=== PATIENT | female | born 1960 | race Caucasian/White ===

== ENCOUNTER 2017-05-10 10:57 | Inpatient (IN) | payer OTHER ==
[2017-05-10 11:43] VITALS: BMI 26.9
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
[2017-05-10] MEDS ORDERED: MAG HYDROX/AL HYDROX/SIMETH 30 ML UNIT-DOSE CUP PO PRN (17:33)
[2017-05-10] MEDS ORDERED: MENTHOL/PHENOL 1 EACH UD MM PRN (17:33)
[2017-05-10] MEDS ORDERED: NICOTINE POLACRILEX 2 MG GUM BC PRN (17:33)
[2017-05-10] MEDS ORDERED: MAGNESIUM CITRATE 300 ML BOTTLE PO PRN (17:33)
[2017-05-10] MEDS ORDERED: ACETAMINOPHEN 325 MG TABLET (FP) PO PRN (17:33)
[2017-05-10] MEDS ORDERED: MAGNESIUM HYDROX 2400MG/30ML ORAL SUSPENSION 30 ML CUP PO PRN (17:33)
[2017-05-10] MEDS ORDERED: LOPERAMIDE HCL 2 MG CAPSULE PO PRN (17:33)
[2017-05-10] MEDS ORDERED: P-EPHED 60MG/TRIPROLIDI 2.5MG TABLET PO PRN (17:33)
[2017-05-10] MEDS ORDERED: guaiFENesin/D-METHORPHAN HB 10 ML UNIT-DOSE CUPS PO PRN (17:33)
[2017-05-10] MEDS ORDERED: ALBUTEROL SO4 6.7 GM HFA INHALER IH PRN (17:35)
[2017-05-10] MEDS ORDERED: ALBUTEROL SO4 2.5/IPRATROPIUM 0.5 INH SOL 3 ML VIAL.NEB. NEB PRN (17:36)
[2017-05-10] MEDS ORDERED: COLLOIDAL OATMEAL 1 BAR EACH TP PRN (17:37)
[2017-05-10] MEDS ORDERED: TUBERCULIN PPD 5 TU/0.1ML VIAL ID ONE (18:45)
[2017-05-10] MEDS: RANITIDINE HCL 150 MG TABLET (FP) PO SCH (21:58)
[2017-05-10] MEDS: BUPRENORPHINE/NALOXONE 8 MG/2 MG FILM PACKET SL SCH (21:58)
[2017-05-10] MEDS: SENNOSIDES 8.6MG TABLET (FP) PO SCH (21:58)
[2017-05-10] MEDS: THIAMINE HCL 100 MG TABLET (FP) PO SCH (21:58)
[2017-05-11] MEDS: diphenhydrAMINE HCL 50 MG CAPSULE PO PRN ×2 (00:26→21:26)
[2017-05-11] MEDS ORDERED: LEVOTHYROXINE NA 25 MCG TABLET (FP) ONE (05:42)
[2017-05-11] MEDS ORDERED: LEVOTHYROXINE NA 100 MCG TABLET (FP) ONE (05:42)
[2017-05-11] MEDS: LEVOTHYROXINE 100 MCG, LEVOTHYROXINE 25 MCG PO SCH (06:56)
[2017-05-11] MEDS ORDERED: LEVOTHYROXINE NA 125 MCG TABLET (FP) PO SCH (07:00)
[2017-05-11] MEDS ORDERED: PT OWN MED DRAWER 7, Y5N ONE (08:24)
--- NOTE | 2017-05-11 09:46 | EKG ---
Test Reason : Blood Pressure : / mmHG Vent. Rate : 066 BPM Atrial Rate : 066 BPM P-R Int : 170 ms QRS Dur : 088 ms QT Int : 422 ms P-R-T Axes : 073 038 060 degrees QTc Int : 442 ms NORMAL SINUS RHYTHM NORMAL ECG NO PREVIOUS ECGS AVAILABLE Confirmed by ERIC BHANDARI MD ([id number]) on 05/11/2017 9:45:52 AM Referred By: Confirmed By:ERIC BHANDARI MD
[2017-05-11 10:00] LABS: URINE APPEARANCE CLEAR; URINE BILIRUBIN NEGATIVE (NEGATIVE); URINE COLOR LTYELLOW; URINE GLUCOSE (UA) NEGATIVE (NEGATIVE); URINE KETONE NEGATIVE (NEGATIVE); URINE NITRITE NEGATIVE (NEGATIVE); URINE PROTEIN NEGATIVE (NEGATIVE); URINE UROBILINOGEN NEGATIVE E.U./dl (0.2-1.0)
[2017-05-11] MEDS ORDERED: LISINOPRIL 10 MG TABLET (FP) PO SCH (10:00)
[2017-05-11 10:01] LABS: MCH 28.4 pg (25.7-33.7); MCHC 33.1 g/dl (32.0-36.0); MEAN CELL VOLUME 85.8 fl (80-96); MEAN PLT VOLUME 8.9 fl (7.5-11.1); PLATELET COUNT 284 K/MM3 (134-434); RDW 13.8 % (11.6-15.6); WHITE BLOOD COUNT 8.1 K/mm3 (4.0-10.0)
[2017-05-11 10:11] LABS: URINE BLOOD 1+ (NEGATIVE); URINE LEUK ESTERASE 2+ (NEGATIVE)
[2017-05-11 10:12] LABS: URINE BACTERIA RARE /hpf (NONE SEEN); URINE MUCUS RARE; URINE RBC 5 /hpf (0-3); URINE WBC 10 /hpf (3-5)
[2017-05-11] MEDS: NICOTINE 14 MG/24 HOURS TOPICAL PATCH TD SCH (10:26)
[2017-05-11] MEDS: BUPRENORPHINE/NALOXONE 8 MG/2 MG FILM PACKET SL SCH ×2 (10:26→21:22)
[2017-05-11] MEDS: PRENATAL VITAMINS W/ FOLIC ACID TABLET (FP) PO SCH (10:26)
[2017-05-11] MEDS: RANITIDINE HCL 150 MG TABLET (FP) PO SCH ×2 (10:26→21:23)
[2017-05-11] MEDS: CALCIUM 250MG/VIT-D 125 UNITS 1 COMBO TABLET PO SCH (10:26)
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
[2017-05-11 10:51] LABS: ALBUMIN 3.6 g/dl (3.4-5.0); ALK PHOS 79 U/L (45-117); ANION GAP 7 (8-16); BILIRUBIN,TOTAL 0.4 mg/dL (0.2-1.0); CALCIUM 9.5 mg/dL (8.5-10.1); CO2 30 mmol/L (21-32); GLUCOSE,RANDOM 73 mg/dL (74-106); SGOT/AST 17 U/L (15-37); SGPT/ALT 14 U/L (12-78); TOT PROT 7.4 g/dl (6.4-8.2)
[2017-05-11] MEDS: lamoTRIgine 25 MG TABLET PO SCH ×2 (12:18→21:26)
[2017-05-11] MEDS: ESCITALOPRAM OXALATE 20 MG TABLET (FP) PO SCH (12:19)
[2017-05-11] MEDS: THIAMINE HCL 100 MG TABLET (FP) PO SCH (21:22)
[2017-05-11] MEDS: SENNOSIDES 8.6MG TABLET (FP) PO SCH (21:23)
[2017-05-11] MEDS: LISINOPRIL 10 MG TABLET (FP) PO SCH (21:26)
[2017-05-12] MEDS ORDERED: LEVOTHYROXINE NA 25 MCG TABLET (FP) ONE (06:20)
[2017-05-12] MEDS ORDERED: LEVOTHYROXINE NA 100 MCG TABLET (FP) ONE (06:20)
[2017-05-12] MEDS: LEVOTHYROXINE 100 MCG, LEVOTHYROXINE 25 MCG PO SCH (06:42)
[2017-05-12] MEDS: LISINOPRIL 10 MG TABLET (FP) PO SCH ×2 (09:38→21:29)
[2017-05-12] MEDS: PRENATAL VITAMINS W/ FOLIC ACID TABLET (FP) PO SCH (09:38)
[2017-05-12] MEDS: RANITIDINE HCL 150 MG TABLET (FP) PO SCH ×2 (09:38→21:29)
[2017-05-12] MEDS: ESCITALOPRAM OXALATE 20 MG TABLET (FP) PO SCH (09:39)
[2017-05-12] MEDS: BUPRENORPHINE/NALOXONE 8 MG/2 MG FILM PACKET SL SCH ×2 (09:39→21:30)
[2017-05-12] MEDS: lamoTRIgine 25 MG TABLET PO SCH ×2 (09:39→21:29)
[2017-05-12] MEDS: CALCIUM 250MG/VIT-D 125 UNITS 1 COMBO TABLET PO SCH (09:39)
[2017-05-12] MEDS: NICOTINE 14 MG/24 HOURS TOPICAL PATCH TD SCH (09:40)
[2017-05-12] MEDS: THIAMINE HCL 100 MG TABLET (FP) PO SCH (21:29)
[2017-05-12] MEDS: SENNOSIDES 8.6MG TABLET (FP) PO SCH (21:30)
[2017-05-13] MEDS: diphenhydrAMINE HCL 50 MG CAPSULE PO PRN ×2 (00:05→21:07)
[2017-05-13] MEDS ORDERED: LEVOTHYROXINE NA 100 MCG TABLET (FP) ONE (03:16)
[2017-05-13] MEDS ORDERED: LEVOTHYROXINE NA 25 MCG TABLET (FP) ONE (03:17)
[2017-05-13] MEDS: LEVOTHYROXINE 100 MCG, LEVOTHYROXINE 25 MCG PO SCH (06:44)
[2017-05-13] MEDS ORDERED: PT OWN MED DRAWER 7, Y5N ONE (08:12)
[2017-05-13] MEDS: LISINOPRIL 10 MG TABLET (FP) PO SCH ×2 (09:32→21:06)
[2017-05-13] MEDS: PRENATAL VITAMINS W/ FOLIC ACID TABLET (FP) PO SCH (09:33)
[2017-05-13] MEDS: RANITIDINE HCL 150 MG TABLET (FP) PO SCH ×2 (09:33→21:06)
[2017-05-13] MEDS: CALCIUM 250MG/VIT-D 125 UNITS 1 COMBO TABLET PO SCH (09:33)
[2017-05-13] MEDS: lamoTRIgine 25 MG TABLET PO SCH ×2 (09:33→21:06)
[2017-05-13] MEDS: ESCITALOPRAM OXALATE 20 MG TABLET (FP) PO SCH (09:34)
[2017-05-13] MEDS: NICOTINE 14 MG/24 HOURS TOPICAL PATCH TD SCH (09:34)
[2017-05-13] MEDS: BUPRENORPHINE/NALOXONE 8 MG/2 MG FILM PACKET SL SCH ×2 (09:34→21:07)
[2017-05-13] MEDS: THIAMINE HCL 100 MG TABLET (FP) PO SCH (21:06)
[2017-05-13] MEDS: SENNOSIDES 8.6MG TABLET (FP) PO SCH (21:06)
[2017-05-14] MEDS ORDERED: LEVOTHYROXINE NA 25 MCG TABLET (FP) ONE (03:15)
[2017-05-14] MEDS ORDERED: LEVOTHYROXINE NA 100 MCG TABLET (FP) ONE (03:15)
[2017-05-14] MEDS: LEVOTHYROXINE 100 MCG, LEVOTHYROXINE 25 MCG PO SCH (06:12)
[2017-05-14] MEDS: lamoTRIgine 25 MG TABLET PO SCH ×2 (10:03→21:29)
[2017-05-14] MEDS: PRENATAL VITAMINS W/ FOLIC ACID TABLET (FP) PO SCH (10:03)
[2017-05-14] MEDS: CALCIUM 250MG/VIT-D 125 UNITS 1 COMBO TABLET PO SCH (10:03)
[2017-05-14] MEDS: ESCITALOPRAM OXALATE 20 MG TABLET (FP) PO SCH (10:03)
[2017-05-14] MEDS: BUPRENORPHINE/NALOXONE 8 MG/2 MG FILM PACKET SL SCH ×2 (10:03→21:29)
[2017-05-14] MEDS: RANITIDINE HCL 150 MG TABLET (FP) PO SCH ×2 (10:04→21:29)
[2017-05-14] MEDS ORDERED: PT OWN MED DRAWER 7, Y5N ONE (10:04)
[2017-05-14] MEDS: NICOTINE 14 MG/24 HOURS TOPICAL PATCH TD SCH (10:05)
[2017-05-14] MEDS: LISINOPRIL 10 MG TABLET (FP) PO SCH ×2 (10:44→21:29)
[2017-05-14] MEDS ORDERED: IBUPROFEN 600 MG TABLET (FP) PO PRN (10:45)
--- NOTE | 2017-05-14 10:47 | PN ---
[facility] Progress Note Note: Pt. inadvertently hit left leg on chair Exam : No bruising noted, no injury P : Motrin 600mg prn for pain.
[2017-05-14] MEDS: SENNOSIDES 8.6MG TABLET (FP) PO SCH (21:29)
[2017-05-14] MEDS: THIAMINE HCL 100 MG TABLET (FP) PO SCH (21:31)
[2017-05-15] MEDS ORDERED: LEVOTHYROXINE NA 100 MCG TABLET (FP) ONE (05:40)
[2017-05-15] MEDS ORDERED: LEVOTHYROXINE NA 25 MCG TABLET (FP) ONE (05:41)
[2017-05-15] MEDS: LEVOTHYROXINE 100 MCG, LEVOTHYROXINE 25 MCG PO SCH (06:28)
[2017-05-15] MEDS ORDERED: PT OWN MED DRAWER 7, Y5N ONE (08:18)
[2017-05-15] MEDS: CALCIUM 250MG/VIT-D 125 UNITS 1 COMBO TABLET PO SCH (09:41)
[2017-05-15] MEDS: ESCITALOPRAM OXALATE 20 MG TABLET (FP) PO SCH (09:41)
[2017-05-15] MEDS: RANITIDINE HCL 150 MG TABLET (FP) PO SCH ×2 (09:41→21:21)
[2017-05-15] MEDS: LISINOPRIL 10 MG TABLET (FP) PO SCH ×2 (09:41→21:21)
[2017-05-15] MEDS: NICOTINE 14 MG/24 HOURS TOPICAL PATCH TD SCH (09:41)
[2017-05-15] MEDS: lamoTRIgine 25 MG TABLET PO SCH ×2 (09:41→21:21)
[2017-05-15] MEDS: PRENATAL VITAMINS W/ FOLIC ACID TABLET (FP) PO SCH (09:41)
[2017-05-15] MEDS: BUPRENORPHINE/NALOXONE 8 MG/2 MG FILM PACKET SL SCH ×2 (09:42→21:21)
[2017-05-15] MEDS: SENNOSIDES 8.6MG TABLET (FP) PO SCH (21:21)
[2017-05-15] MEDS: THIAMINE HCL 100 MG TABLET (FP) PO SCH (21:23)
[2017-05-15] MEDS: diphenhydrAMINE HCL 50 MG CAPSULE PO PRN (21:55)
[2017-05-16] MEDS ORDERED: LEVOTHYROXINE NA 100 MCG TABLET (FP) ONE (03:22)
[2017-05-16] MEDS ORDERED: LEVOTHYROXINE NA 25 MCG TABLET (FP) ONE (03:23)
[2017-05-16] MEDS: LEVOTHYROXINE 100 MCG, LEVOTHYROXINE 25 MCG PO SCH (06:09)
[2017-05-16] MEDS: BUPRENORPHINE/NALOXONE 8 MG/2 MG FILM PACKET SL SCH ×2 (09:47→21:14)
[2017-05-16] MEDS: lamoTRIgine 25 MG TABLET PO SCH ×2 (09:47→21:16)
[2017-05-16] MEDS: LISINOPRIL 10 MG TABLET (FP) PO SCH ×2 (09:47→21:17)
[2017-05-16] MEDS: NICOTINE 14 MG/24 HOURS TOPICAL PATCH TD SCH (09:47)
[2017-05-16] MEDS: PRENATAL VITAMINS W/ FOLIC ACID TABLET (FP) PO SCH (09:48)
[2017-05-16] MEDS: ESCITALOPRAM OXALATE 20 MG TABLET (FP) PO SCH (09:48)
[2017-05-16] MEDS: CALCIUM 250MG/VIT-D 125 UNITS 1 COMBO TABLET PO SCH (09:48)
[2017-05-16] MEDS: RANITIDINE HCL 150 MG TABLET (FP) PO SCH ×2 (09:48→21:14)
[2017-05-16] MEDS: THIAMINE HCL 100 MG TABLET (FP) PO SCH (21:14)
[2017-05-16] MEDS: SENNOSIDES 8.6MG TABLET (FP) PO SCH (21:14)
[2017-05-16] MEDS: diphenhydrAMINE HCL 50 MG CAPSULE PO PRN (21:15)
[2017-05-17] MEDS ORDERED: LEVOTHYROXINE NA 100 MCG TABLET (FP) ONE (03:24)
[2017-05-17] MEDS ORDERED: LEVOTHYROXINE NA 25 MCG TABLET (FP) ONE (03:24)
[2017-05-17] MEDS: LEVOTHYROXINE 100 MCG, LEVOTHYROXINE 25 MCG PO SCH (06:26)
[2017-05-17] MEDS: NICOTINE 14 MG/24 HOURS TOPICAL PATCH TD SCH (09:56)
[2017-05-17] MEDS: lamoTRIgine 25 MG TABLET PO SCH ×2 (09:57→21:19)
[2017-05-17] MEDS: PRENATAL VITAMINS W/ FOLIC ACID TABLET (FP) PO SCH (09:57)
[2017-05-17] MEDS: RANITIDINE HCL 150 MG TABLET (FP) PO SCH ×2 (09:57→21:20)
[2017-05-17] MEDS: ESCITALOPRAM OXALATE 20 MG TABLET (FP) PO SCH (09:57)
[2017-05-17] MEDS: BUPRENORPHINE/NALOXONE 8 MG/2 MG FILM PACKET SL SCH ×2 (09:57→21:20)
[2017-05-17] MEDS: LISINOPRIL 10 MG TABLET (FP) PO SCH ×2 (09:57→21:20)
[2017-05-17] MEDS: CALCIUM 250MG/VIT-D 125 UNITS 1 COMBO TABLET PO SCH (09:58)
[2017-05-17] MEDS: SENNOSIDES 8.6MG TABLET (FP) PO SCH (21:19)
[2017-05-17] MEDS: THIAMINE HCL 100 MG TABLET (FP) PO SCH (21:20)
[2017-05-17] MEDS: diphenhydrAMINE HCL 50 MG CAPSULE PO PRN (21:21)
[2017-05-18] MEDS ORDERED: LEVOTHYROXINE NA 25 MCG TABLET (FP) ONE (03:13)
[2017-05-18] MEDS ORDERED: LEVOTHYROXINE NA 100 MCG TABLET (FP) ONE (03:13)
[2017-05-18] MEDS: LEVOTHYROXINE 100 MCG, LEVOTHYROXINE 25 MCG PO SCH (06:22)
[2017-05-18] MEDS: PRENATAL VITAMINS W/ FOLIC ACID TABLET (FP) PO SCH (10:11)
[2017-05-18] MEDS: CALCIUM 250MG/VIT-D 125 UNITS 1 COMBO TABLET PO SCH (10:11)
[2017-05-18] MEDS: LISINOPRIL 10 MG TABLET (FP) PO SCH ×2 (10:11→21:36)
[2017-05-18] MEDS: ESCITALOPRAM OXALATE 20 MG TABLET (FP) PO SCH (10:12)
[2017-05-18] MEDS: RANITIDINE HCL 150 MG TABLET (FP) PO SCH ×2 (10:12→21:36)
[2017-05-18] MEDS: lamoTRIgine 25 MG TABLET PO SCH ×2 (10:12→21:36)
[2017-05-18] MEDS: NICOTINE 14 MG/24 HOURS TOPICAL PATCH TD SCH (10:13)
[2017-05-18] MEDS ORDERED: BUPRENORPHINE/NALOXONE 8 MG/2 MG FILM PACKET SL ONE (12:27)
[2017-05-18] MEDS: SENNOSIDES 8.6MG TABLET (FP) PO SCH (21:35)
[2017-05-18] MEDS: THIAMINE HCL 100 MG TABLET (FP) PO SCH (21:36)
[2017-05-18] MEDS: BUPRENORPHINE/NALOXONE 8 MG/2 MG FILM PACKET SL SCH (21:37)
[2017-05-19] MEDS ORDERED: LEVOTHYROXINE NA 100 MCG TABLET (FP) ONE (05:37)
[2017-05-19] MEDS ORDERED: LEVOTHYROXINE NA 25 MCG TABLET (FP) ONE (05:38)
[2017-05-19] MEDS: LEVOTHYROXINE 100 MCG, LEVOTHYROXINE 25 MCG PO SCH (06:41)
[2017-05-19] MEDS: BUPRENORPHINE/NALOXONE 8 MG/2 MG FILM PACKET SL SCH ×2 (09:44→21:23)
[2017-05-19] MEDS: CALCIUM 250MG/VIT-D 125 UNITS 1 COMBO TABLET PO SCH (09:44)
[2017-05-19] MEDS: NICOTINE 14 MG/24 HOURS TOPICAL PATCH TD SCH (09:44)
[2017-05-19] MEDS: RANITIDINE HCL 150 MG TABLET (FP) PO SCH ×2 (09:44→21:23)
[2017-05-19] MEDS: PRENATAL VITAMINS W/ FOLIC ACID TABLET (FP) PO SCH (09:44)
[2017-05-19] MEDS: ESCITALOPRAM OXALATE 20 MG TABLET (FP) PO SCH (09:44)
[2017-05-19] MEDS: lamoTRIgine 25 MG TABLET PO SCH ×2 (09:45→21:23)
[2017-05-19] MEDS: LISINOPRIL 10 MG TABLET (FP) PO SCH ×2 (09:45→21:24)
[2017-05-19] MEDS: THIAMINE HCL 100 MG TABLET (FP) PO SCH (21:23)
[2017-05-19] MEDS: SENNOSIDES 8.6MG TABLET (FP) PO SCH (21:23)
[2017-05-19] MEDS: diphenhydrAMINE HCL 50 MG CAPSULE PO PRN (21:25)
[2017-05-20] MEDS ORDERED: LEVOTHYROXINE NA 100 MCG TABLET (FP) ONE (05:35)
[2017-05-20] MEDS ORDERED: LEVOTHYROXINE NA 25 MCG TABLET (FP) ONE (05:35)
[2017-05-20] MEDS: LEVOTHYROXINE 100 MCG, LEVOTHYROXINE 25 MCG PO SCH (06:08)
[2017-05-20] MEDS: RANITIDINE HCL 150 MG TABLET (FP) PO SCH ×2 (09:49→21:25)
[2017-05-20] MEDS: CALCIUM 250MG/VIT-D 125 UNITS 1 COMBO TABLET PO SCH (09:49)
[2017-05-20] MEDS: PRENATAL VITAMINS W/ FOLIC ACID TABLET (FP) PO SCH (09:49)
[2017-05-20] MEDS: lamoTRIgine 25 MG TABLET PO SCH ×2 (09:49→21:25)
[2017-05-20] MEDS: ESCITALOPRAM OXALATE 20 MG TABLET (FP) PO SCH (09:50)
[2017-05-20] MEDS: NICOTINE 14 MG/24 HOURS TOPICAL PATCH TD SCH ×2 (09:50→09:52)
[2017-05-20] MEDS: LISINOPRIL 10 MG TABLET (FP) PO SCH ×2 (09:50→21:26)
[2017-05-20] MEDS: BUPRENORPHINE/NALOXONE 8 MG/2 MG FILM PACKET SL SCH ×2 (09:51→21:25)
[2017-05-20] MEDS: SENNOSIDES 8.6MG TABLET (FP) PO SCH (21:25)
[2017-05-20] MEDS: diphenhydrAMINE HCL 50 MG CAPSULE PO PRN (21:25)
[2017-05-20] MEDS: THIAMINE HCL 100 MG TABLET (FP) PO SCH (21:25)
[2017-05-21] MEDS ORDERED: LEVOTHYROXINE NA 100 MCG TABLET (FP) ONE (05:38)
[2017-05-21] MEDS ORDERED: LEVOTHYROXINE NA 25 MCG TABLET (FP) ONE (05:38)
[2017-05-21] MEDS: LEVOTHYROXINE 100 MCG, LEVOTHYROXINE 25 MCG PO SCH (06:11)
[2017-05-21] MEDS: PRENATAL VITAMINS W/ FOLIC ACID TABLET (FP) PO SCH (09:58)
[2017-05-21] MEDS: ESCITALOPRAM OXALATE 20 MG TABLET (FP) PO SCH (09:59)
[2017-05-21] MEDS: lamoTRIgine 25 MG TABLET PO SCH ×2 (09:59→21:24)
[2017-05-21] MEDS: CALCIUM 250MG/VIT-D 125 UNITS 1 COMBO TABLET PO SCH (09:59)
[2017-05-21] MEDS: RANITIDINE HCL 150 MG TABLET (FP) PO SCH ×2 (09:59→21:24)
[2017-05-21] MEDS: NICOTINE 14 MG/24 HOURS TOPICAL PATCH TD SCH (09:59)
[2017-05-21] MEDS: BUPRENORPHINE/NALOXONE 8 MG/2 MG FILM PACKET SL SCH ×2 (09:59→21:24)
[2017-05-21] MEDS: LISINOPRIL 10 MG TABLET (FP) PO SCH ×2 (12:14→21:23)
[2017-05-21] MEDS: THIAMINE HCL 100 MG TABLET (FP) PO SCH (21:23)
[2017-05-21] MEDS: SENNOSIDES 8.6MG TABLET (FP) PO SCH (21:24)
[2017-05-21] MEDS: diphenhydrAMINE HCL 50 MG CAPSULE PO PRN (21:25)
[2017-05-22] MEDS ORDERED: LEVOTHYROXINE NA 25 MCG TABLET (FP) ONE (03:18)
[2017-05-22] MEDS ORDERED: LEVOTHYROXINE NA 100 MCG TABLET (FP) ONE (03:18)
[2017-05-22] MEDS: LEVOTHYROXINE 100 MCG, LEVOTHYROXINE 25 MCG PO SCH (06:06)
[2017-05-22] MEDS: ESCITALOPRAM OXALATE 20 MG TABLET (FP) PO SCH (10:27)
[2017-05-22] MEDS: RANITIDINE HCL 150 MG TABLET (FP) PO SCH ×2 (10:27→21:35)
[2017-05-22] MEDS: NICOTINE 14 MG/24 HOURS TOPICAL PATCH TD SCH (10:27)
[2017-05-22] MEDS: PRENATAL VITAMINS W/ FOLIC ACID TABLET (FP) PO SCH (10:27)
[2017-05-22] MEDS: CALCIUM 250MG/VIT-D 125 UNITS 1 COMBO TABLET PO SCH (10:28)
[2017-05-22] MEDS: BUPRENORPHINE/NALOXONE 8 MG/2 MG FILM PACKET SL SCH ×2 (10:28→21:36)
[2017-05-22] MEDS: lamoTRIgine 25 MG TABLET PO SCH ×2 (10:28→21:34)
[2017-05-22] MEDS: LISINOPRIL 10 MG TABLET (FP) PO SCH ×2 (10:28→21:35)
[2017-05-22] MEDS: SENNOSIDES 8.6MG TABLET (FP) PO SCH (21:35)
[2017-05-22] MEDS: THIAMINE HCL 100 MG TABLET (FP) PO SCH (21:35)
[2017-05-22] MEDS: diphenhydrAMINE HCL 50 MG CAPSULE PO PRN (21:36)
[2017-05-23] MEDS ORDERED: LEVOTHYROXINE NA 25 MCG TABLET (FP) ONE (05:54)
[2017-05-23] MEDS ORDERED: LEVOTHYROXINE NA 100 MCG TABLET (FP) ONE (05:54)
[2017-05-23] MEDS: LEVOTHYROXINE 100 MCG, LEVOTHYROXINE 25 MCG PO SCH (06:20)
[2017-05-23] MEDS: PRENATAL VITAMINS W/ FOLIC ACID TABLET (FP) PO SCH (10:18)
[2017-05-23] MEDS: LISINOPRIL 10 MG TABLET (FP) PO SCH ×2 (10:18→21:21)
[2017-05-23] MEDS: lamoTRIgine 25 MG TABLET PO SCH ×2 (10:18→21:21)
[2017-05-23] MEDS: ESCITALOPRAM OXALATE 20 MG TABLET (FP) PO SCH (10:18)
[2017-05-23] MEDS: NICOTINE 14 MG/24 HOURS TOPICAL PATCH TD SCH (10:18)
[2017-05-23] MEDS: RANITIDINE HCL 150 MG TABLET (FP) PO SCH ×2 (10:18→21:21)
[2017-05-23] MEDS: CALCIUM 250MG/VIT-D 125 UNITS 1 COMBO TABLET PO SCH (10:18)
[2017-05-23] MEDS: BUPRENORPHINE/NALOXONE 8 MG/2 MG FILM PACKET SL SCH ×2 (10:20→21:21)
--- NOTE | 2017-05-23 16:27 | PN ---
Psychiatric Progress Note Vital Signs: Vital Signs Period Temp Pulse Resp BP Sys/Gomez Pulse Ox Last 24 Hr 97.7 F 59-60 18-18 134-168/80-84 Date of Session: 05/23/17 Chief Complaint:: Discharge visit HPI: Patient addressed Opioid dependence comorbid with Bipolar disorder. ROS: Significant for BA,HTN,Hep C,GERD. Current Medications: Active Medications Generic Name Dose Route Start Last Admin Trade Name Freq PRN Reason Stop Dose Admin Acetaminophen 650 mg 05/10/17 17:33 05/14/17 09:07 Tylenol - PO 650 mg Q4H PRN Administration PAIN Al Hydroxide/Mg Hydroxide 30 ml 05/10/17 17:33 Mylanta Oral Suspension - PO Q6H PRN DYSPEPSIA Albuterol Sulfate 2 puff 05/10/17 17:35 Ventolin Hfa Inhaler - IH Q4H PRN SHORT OF BREATH/WHEEZING Buprenorphine/Naloxone 1 each 05/18/17 22:00 05/23/17 10:20 Suboxone 8mg/2mg Sl Film - SL 05/25/17 21:59 1 each BID DEBRA Administration Calcium/Vitamin D 1 tab 05/11/17 10:00 05/23/17 10:18 Oscal 250 Mg+D - PO 1 tab DAILY DEBRA Administration Colloidal Oatmeal 1 applic 05/10/17 17:37 05/11/17 21:25 Aveeno Soap - TP 1 bar DAILY PRN Administration HYGEINE Diphenhydramine HCl 50 mg 05/10/17 17:33 05/22/17 21:36 Benadryl - PO 50 mg HSMR1 PRN Administration INSOMNIA Escitalopram Oxalate 20 mg 05/11/17 11:45 05/23/17 10:18 Lexapro - PO 20 mg DAILY DEBRA Administration Eucalyptus/Menthol/Phenol/Sorbitol 1 each 05/10/17 17:33 Cepastat Lozenge - MM Q4H PRN SORE THROAT Guaifenesin 10 ml 05/10/17 17:33 Robitussin Dm - PO Q6H PRN COUGH Ibuprofen 600 mg 05/14/17 10:45 05/22/17 20:03 Motrin - PO 600 mg Q6H PRN Administration FEVER Lamotrigine 25 mg 05/11/17 11:45 05/23/17 10:18 Lamictal - PO 25 mg BID DEBRA Administration Levothyroxine Sodium 100 mcg/ 125 mcg 05/11/17 07:00 05/23/17 06:20 Levothyroxine Sodium 25 mcg PO 125 mcg DAILY@0700 DEBRA Administration Lisinopril 20 mg 05/11/17 22:00 05/23/17 10:18 Prinivil PO 20 mg BID DEBRA Administration Loperamide HCl 4 mg 05/10/17 17:33 Imodium - PO Q6H PRN DIARRHEA Magnesium Citrate 300 ml 05/10/17 17:33 Citroma - PO Q48H PRN CONSTIPATION Magnesium Hydroxide 30 ml 05/10/17 17:33 Milk Of Magnesia - PO DAILY PRN CONSTIPATION Nicotine 14 mg 05/11/17 10:00 05/23/17 10:18 Nicoderm Patch - TD Not Given DAILY DEBRA Nicotine Polacrilex 2 mg 05/10/17 17:33 Nicorette Gum - BC Q2H PRN NICOTINE REPLACEMENT RX Multivit/Folic Acid/Iron 1 tab 05/11/17 10:00 05/23/17 10:18 Vitamins (Sjr) - PO 1 tab DAILY DEBRA Administration Pseudoephedrine/Triprolidine 1 combo 05/10/17 17:33 Actifed - PO TID PRN NASAL CONGESTION Ranitidine HCl 150 mg 05/10/17 22:00 05/23/17 10:18 Zantac - PO 150 mg BID DEBRA Administration Senna 2 tab 05/10/17 22:00 05/22/17 21:35 Senna - PO 2 tab HS DEBRA Administration Thiamine HCl 100 mg 05/10/17 22:00 05/22/17 21:35 Vitamin B1 - PO 100 mg HS DEBRA Administration Current Side Effect: No Lab tests ordered: No Lab tests reviewed: Yes Provider note:: Patient will complete this program tomorrow 05/24/17.She has met her treatment goals and will continue to address her issues on outpatient basis at [facility].Patient continues to find that Lamictal 25 mg po bid and Lexapro 20 mg po daily help to cope with depression,mood instability.Scripts for 30 days supply provided. Therapy provided focusing on relapse prevention including support system,coping skills utilization to maintain recovery. Patient is stable for discharge tomorrow 05/24/17. Total face to face time:: 30 Mental Status Exam - Mental Status Exam Alert and Oriented to: Time, Place, Person Cognitive Function: Grossly Intact Patient Appearance: Well Groomed Mood: Euthymic Affect: Mood Congruent, Normal Range, Euthymic Patient Behavior: Cooperative Speech Pattern: Clear Voice Loudness: Normal Thought Process: Goal Oriented Thought Disorder: Not Present Hallucinations: Denies Suicidal Ideation: Denies Homicidal Ideation: Denies Insight/Judgement: Fair Sleep: Fair Appetite: Good Muscle strength/Tone: Normal Gait/Station: Normal Psychiatric Treatment Plan - Problem List (1) Asthma Qualifiers: Asthma severity: mild persistent Asthma complication type: with status asthmaticus Qualified Code(s): J45.32 - Mild persistent asthma with status asthmaticus (2) GERD (gastroesophageal reflux disease) Qualifiers: Esophagitis presence: without esophagitis Qualified Code(s): K21.9 - Gastro-esophageal reflux disease without esophagitis (4) Hypertension Qualifiers: Hypertension type: essential hypertension Qualified Code(s): I10 - Essential (primary) hypertension (5) Hypothyroidism Qualifiers: Hypothyroidism type: unspecified Qualified Code(s): E03.9 - Hypothyroidism, unspecified (7) COPD (chronic obstructive pulmonary disease) Qualifiers: Chronic bronchitis type: unspecified
[2017-05-23] MEDS: THIAMINE HCL 100 MG TABLET (FP) PO SCH (21:21)
[2017-05-23] MEDS: SENNOSIDES 8.6MG TABLET (FP) PO SCH (21:21)
[2017-05-23] MEDS: diphenhydrAMINE HCL 50 MG CAPSULE PO PRN (22:02)
[2017-05-24] MEDS ORDERED: LEVOTHYROXINE NA 25 MCG TABLET (FP) ONE (05:31)
[2017-05-24] MEDS ORDERED: LEVOTHYROXINE NA 100 MCG TABLET (FP) ONE (05:31)
[2017-05-24] MEDS: LEVOTHYROXINE 100 MCG, LEVOTHYROXINE 25 MCG PO SCH (06:15)
[2017-05-24 06:27] VITALS: TEMP 98.1
[2017-05-24] MEDS: CALCIUM 250MG/VIT-D 125 UNITS 1 COMBO TABLET PO SCH (09:07)
[2017-05-24] MEDS: ESCITALOPRAM OXALATE 20 MG TABLET (FP) PO SCH (09:07)
[2017-05-24] MEDS: lamoTRIgine 25 MG TABLET PO SCH (09:07)
[2017-05-24] MEDS: PRENATAL VITAMINS W/ FOLIC ACID TABLET (FP) PO SCH (09:07)
[2017-05-24] MEDS: LISINOPRIL 10 MG TABLET (FP) PO SCH (09:07)
[2017-05-24] MEDS: NICOTINE 14 MG/24 HOURS TOPICAL PATCH TD SCH (09:08)
[2017-05-24] MEDS: RANITIDINE HCL 150 MG TABLET (FP) PO SCH (09:08)
[2017-05-24] MEDS: BUPRENORPHINE/NALOXONE 8 MG/2 MG FILM PACKET SL SCH (09:08)
[2017-05-24 10:16] VITALS: BP 132/79; PULSE 71
== END 2017-05-24 09:16 | disposition home or self-care (01) | DRG 772 ==
LOC: YASAS 10:57 → Y3E 16:34
PROVIDERS: ADMIT Psychiatry & Neurology Psychiatry; ATTEND Psychiatry & Neurology Psychiatry
PROC: HZ42ZZZ Group Counseling for Substance Abuse Treatment, Cognitive-Behavioral (ICD-10-PCS; principal; 2017-05-24)
DX: F11.20 Opioid dependence, uncomplicated (principal); F17.213 Nicotine dependence, cigarettes, with withdrawal; F34.1 Dysthymic disorder; I10 Essential (primary) hypertension; K21.9 Gastro-esophageal reflux disease without esophagitis; E03.9 Hypothyroidism, unspecified; K59.01 Slow transit constipation; B18.2 Chronic viral hepatitis C; Z91.5 Personal history of self-harm
CPT/HCPCS: 36415; 80053; 81003; 81015; 85027; 86593; 93005; 93010

== ENCOUNTER 2017-08-27 10:37 | Inpatient (IN) | payer OTHER ==
[2017-08-27 11:54] VITALS: BMI 26.5
--- NOTE | 2017-08-27 13:58 | HP ---
Admission ROS [facility] Chief Complaint: i am here for rehab ,history of heroin dependence,on suboxone ,last treatment [facility] 05/10/17 to 05/24/17 multiple medical problem obey,htn,depression on suboxone maintenance longest period of sobriety 4 years Allergies/Adverse Reactions: Allergies Allergy/AdvReac Type Severity Reaction Status Date / Time No Known Allergies Allergy Verified 08/27/17 13:37 History of Present Illness: this 57 years old female with heroin dependence ,seeking rehab,as mentioned in chief complaint Exam Limitations: No Limitations - Ebola screening Have you traveled outside of the country in the last 21 days: No Have you had contact with anyone from an Ebola affected area: No Have you been sick,other than usual withdrawal symptoms: No Do you have a fever: No - Review of Systems Constitutional: No Symptoms Reported EENT: reports: No Symptoms Reported Respiratory: reports: No Symptoms reported Cardiac: reports: No Symptoms Reported GI: reports: No Symptoms Reported : reports: No Symptoms Reported Musculoskeletal: reports: No Symptoms Reported Integumentary: reports: No Symptoms Reported Neuro: reports: No Symptoms reported Endocrine: reports: No Symptoms Reported Hematology: reports: No Symptoms Reported Psychiatric: reports: Depressed Patient History - Patient Medical History Hx Anemia: Yes (was given iron pills) Hx Asthma: Yes (on albuterol inhaler) Hx Chronic Obstructive Pulmonary Disease (COPD): No Hx Cancer: No Hx Cardiac Disorders: No Hx Congestive Heart Failure: No Hx Hypertension: Yes (on med) Hx Hypercholesterolemia: No Hx Pacemaker: No HX Cerebrovascular Accident: No Hx Seizures: No Hx Dementia: No Hx Diabetes: No Hx Gastrointestinal Disorders: Yes Hx Liver Disease: No Hx Genitourinary Disorders: No Hx Sexually Transmitted Disorders: No Hx Renal Disease (ESRD): No Hx Thyroid Disease: Yes (HYPOTHYROIDISM -ON SYNTHROID) Hx Human Immunodeficiency Virus (HIV): No (NEGATIVE HX, LAST 03/09) Hx Hepatitis C: Yes (treated with SVR 2 years ago) Hx Depression: Yes Hx Suicide Attempt: Yes (OVERDOSE 2009) Hx Bipolar Disorder: No Hx Schizophrenia: No Other Medical History: no suicidal,no homicidal - Patient Surgical History Past Surgical History: Yes Hx Neurologic Surgery: No Hx Cataract Extraction: No Hx Cardiac Surgery: No Hx Lung Surgery: No Hx Breast Surgery: No Hx Breast Biopsy: No Hx Abdominal Surgery: No Hx Appendectomy: Yes (7 or 8 yo) Hx Cholecystectomy: No Hx Genitourinary Surgery: No Hx Section: No Hx Orthopedic Surgery: No Hx Hysterectomy: No Anesthesia Reaction: No - PPD History Previous Implant?: Yes Documented Results: Negative w/proof Date: 05/12/17 Results: 0mm PPD to be Administered?: No - Reproductive History Patient is a Female of Child Bearing Age (11 -55 yrs old): No Last Menstrual Period: 12/30/11 Patient : No - Smoking Cessation Smoking history: Current every day smoker Have you smoked in the past 12 months: Yes Aproximately how many cigarettes per day: 4 Cigars Per Day: 0 Hx Chewing Tobacco Use: No Initiated information on smoking cessation: Yes 'Breaking Loose' booklet given: 08/27/17 - Substance & Tx. History Hx Alcohol Use: No Hx Substance Use: Yes Substance Use Type: Heroin Hx [facility] 05/24/17) - Substances Abused Heroin Route: Injection Frequency: Daily Amount used: 3 BAGS Age of first use: 38 Date of Last Use: 08/27/17 Family Disease History - Family Disease History Family Disease History: Diabetes: Father (), Mother (depression; HTNDECEASED), Sister (depression; liver and kidney problems), Heart Disease: Mother, Sister, Other: Father, Mother, Sister Admission Physical Exam S - Vital Signs Vital Signs: Vital Signs - 24 hr 08/27/17 11:51 Temperature 96.2 F L Pulse Rate 90 Respiratory 20 Rate Blood Pressure 155/94 - Physical General Appearance: Yes: Within Normal Limits HEENTM: Yes: Normal ENT Inspection, MAI, Pharynx Normal Respiratory: Yes: Lungs Clear, Normal Breath Sounds, No Respiratory Distress Neck: Yes: Within Normal Limits, Supple, Trachea in good position Breast: Yes: Breast Exam Deferred Cardiology: Yes: Within Normal Limits, Regular Rhythm, Regular Rate, S1, S2 Abdominal: Yes: Within Normal Limits, Normal Bowel Sounds, Non Tender, Flat, Soft Genitourinary: Yes: Within Normal Limits Back: Yes: Within Normal Limits Musculoskeletal: Yes: Within Normal Limits Extremities: Yes: Within Normal Limits Neurological: Yes: [employer] II-XII NML intact, Fully Oriented, Alert, Motor Strength 5/5 Integumentary: Yes: Within Normal Limits, Track Gavin Lymphatic: Yes: Within Normal Limits - Diagnostic (1) History of anemia Current Visit: No Status: Acute (2) Opioid dependence Current Visit: No Status: Acute (3) Asthma Current Visit: No Status: Chronic Qualifiers: Asthma severity: mild persistent Asthma complication type: with status asthmaticus (4) Hypertension Current Visit: No Status: Chronic Qualifiers: Hypertension type: essential hypertension Qualified Code(s): I10 - Essential (primary) hypertension; I10 - Essential (primary) hypertension; I10 - Essential (primary) hypertension (5) Hypothyroidism Current Visit: No Status: Chronic Qualifiers: Hypothyroidism type: unspecified Qualified Code(s): E03.9 - Hypothyroidism, unspecified; E03.9 - Hypothyroidism, unspecified; E03.9 - Hypothyroidism, unspecified (6) Depression Current Visit: No Status: Suspected Qualifiers: Depression Type: dysthymia Qualified Code(s): F34.1 - Dysthymic disorder; F34.1 - Dysthymic disorder; F34.1 - Dysthymic disorder (7) Hepatitis C Current Visit: Yes Status: Acute (8) Anemia Current Visit: Yes Status: Acute Cleared for Admission [facility] - Detox or Rehab Claeared for Rehab Admission: Yes [facility] Breath Alcohol Content Breath Alcohol Content: 0 Urine Pregancy Test - Result Urine Test Results: Negative- NO Line Present Urine Drug Screen - Results Drug Screen Negative: No Urine Drug Screen Results: OPI-Opiates, MTD-Methadone Inpatient Rehab Admission - Initial Determination Are CD services needed?: Yes Free of communicable disease: Yes Not in need of hospitalization: Yes - Rehab Admission Criteria Poor recovery environment: Yes Comorbidities: Yes
[2017-08-27] MEDS ORDERED: MENTHOL/PHENOL 1 EACH UD MM PRN (14:16)
[2017-08-27] MEDS ORDERED: MAG HYDROX/AL HYDROX/SIMETH 30 ML UNIT-DOSE CUP PO PRN (14:16)
[2017-08-27] MEDS ORDERED: MAGNESIUM CITRATE 300 ML BOTTLE PO PRN (14:16)
[2017-08-27] MEDS ORDERED: NICOTINE POLACRILEX 2 MG GUM BC PRN (14:16)
[2017-08-27] MEDS ORDERED: MAGNESIUM HYDROX 2400MG/30ML ORAL SUSPENSION 30 ML CUP PO PRN (14:16)
[2017-08-27] MEDS ORDERED: guaiFENesin/D-METHORPHAN HB 10 ML UNIT-DOSE CUPS PO PRN (14:16)
[2017-08-27] MEDS ORDERED: P-EPHED 60MG/TRIPROLIDI 2.5MG TABLET PO PRN (14:16)
[2017-08-27] MEDS ORDERED: IBUPROFEN 400 MG TABLET (FP) PO PRN (14:16)
[2017-08-27] MEDS ORDERED: LOPERAMIDE HCL 2 MG CAPSULE PO PRN (14:16)
[2017-08-27] MEDS ORDERED: ACETAMINOPHEN 325 MG TABLET (FP) PO PRN (14:16)
[2017-08-27] MEDS ORDERED: ALBUTEROL SO4 18 GM HFA INHALER IH PRN (14:19)
[2017-08-27 18:48] LABS: URINE APPEARANCE SLCLOUDY; URINE BILIRUBIN NEGATIVE (NEGATIVE); URINE BLOOD NEGATIVE (NEGATIVE); URINE COLOR YELLOW; URINE GLUCOSE (UA) NEGATIVE (NEGATIVE); URINE KETONE NEGATIVE (NEGATIVE); URINE NITRITE NEGATIVE (NEGATIVE); URINE PROTEIN NEGATIVE (NEGATIVE); URINE UROBILINOGEN NEGATIVE mg/dL (0.2-1.0)
[2017-08-27 18:49] LABS: URINE LEUK ESTERASE 3+ (NEGATIVE)
[2017-08-27 18:58] LABS: URINE BACTERIA RARE /hpf (NONE SEEN); URINE MUCUS FEW; URINE RBC 11 /hpf (0-3); URINE WBC 38 /hpf (3-5)
[2017-08-27] MEDS: BUPRENORPHINE/NALOXONE 8 MG/2 MG FILM PACKET SL SCH (22:10)
[2017-08-27] MEDS: THIAMINE HCL 100 MG TABLET (FP) PO SCH (22:11)
[2017-08-27] MEDS ORDERED: CYCLOBENZAPRINE HCL 5 MG TABLET PO PRN (23:08)
[2017-08-27] MEDS: TRIMETHOBENZAMIDE HCL 200MG/2ML INJ IM PRN (23:49)
[2017-08-28] MEDS ORDERED: LEVOTHYROXINE NA 25 MCG TABLET (FP) ONE (07:21)
[2017-08-28] MEDS ORDERED: LEVOTHYROXINE NA 100 MCG TABLET (FP) ONE (07:21)
[2017-08-28] MEDS: LEVOTHYROXINE 25 MCG, LEVOTHYROXINE 100 MCG PO SCH (07:43)
[2017-08-28] MEDS ORDERED: cloNIDine HCL 0.1 MG TABLET PO PRN (07:44)
[2017-08-28] MEDS: TRIMETHOBENZAMIDE HCL 200MG/2ML INJ IM PRN (07:44)
[2017-08-28] MEDS: PRENATAL VITAMINS W/ FOLIC ACID TABLET (FP) PO SCH (09:48)
[2017-08-28] MEDS: LISINOPRIL 20 MG TABLET (FP) PO SCH (09:48)
[2017-08-28] MEDS: BUPRENORPHINE/NALOXONE 8 MG/2 MG FILM PACKET SL SCH ×2 (09:49→21:54)
--- NOTE | 2017-08-28 09:57 | EKG ---
Test Reason : Blood Pressure : / mmHG Vent. Rate : 075 BPM Atrial Rate : 075 BPM P-R Int : 138 ms QRS Dur : 082 ms QT Int : 382 ms P-R-T Axes : 077 014 058 degrees QTc Int : 426 ms NORMAL SINUS RHYTHM POSSIBLE LEFT ATRIAL ENLARGEMENT BORDERLINE ECG WHEN COMPARED WITH ECG OF 10-MAY-2017 20:17, NO SIGNIFICANT CHANGE WAS FOUND Confirmed by JUDITH LOVELACE MD ([id number]) on 08/28/2017 9:57:00 AM Referred By: Confirmed By:JUDITH LOVELACE MD
[2017-08-28] MEDS ORDERED: LEVOTHYROXINE NA 25 MCG TABLET (FP) PO SCH (10:00)
[2017-08-28] MEDS ORDERED: PT OWN MED DRAWER 7, Y5N ONE (10:50)
[2017-08-28] MEDS ORDERED: ONDANSETRON *ODT* 4 MG TABLET SL PRN (14:09)
[2017-08-28] MEDS ORDERED: BUPRENORPHINE/NALOXONE 8 MG/2 MG FILM PACKET SL ONE (14:53)
[2017-08-28] MEDS ORDERED: ONDANSETRON *ODT* 4 MG TABLET SL ONE (14:55)
[2017-08-28] MEDS ORDERED: cloNIDine HCL 0.1 MG TABLET PO ONE (14:56)
[2017-08-28] MEDS: CYCLOBENZAPRINE HCL 5 MG TABLET PO SCH ×2 (15:37→21:54)
[2017-08-28 15:40] LABS: MCH 27.7 pg (25.7-33.7); MCHC 33.2 g/dl (32.0-36.0); MEAN CELL VOLUME 83.3 fl (80-96); MEAN PLT VOLUME 9.5 fl (7.5-11.1); PLATELET COUNT 305 K/MM3 (134-434); RDW 14.6 % (11.6-15.6); WHITE BLOOD COUNT 15.4 K/mm3 (4.0-10.0)
[2017-08-28 16:11] LABS: ALBUMIN 4.3 g/dl (3.4-5.0); ALK PHOS 107 U/L (45-117); ANION GAP 9 (8-16); BILIRUBIN,TOTAL 0.7 mg/dL (0.2-1.0); CALCIUM 10.5 mg/dL (8.5-10.1); CO2 33 mmol/L (21-32); CREATININE 1.2 mg/dL (0.55-1.02); GLUCOSE,RANDOM 190 mg/dL (74-106); SGOT/AST 26 U/L (15-37); SGPT/ALT 24 U/L (12-78)
[2017-08-28] MEDS: NAPROXEN 500 MG TABLET (FP) PO SCH (21:54)
[2017-08-28] MEDS: cloNIDine HCL 0.1 MG TABLET PO SCH (21:54)
[2017-08-28] MEDS: THIAMINE HCL 100 MG TABLET (FP) PO SCH (21:54)
[2017-08-29] MEDS ORDERED: LEVOTHYROXINE NA 100 MCG TABLET (FP) ONE (03:34)
[2017-08-29] MEDS ORDERED: LEVOTHYROXINE NA 25 MCG TABLET (FP) ONE (03:34)
[2017-08-29] MEDS: LEVOTHYROXINE 25 MCG, LEVOTHYROXINE 100 MCG PO SCH (06:28)
[2017-08-29] MEDS: CYCLOBENZAPRINE HCL 5 MG TABLET PO SCH ×3 (06:28→21:45)
[2017-08-29] MEDS ORDERED: cloNIDine HCL 0.1 MG TABLET PO ONE ×2 (06:31→15:55)
[2017-08-29] MEDS: LISINOPRIL 20 MG TABLET (FP) PO SCH ×2 (10:47→21:48)
[2017-08-29] MEDS: NAPROXEN 500 MG TABLET (FP) PO SCH (10:47)
[2017-08-29] MEDS: PRENATAL VITAMINS W/ FOLIC ACID TABLET (FP) PO SCH (10:47)
[2017-08-29] MEDS: BUPRENORPHINE/NALOXONE 8 MG/2 MG FILM PACKET SL SCH ×2 (10:49→21:49)
[2017-08-29] MEDS: cloNIDine HCL 0.1 MG TABLET PO SCH ×2 (10:51→21:45)
[2017-08-29] MEDS ORDERED: PT OWN MED DRAWER 7, Y5N ONE (12:02)
--- NOTE | 2017-08-29 12:55 | HP ---
Psychiatrist Admission - Data Date of interview: 08/29/17 Admission source: [facility] Identifying data: This is the second admission to [address] [place] [address] for this 57 years old H female mother of grown son, domiciled,supported by [facility]. Medical History: Significant for GERD,COPD,HTN,Hep C,Hypothyroidism. Psychiatric History: Patient reports her first contact with psychiatrist at the age of 39 following suicidal attempt (overdose with heroin).Patient was dx with Bipolar disorder.She was placed on Seroquel,Klonopin,Trazodone,Ambien.She denies psychiatric hospitalizations .Sees psychiatrist at [facility] in the [place].Current medications:Lamictal 25 mg po bid(reports no response) .Patient states that Cymbalta was helping her in the past. Physical/Sexual Abuse/Trauma History: denies Vital Signs: Vital Signs - 24 hr 08/28/17 08/28/17 08/29/17 15:35 22:34 00:30 Temperature Pulse Rate 94 H 87 Respiratory 18 Rate Blood Pressure 195/108 171/102 08/29/17 08/29/17 07:32 09:42 Temperature 98.9 F Pulse Rate 84 97 H Respiratory 18 Rate Blood Pressure 184/109 104/72 Allergies/Adverse Reactions: Allergies Allergy/AdvReac Type Severity Reaction Status Date / Time No Known Allergies Allergy Verified 08/27/17 13:37 Date of last physical exam: 08/27/17 Concur with the findings of this exam: Yes - Substance Abuse/Tx History Hx Alcohol Use: No Hx Substance Use: Yes (reports sniffing heroin since 38 yo,progressed to IV use 4-5 bags daily) Substance Use Type: Heroin Hx Substance Use Treatment: Yes (completed this program in April 2017) Mental Status Exam - Mental Status Exam Alert and Oriented to: Time, Place, Person Cognitive Function: Grossly Intact Patient Appearance: Well Groomed Mood: Sad Affect: Labile Patient Behavior: Cooperative Speech Pattern: Clear Voice Loudness: Normal Thought Disorder: Not Present Hallucinations: Denies Suicidal Ideation: Denies Homicidal Ideation: Denies Insight/Judgement: Fair Sleep: Fair Appetite: Good Muscle strength/Tone: Normal Gait/Station: Normal Psychiatric Findings - Problem List ([place] 1, 2,3) (1) Anemia Current Visit: Yes Status: Chronic (2) Hepatitis C Current Visit: Yes Status: Resolved (3) Opioid dependence Current Visit: Yes Status: Chronic (4) Asthma Current Visit: Yes Status: Chronic Qualifiers: Asthma severity: mild persistent Asthma complication type: with status asthmaticus (5) Bipolar II disorder Current Visit: No Status: Chronic (6) COPD (chronic obstructive pulmonary disease) Current Visit: Yes Status: Chronic Qualifiers: Chronic bronchitis type: unspecified (7) GERD (gastroesophageal reflux disease) Current Visit: No Status: Chronic Qualifiers: Esophagitis presence: without esophagitis Qualified Code(s): K21.9 - Gastro-esophageal reflux disease without esophagitis; K21.9 - Gastro-esophageal reflux disease without esophagitis; K21.9 - Gastro-esophageal reflux disease without esophagitis (8) Hepatitis C antibody test positive Current Visit: Yes Status: Chronic (9) Hypertension Current Visit: Yes Status: Chronic Qualifiers: Hypertension type: essential hypertension Qualified Code(s): I10 - Essential (primary) hypertension; I10 - Essential (primary) hypertension; I10 - Essential (primary) hypertension - Initial Treatment Plan Initial Treatment Plan: Cymbalta 30 mg po daily,Seroquel 50 mg po hs. will monitor progress.
[2017-08-29] MEDS: hydrOXYzine PAMOATE 50 MG CAPSULE (FP) PO PRN (15:43)
[2017-08-29] MEDS: amLODIPine BESYLATE 10 MG TABLET (FP) PO SCH (17:53)
[2017-08-29] MEDS: THIAMINE HCL 100 MG TABLET (FP) PO SCH (21:45)
[2017-08-30] MEDS ORDERED: LEVOTHYROXINE NA 100 MCG TABLET (FP) ONE (03:16)
[2017-08-30] MEDS ORDERED: LEVOTHYROXINE NA 25 MCG TABLET (FP) ONE (03:17)
[2017-08-30] MEDS: hydrOXYzine PAMOATE 50 MG CAPSULE (FP) PO PRN (03:18)
[2017-08-30] MEDS: CYCLOBENZAPRINE HCL 5 MG TABLET PO SCH ×3 (06:41→21:05)
[2017-08-30] MEDS: LEVOTHYROXINE 25 MCG, LEVOTHYROXINE 100 MCG PO SCH (06:41)
[2017-08-30] MEDS: amLODIPine BESYLATE 10 MG TABLET (FP) PO SCH (09:34)
[2017-08-30] MEDS: LISINOPRIL 20 MG TABLET (FP) PO SCH ×2 (09:34→21:06)
[2017-08-30] MEDS: cloNIDine HCL 0.1 MG TABLET PO SCH ×2 (09:34→21:05)
[2017-08-30] MEDS: PRENATAL VITAMINS W/ FOLIC ACID TABLET (FP) PO SCH (09:34)
[2017-08-30] MEDS: BUPRENORPHINE/NALOXONE 8 MG/2 MG FILM PACKET SL SCH ×2 (09:35→22:34)
[2017-08-30] MEDS: THIAMINE HCL 100 MG TABLET (FP) PO SCH (21:06)
[2017-08-31] MEDS ORDERED: LEVOTHYROXINE NA 25 MCG TABLET (FP) ONE (04:26)
[2017-08-31] MEDS ORDERED: LEVOTHYROXINE NA 100 MCG TABLET (FP) ONE (04:26)
[2017-08-31] MEDS: LEVOTHYROXINE 25 MCG, LEVOTHYROXINE 100 MCG PO SCH (06:16)
[2017-08-31] MEDS: CYCLOBENZAPRINE HCL 5 MG TABLET PO SCH ×3 (06:16→21:48)
[2017-08-31] MEDS ORDERED: COLLOIDAL OATMEAL 1 BAR EACH TP PRN (08:45)
--- NOTE | 2017-08-31 08:46 | PN ---
S Progress Note Note: Patient requesting aveeno soap,not toerating standard issue. order entered.
[2017-08-31] MEDS: PRENATAL VITAMINS W/ FOLIC ACID TABLET (FP) PO SCH (09:59)
[2017-08-31] MEDS: BUPRENORPHINE/NALOXONE 8 MG/2 MG FILM PACKET SL SCH ×2 (10:00→21:48)
[2017-08-31] MEDS: cloNIDine HCL 0.1 MG TABLET PO SCH ×2 (10:01→21:48)
[2017-08-31] MEDS: amLODIPine BESYLATE 10 MG TABLET (FP) PO SCH (10:01)
[2017-08-31] MEDS: LISINOPRIL 20 MG TABLET (FP) PO SCH ×2 (10:02→21:47)
[2017-08-31] MEDS: THIAMINE HCL 100 MG TABLET (FP) PO SCH (21:47)
[2017-09-01] MEDS ORDERED: LEVOTHYROXINE NA 100 MCG TABLET (FP) ONE (03:25)
[2017-09-01] MEDS ORDERED: LEVOTHYROXINE NA 25 MCG TABLET (FP) ONE (03:25)
[2017-09-01] MEDS: CYCLOBENZAPRINE HCL 5 MG TABLET PO SCH ×3 (06:34→21:51)
[2017-09-01] MEDS: LEVOTHYROXINE 25 MCG, LEVOTHYROXINE 100 MCG PO SCH (06:34)
[2017-09-01] MEDS: cloNIDine HCL 0.1 MG TABLET PO SCH ×2 (10:14→21:51)
[2017-09-01] MEDS: LISINOPRIL 20 MG TABLET (FP) PO SCH ×2 (10:14→21:51)
[2017-09-01] MEDS: amLODIPine BESYLATE 10 MG TABLET (FP) PO SCH (10:14)
[2017-09-01] MEDS: PRENATAL VITAMINS W/ FOLIC ACID TABLET (FP) PO SCH (10:15)
[2017-09-01] MEDS: BUPRENORPHINE/NALOXONE 8 MG/2 MG FILM PACKET SL SCH ×2 (10:15→21:53)
[2017-09-01] MEDS: diphenhydrAMINE HCL 50 MG CAPSULE PO PRN (21:51)
[2017-09-01] MEDS: THIAMINE HCL 100 MG TABLET (FP) PO SCH (21:51)
[2017-09-01] MEDS: hydrOXYzine PAMOATE 50 MG CAPSULE (FP) PO PRN (23:42)
[2017-09-02] MEDS ORDERED: LEVOTHYROXINE NA 25 MCG TABLET (FP) ONE (03:28)
[2017-09-02] MEDS ORDERED: LEVOTHYROXINE NA 100 MCG TABLET (FP) ONE (03:28)
[2017-09-02] MEDS: CYCLOBENZAPRINE HCL 5 MG TABLET PO SCH ×3 (06:57→21:43)
[2017-09-02] MEDS: LEVOTHYROXINE 25 MCG, LEVOTHYROXINE 100 MCG PO SCH (06:57)
[2017-09-02] MEDS: amLODIPine BESYLATE 10 MG TABLET (FP) PO SCH (09:09)
[2017-09-02] MEDS: cloNIDine HCL 0.1 MG TABLET PO SCH ×2 (09:09→21:43)
[2017-09-02] MEDS: BUPRENORPHINE/NALOXONE 8 MG/2 MG FILM PACKET SL SCH ×2 (09:09→21:43)
[2017-09-02] MEDS: PRENATAL VITAMINS W/ FOLIC ACID TABLET (FP) PO SCH (09:10)
[2017-09-02] MEDS: LISINOPRIL 20 MG TABLET (FP) PO SCH ×2 (09:10→21:43)
[2017-09-02] MEDS: THIAMINE HCL 100 MG TABLET (FP) PO SCH (21:43)
[2017-09-02] MEDS: diphenhydrAMINE HCL 50 MG CAPSULE PO PRN (23:05)
[2017-09-03] MEDS ORDERED: LEVOTHYROXINE NA 25 MCG TABLET (FP) ONE (03:33)
[2017-09-03] MEDS ORDERED: LEVOTHYROXINE NA 100 MCG TABLET (FP) ONE (03:33)
[2017-09-03] MEDS: CYCLOBENZAPRINE HCL 5 MG TABLET PO SCH ×3 (07:03→21:46)
[2017-09-03] MEDS: LEVOTHYROXINE 25 MCG, LEVOTHYROXINE 100 MCG PO SCH (07:03)
[2017-09-03] MEDS: PRENATAL VITAMINS W/ FOLIC ACID TABLET (FP) PO SCH (10:58)
[2017-09-03] MEDS: amLODIPine BESYLATE 10 MG TABLET (FP) PO SCH (10:58)
[2017-09-03] MEDS: cloNIDine HCL 0.1 MG TABLET PO SCH ×2 (10:58→21:46)
[2017-09-03] MEDS: LISINOPRIL 20 MG TABLET (FP) PO SCH ×2 (10:58→21:46)
[2017-09-03] MEDS: BUPRENORPHINE/NALOXONE 8 MG/2 MG FILM PACKET SL SCH ×2 (10:58→22:20)
[2017-09-03] MEDS: THIAMINE HCL 100 MG TABLET (FP) PO SCH (21:46)
[2017-09-03] MEDS: diphenhydrAMINE HCL 50 MG CAPSULE PO PRN (21:47)
[2017-09-04] MEDS ORDERED: LEVOTHYROXINE NA 100 MCG TABLET (FP) ONE (03:21)
[2017-09-04] MEDS ORDERED: LEVOTHYROXINE NA 25 MCG TABLET (FP) ONE (03:21)
[2017-09-04] MEDS: CYCLOBENZAPRINE HCL 5 MG TABLET PO SCH (06:21)
[2017-09-04] MEDS: LEVOTHYROXINE 25 MCG, LEVOTHYROXINE 100 MCG PO SCH (06:21)
[2017-09-04] MEDS: cloNIDine HCL 0.1 MG TABLET PO SCH (09:47)
[2017-09-04] MEDS: LISINOPRIL 20 MG TABLET (FP) PO SCH (10:50)
[2017-09-04] MEDS: amLODIPine BESYLATE 10 MG TABLET (FP) PO SCH (10:50)
[2017-09-04] MEDS: PRENATAL VITAMINS W/ FOLIC ACID TABLET (FP) PO SCH (10:50)
[2017-09-04] MEDS: BUPRENORPHINE/NALOXONE 8 MG/2 MG FILM PACKET SL SCH ×2 (10:50→21:40)
[2017-09-04] MEDS: diphenhydrAMINE HCL 50 MG CAPSULE PO PRN (21:40)
[2017-09-04] MEDS: THIAMINE HCL 100 MG TABLET (FP) PO SCH (21:40)
[2017-09-05] MEDS ORDERED: LEVOTHYROXINE NA 25 MCG TABLET (FP) ONE (03:22)
[2017-09-05] MEDS ORDERED: LEVOTHYROXINE NA 100 MCG TABLET (FP) ONE (03:22)
[2017-09-05] MEDS: LEVOTHYROXINE 25 MCG, LEVOTHYROXINE 100 MCG PO SCH (06:20)
[2017-09-05] MEDS: PRENATAL VITAMINS W/ FOLIC ACID TABLET (FP) PO SCH (10:50)
[2017-09-05] MEDS: LISINOPRIL 20 MG TABLET (FP) PO SCH (10:50)
[2017-09-05] MEDS: BUPRENORPHINE/NALOXONE 8 MG/2 MG FILM PACKET SL SCH ×2 (10:50→21:51)
[2017-09-05] MEDS: amLODIPine BESYLATE 10 MG TABLET (FP) PO SCH (10:50)
[2017-09-05] MEDS: DULoxetine HCL 30 MG CAPSULE.DR (FP) PO SCH (17:20)
[2017-09-05] MEDS: THIAMINE HCL 100 MG TABLET (FP) PO SCH (21:51)
[2017-09-05] MEDS: QUEtiapine FUMARATE 50 MG TABLET PO SCH (21:51)
[2017-09-05] MEDS: diphenhydrAMINE HCL 50 MG CAPSULE PO PRN (21:52)
[2017-09-06] MEDS ORDERED: LEVOTHYROXINE NA 25 MCG TABLET (FP) ONE (03:06)
[2017-09-06] MEDS ORDERED: LEVOTHYROXINE NA 100 MCG TABLET (FP) ONE (03:06)
[2017-09-06] MEDS: LEVOTHYROXINE 25 MCG, LEVOTHYROXINE 100 MCG PO SCH (06:41)
[2017-09-06] MEDS ORDERED: PT OWN MED DRAWER 7, Y5N ONE (09:04)
[2017-09-06] MEDS: PRENATAL VITAMINS W/ FOLIC ACID TABLET (FP) PO SCH (10:36)
[2017-09-06] MEDS: amLODIPine BESYLATE 10 MG TABLET (FP) PO SCH (10:36)
[2017-09-06] MEDS: DULoxetine HCL 30 MG CAPSULE.DR (FP) PO SCH (10:36)
[2017-09-06] MEDS: BUPRENORPHINE/NALOXONE 8 MG/2 MG FILM PACKET SL SCH ×2 (10:36→21:53)
[2017-09-06] MEDS: LISINOPRIL 20 MG TABLET (FP) PO SCH (10:36)
[2017-09-06] MEDS: THIAMINE HCL 100 MG TABLET (FP) PO SCH (21:52)
[2017-09-06] MEDS: QUEtiapine FUMARATE 50 MG TABLET PO SCH (21:52)
[2017-09-06] MEDS: diphenhydrAMINE HCL 50 MG CAPSULE PO PRN (21:53)
[2017-09-07] MEDS ORDERED: LEVOTHYROXINE NA 100 MCG TABLET (FP) ONE (05:42)
[2017-09-07] MEDS ORDERED: LEVOTHYROXINE NA 25 MCG TABLET (FP) ONE (05:43)
[2017-09-07] MEDS: LEVOTHYROXINE 25 MCG, LEVOTHYROXINE 100 MCG PO SCH (06:33)
[2017-09-07] MEDS ORDERED: PT OWN MED DRAWER 7, Y5N ONE (09:27)
[2017-09-07] MEDS: DULoxetine HCL 30 MG CAPSULE.DR (FP) PO SCH (10:46)
[2017-09-07] MEDS: LISINOPRIL 20 MG TABLET (FP) PO SCH (10:46)
[2017-09-07] MEDS: amLODIPine BESYLATE 10 MG TABLET (FP) PO SCH (10:46)
[2017-09-07] MEDS: PRENATAL VITAMINS W/ FOLIC ACID TABLET (FP) PO SCH (10:46)
[2017-09-07] MEDS: BUPRENORPHINE/NALOXONE 8 MG/2 MG FILM PACKET SL SCH ×2 (10:47→22:03)
[2017-09-07] MEDS: QUEtiapine FUMARATE 50 MG TABLET PO SCH (22:03)
[2017-09-07] MEDS: THIAMINE HCL 100 MG TABLET (FP) PO SCH (22:03)
[2017-09-08] MEDS ORDERED: LEVOTHYROXINE NA 100 MCG TABLET (FP) ONE (06:03)
[2017-09-08] MEDS ORDERED: LEVOTHYROXINE NA 25 MCG TABLET (FP) ONE (06:03)
[2017-09-08] MEDS: LEVOTHYROXINE 25 MCG, LEVOTHYROXINE 100 MCG PO SCH (07:05)
[2017-09-08] MEDS: LISINOPRIL 20 MG TABLET (FP) PO SCH (10:35)
[2017-09-08] MEDS: amLODIPine BESYLATE 10 MG TABLET (FP) PO SCH (10:35)
[2017-09-08] MEDS: PRENATAL VITAMINS W/ FOLIC ACID TABLET (FP) PO SCH (10:35)
[2017-09-08] MEDS: BUPRENORPHINE/NALOXONE 8 MG/2 MG FILM PACKET SL SCH ×2 (10:35→21:51)
[2017-09-08] MEDS: QUEtiapine FUMARATE 50 MG TABLET PO SCH (21:51)
[2017-09-08] MEDS: THIAMINE HCL 100 MG TABLET (FP) PO SCH (21:51)
[2017-09-09] MEDS ORDERED: LEVOTHYROXINE NA 25 MCG TABLET (FP) ONE (05:43)
[2017-09-09] MEDS ORDERED: LEVOTHYROXINE NA 100 MCG TABLET (FP) ONE (05:43)
[2017-09-09] MEDS: LEVOTHYROXINE 25 MCG, LEVOTHYROXINE 100 MCG PO SCH (06:39)
[2017-09-09] MEDS: BUPRENORPHINE/NALOXONE 8 MG/2 MG FILM PACKET SL SCH ×2 (10:12→21:42)
[2017-09-09] MEDS: LISINOPRIL 20 MG TABLET (FP) PO SCH (10:13)
[2017-09-09] MEDS: amLODIPine BESYLATE 10 MG TABLET (FP) PO SCH (10:13)
[2017-09-09] MEDS: PRENATAL VITAMINS W/ FOLIC ACID TABLET (FP) PO SCH (10:13)
[2017-09-09] MEDS: THIAMINE HCL 100 MG TABLET (FP) PO SCH (21:41)
[2017-09-09] MEDS: QUEtiapine FUMARATE 50 MG TABLET PO SCH (21:41)
[2017-09-10] MEDS ORDERED: LEVOTHYROXINE NA 100 MCG TABLET (FP) ONE (06:19)
[2017-09-10] MEDS ORDERED: LEVOTHYROXINE NA 25 MCG TABLET (FP) ONE (06:19)
[2017-09-10] MEDS: LEVOTHYROXINE 25 MCG, LEVOTHYROXINE 100 MCG PO SCH (06:54)
[2017-09-10 07:37] VITALS: TEMP 98.2
--- NOTE | 2017-09-10 09:00 | PN ---
Psychiatric Progress Note Vital Signs: Vital Signs Period Temp Pulse Resp BP Sys/Gomez Pulse Ox Last 24 Hr 98.2 F 77-92 18-18 116-142/79-85 Date of Session: 09/10/17 Chief Complaint:: Discharge visit HPI: Patient addressed Opioid dependence comorbid with Bipolar disorder. ROS: Anemia,COPD,BA,HTN,Hep C. Current Medications: Active Medications Generic Name Dose Route Start Last Admin Trade Name Freq PRN Reason Stop Dose Admin Acetaminophen 650 mg 08/27/17 14:16 Tylenol - PO Q4H PRN PAIN Al Hydroxide/Mg Hydroxide 30 ml 08/27/17 14:16 08/30/17 21:06 Mylanta Oral Suspension - PO 30 ml Q6H PRN Administration DYSPEPSIA Albuterol Sulfate 2 puff 08/27/17 14:19 Ventolin Hfa Inhaler - IH Q4H PRN WHEEZING Amlodipine Besylate 10 mg 08/29/17 15:45 09/09/17 10:13 Norvasc - PO 10 mg DAILY DEBRA Administration Buprenorphine/Naloxone 1 each 09/03/17 22:00 09/09/17 21:42 Suboxone 8mg/2mg Sl Film - SL 1 each BID DEBRA Administration Colloidal Oatmeal 1 applic 08/31/17 08:45 08/31/17 10:01 Aveeno Soap - TP 1 applic DAILY PRN Administration HYGEINE Diphenhydramine HCl 50 mg 08/27/17 14:16 09/06/17 21:53 Benadryl - PO 50 mg HSMR1 PRN Administration INSOMNIA Eucalyptus/Menthol/Phenol/Sorbitol 1 each 08/27/17 14:16 Cepastat Lozenge - MM Q4H PRN SORE THROAT Guaifenesin 10 ml 08/27/17 14:16 Robitussin Dm - PO Q6H PRN COUGH Hydroxyzine Pamoate 50 mg 08/27/17 14:16 09/01/17 23:42 Vistaril - PO 50 mg Q4H PRN Administration AGITATION Levothyroxine Sodium 25 mcg/ 125 mcg 08/28/17 07:00 09/10/17 06:54 Levothyroxine Sodium 100 mcg PO 125 mcg DAILY@0700 DEBRA Administration Lisinopril 20 mg 09/05/17 10:00 09/09/17 10:13 Prinivil PO 20 mg DAILY DEBRA Administration Loperamide HCl 4 mg 08/27/17 14:16 Imodium - PO Q6H PRN DIARRHEA Magnesium Citrate 300 ml 08/27/17 14:16 Citroma - PO Q48H PRN CONSTIPATION Magnesium Hydroxide 30 ml 08/27/17 14:16 Milk Of Magnesia - PO DAILY PRN CONSTIPATION Nicotine Polacrilex 2 mg 08/27/17 14:16 Nicorette Gum - BC Q2H PRN NICOTINE REPLACEMENT RX Ondansetron HCl 8 mg 08/28/17 14:09 08/30/17 22:22 Zofran Odt - SL 8 mg Q6H PRN Administration NAUSEA AND/OR VOMITING Multivit/Folic Acid/Iron 1 tab 08/28/17 10:00 09/09/17 10:13 Vitamins (Sjr) - PO 1 tab DAILY DEBRA Administration Quetiapine Fumarate 50 mg 09/05/17 22:00 09/09/17 21:41 Seroquel - PO 50 mg HS DEBRA Administration Thiamine HCl 100 mg 08/27/17 22:00 09/09/17 21:41 Vitamin B1 - PO 100 mg HS DEBRA Administration Current Side Effect: No Lab tests ordered: No Lab tests reviewed: Yes Provider note:: Patient completed this program today.she has met her treatment goals and will contineu to addres her issues on outpatient basisd at [facility].Patient reports found that Seroquel 50 mg po hs helps to cope with her sleeping difficulties and Mood instability.Script for 30 days supply provided. Patient identifies areas of difficulties,behaviors which contribue to relapse and coping skills,support she ca utilize to maintain recovery. Patient is stable for discharge today. Total face to face time:: 30 Mental Status Exam - Mental Status Exam Alert and Oriented to: Time, Place, Person Cognitive Function: Grossly Intact Patient Appearance: Well Groomed Mood: Hopeful, Euthymic Affect: Appropriate, Mood Congruent Patient Behavior: Cooperative Speech Pattern: Clear Voice Loudness: Normal Thought Process: Goal Oriented Thought Disorder: Not Present Hallucinations: Denies Suicidal Ideation: Denies Homicidal Ideation: Denies Insight/Judgement: Fair Sleep: Fair Appetite: Good Muscle strength/Tone: Normal Gait/Station: Normal Psychiatric Treatment Plan - Problem List (1) Anemia Current Visit: Yes (2) Hepatitis C Current Visit: Yes (3) Opioid dependence Current Visit: Yes (4) Asthma Current Visit: Yes Qualifiers: Asthma severity: mild persistent Asthma complication type: with status asthmaticus (5) Bipolar II disorder Current Visit: No (6) COPD (chronic obstructive pulmonary disease) Current Visit: Yes Qualifiers: Chronic bronchitis type: unspecified (7) GERD (gastroesophageal reflux disease) Current Visit: No Qualifiers: Esophagitis presence: without esophagitis Qualified Code(s): K21.9 - Gastro-esophageal reflux disease without esophagitis; K21.9 - Gastro-esophageal reflux disease without esophagitis; K21.9 - Gastro-esophageal reflux disease without esophagitis (8) Hepatitis C antibody test positive Current Visit: Yes (9) Hypertension Current Visit: Yes Qualifiers: Hypertension type: essential hypertension Qualified Code(s): I10 - Essential (primary) hypertension; I10 - Essential (primary) hypertension; I10 - Essential (primary) hypertension
[2017-09-10 09:27] VITALS: BP 123/81; PULSE 91
[2017-09-10] MEDS: BUPRENORPHINE/NALOXONE 8 MG/2 MG FILM PACKET SL SCH (09:28)
[2017-09-10] MEDS: PRENATAL VITAMINS W/ FOLIC ACID TABLET (FP) PO SCH (09:28)
[2017-09-10] MEDS: LISINOPRIL 20 MG TABLET (FP) PO SCH (09:28)
[2017-09-10] MEDS: amLODIPine BESYLATE 10 MG TABLET (FP) PO SCH (09:28)
== END 2017-09-10 10:21 | disposition home or self-care (01) | DRG 772 ==
LOC: YASAS 10:37 → UNDOADMIN 15:19 → Y6N 15:19 → Y3W 16:50 → Y3E 18:01
PROVIDERS: ADMIT Psychiatry & Neurology Psychiatry; ATTEND Psychiatry & Neurology Psychiatry
PROC: HZ42ZZZ Group Counseling for Substance Abuse Treatment, Cognitive-Behavioral (ICD-10-PCS; principal; 2017-08-27)
DX: F11.20 Opioid dependence, uncomplicated (principal); F17.210 Nicotine dependence, cigarettes, uncomplicated; F31.81 Bipolar II disorder; I10 Essential (primary) hypertension; B18.2 Chronic viral hepatitis C; J45.30 Mild persistent asthma, uncomplicated; J44.9 Chronic obstructive pulmonary disease, unspecified; K21.9 Gastro-esophageal reflux disease without esophagitis; E03.9 Hypothyroidism, unspecified; Z91.5 Personal history of self-harm
CPT/HCPCS: 36415; 80053; 81003; 81015; 85027; 86593; 93005; 93010

== ENCOUNTER 2017-11-01 12:29 | Inpatient (IN) | payer OTHER ==
[2017-11-01 12:33] VITALS: BMI 26.5
--- NOTE | 2017-11-01 14:47 | HP ---
COWS - Scale Resting Pulse: 0= [place] 80 or Below Sweatin= No chills or Flushing Restless Observation: 1= Difficult to Sit Still Pupil Size: 1= Pupils >than Normal Bone or Joint Aches: 4=Acute Joint/Muscle Pain Runny Nose/ Eye Tearin= Nasal Congestion GI Upset > 30mins: 0= None Tremor Observation: 2= Slight Tremor Visible Anxiety or Irritability: 4=Extreme Anxiety Goose Flesh Skin: 3=Piloerection Admission [facility] Chief Complaint: Heroin withdrawal symptoms Allergies/Adverse Reactions: Allergies Allergy/AdvReac Type Severity Reaction Status Date / Time No Known Allergies Allergy Verified 11/01/17 14:21 History of Present Illness: 57 years olsd female with a long history of heroin dependence is admitted to detox. Patient has been in previous detox and reports 5 years of sobriety. She has medical history of hypothyroidism, HTN, COPD, asthma, GERD, Hep. C and depression. Reports history of suicide attempt in 1996 and 1997. Denies suicidal ideation at this time. Patient states that she was on suboxone but relapsed last month and started using heroin. Exam Limitations: No Limitations - Ebola screening Have you traveled outside of the country in the last 21 days: No Have you had contact with anyone from an Ebola affected area: No Have you been sick,other than usual withdrawal symptoms: No Do you have a fever: No - Review of Systems Constitutional: Chills, Loss of Appetite, Night Sweats, Changes in sleep EENT: reports: Blurred Vision (uses gasses), Nose Congestion, Sinus Pressure Respiratory: reports: Cough (Whitish phlegm (h/o COPD)), Shortness of Breath (H/ o asthma) Cardiac: reports: No Symptoms Reported GI: reports: Constipated (LBM 10/31/2017- minimal output), Poor Appetite, Poor Fluid Intake : reports: No Symptoms Reported Musculoskeletal: reports: Back Pain, Muscle Pain, Muscle Weakness Integumentary: reports: Bruising (left hand), Flushing Neuro: reports: Tingling, Tremors Endocrine: reports: Increased Urine Hematology: reports: No Symptoms Reported Psychiatric: reports: Orientated x3, Agitated, Anxious, Depressed Other Systems: Reviewed and Negative Patient History - Patient Medical History Hx Anemia: Yes (was given iron pills) Hx Asthma: Yes (Pt is on MDI.) Hx Chronic Obstructive Pulmonary Disease (COPD): Yes Hx Cancer: No Hx Cardiac Disorders: No Hx Congestive Heart Failure: No Hx Hypertension: Yes (on meds.) Hx Hypercholesterolemia: No Hx Pacemaker: No HX Cerebrovascular Accident: No Hx Seizures: No Hx Dementia: No Hx Diabetes: No Hx Gastrointestinal Disorders: Yes (Hx of acid reflux.) Hx Liver Disease: No Hx Genitourinary Disorders: No Hx Sexually Transmitted Disorders: No Hx Renal Disease (ESRD): No Hx Thyroid Disease: Yes (HYPOTHYROIDISM -ON SYNTHROID) Hx Human Immunodeficiency Virus (HIV): No (NEGATIVE HX, LAST 03/09/2017) Hx Hepatitis C: Yes (treated with SVR 2 years ago) Hx Depression: Yes Hx Suicide Attempt: Yes (Tried tp overdose 20 yrs ago. Attempts in 1996 & 1997) Hx Bipolar Disorder: Yes Hx Schizophrenia: No - Patient Surgical History Past Surgical History: Yes Hx Neurologic Surgery: No Hx Cataract Extraction: No Hx Cardiac Surgery: No Hx Lung Surgery: No Hx Breast Surgery: No Hx Breast Biopsy: No Hx Abdominal Surgery: No Hx Appendectomy: Yes (7 or 8 yo) Hx Cholecystectomy: No Hx Genitourinary Surgery: No Hx Section: No Hx Orthopedic Surgery: No Hx Hysterectomy: No Anesthesia Reaction: No - PPD History Previous Implant?: Yes Documented Results: Negative w/proof Implanted On Prior [facility] Admission?: Yes Date: 05/12/17 Results: 0 MM PPD to be Administered?: No - Reproductive History Patient is a Female of Child Bearing Age (11 -55 yrs old): Yes Last Menstrual Period: 12/30/11 (On menopause) Patient : No - Smoking Cessation Smoking history: Current every day smoker Have you smoked in the past 12 months: Yes Aproximately how many cigarettes per day: 4 Cigars Per Day: 0 Hx Chewing Tobacco Use: No Initiated information on smoking cessation: Yes 'Breaking Loose' booklet given: 11/01/17 - Substance & Tx. History Hx Alcohol Use: No Hx Substance Use: Yes Substance Use Type: Heroin Hx Substance Use Treatment: Yes ([facility]) - Substances Abused Heroin Route: Injection Frequency: Daily Amount used: 3 BAGS Age of first use: 38 Date of Last Use: 11/01/17 Family Disease History - Family Disease History Family Disease History: Diabetes: Father (), Mother (depression;HTN, ), Sister (depression; liver and kidney problems), Heart Disease: Mother , Sister, Other: Father, Mother, Sister Admission Physical Exam BHS - Vital Signs Vital Signs: Vital Signs - 24 hr 11/01/17 12:30 Temperature 96.2 F L Pulse Rate 71 Respiratory 20 Rate Blood Pressure 149/89 - Physical General Appearance: Yes: Moderate Distress, Tremorous, Irritable, Sweating, Anxious HEENTM: Yes: EOMI, Normal Voice, MAI Respiratory: Yes: Lungs Clear, Respiratory Distress, Wheezing (used own albuterol inhaler with relief verbalized) Neck: Yes: No masses,lesions,Nodules, Supple, Trachea in good position Breast: Yes: Breast Exam Deferred Cardiology: Yes: Regular Rhythm, Regular Rate, S1, S2 Abdominal: Yes: Normal Bowel Sounds, Non Tender, Soft Genitourinary: Yes: Within Normal Limits Back: Yes: Within Normal Limits Musculoskeletal: Yes: Back pain, Muscle Pain, Muscle weakness Extremities: Yes: Tremors Neurological: Yes: Alert, Normal Mood/Affect, Normal Response Integumentary: Yes: Dry, Track Gavin (left hand) Lymphatic: Yes: Within Normal Limits - Diagnostic (1) Anxiety Current Visit: No Status: Chronic (2) Constipation Current Visit: No Status: Chronic Qualifiers: Constipation type: slow transit constipation Qualified Code(s): K59.01 - Slow transit constipation (3) Asthma Current Visit: No Status: Chronic Qualifiers: Asthma severity: mild persistent Asthma complication type: with status asthmaticus (4) COPD (chronic obstructive pulmonary disease) Current Visit: No Status: Chronic Qualifiers: Chronic bronchitis type: unspecified (5) GERD (gastroesophageal reflux disease) Current Visit: No Status: Chronic Qualifiers: Esophagitis presence: without esophagitis Qualified Code(s): K21.9 - Gastro -esophageal reflux disease without esophagitis (6) Hypertension Current Visit: No Status: Chronic Qualifiers: Hypertension type: essential hypertension Qualified Code(s): I10 - Essential (primary) hypertension (7) Hypothyroidism Current Visit: No Status: Chronic Qualifiers: Hypothyroidism type: unspecified Qualified Code(s): E03.9 - Hypothyroidism , unspecified (8) Opioid dependence with withdrawal Current Visit: No Status: Chronic (9) Depression Current Visit: No Status: Suspected Qualifiers: Depression Type: dysthymia Qualified Code(s): F34.1 - Dysthymic disorder (10) Hepatitis C antibody test positive Current Visit: Yes Status: Resolved BHS Breath Alcohol Content Breath Alcohol Content: 0 Urine Pregancy Test - Result Urine Test Results: Negative- NO Line Present Urine Drug Screen - Results Drug Screen Negative: No Urine Drug Screen Results: OPI-Opiates, BZO-Benzodiazepines
[2017-11-01] MEDS ORDERED: IBUPROFEN 400 MG TABLET (FP) PO PRN (15:04)
[2017-11-01] MEDS ORDERED: ACETAMINOPHEN 325 MG TABLET (FP) PO PRN (15:04)
[2017-11-01] MEDS ORDERED: MENTHOL/PHENOL 1 EACH UD MM PRN (15:04)
[2017-11-01] MEDS ORDERED: LOPERAMIDE HCL 2 MG CAPSULE PO PRN (15:04)
[2017-11-01] MEDS ORDERED: NICOTINE POLACRILEX 2 MG GUM BUC PRN (15:04)
[2017-11-01] MEDS ORDERED: MAGNESIUM CITRATE 300 ML BOTTLE PO PRN (15:04)
[2017-11-01] MEDS ORDERED: MAG HYDROX/AL HYDROX/SIMETH 30 ML UNIT-DOSE CUP PO PRN (15:04)
[2017-11-01] MEDS ORDERED: MAGNESIUM HYDROX 2400MG/30ML ORAL SUSPENSION 30 ML CUP PO PRN (15:04)
[2017-11-01] MEDS ORDERED: P-EPHED 60MG/TRIPROLIDI 2.5MG TABLET PO PRN (15:04)
[2017-11-01] MEDS ORDERED: ALBUTEROL SO4 18 GM HFA INHALER IH PRN (15:07)
[2017-11-01] MEDS ORDERED: METHADONE HCL 10 MG TABLET (FOR DETOX USE ONLY) PO ONE ×2 (15:45→23:00)
[2017-11-01] MEDS: diazePAM 5 MG TABLET PO PRN ×2 (16:15→22:38)
[2017-11-01 16:42] LABS: URINE APPEARANCE CLOUDY; URINE BILIRUBIN NEGATIVE (NEGATIVE); URINE BLOOD 1+ (NEGATIVE); URINE COLOR AMBER; URINE GLUCOSE (UA) NEGATIVE (NEGATIVE); URINE KETONE NEGATIVE (NEGATIVE); URINE NITRITE NEGATIVE (NEGATIVE); URINE PROTEIN NEGATIVE (NEGATIVE); URINE UROBILINOGEN NEGATIVE mg/dL (0.2-1.0)
[2017-11-01 16:45] LABS: URINE LEUK ESTERASE 3+ (NEGATIVE)
[2017-11-01 17:23] LABS: URINE MUCUS MANY; URINE RBC 21 /hpf (0-3); URINE WBC 121 /hpf (3-5)
[2017-11-01 19:33] LABS: URINE LEUK ESTERASE 3+ (NEGATIVE)
[2017-11-01] MEDS: THIAMINE HCL 100 MG TABLET (FP) PO SCH (22:39)
[2017-11-01] MEDS: lamoTRIgine 25 MG TABLET PO SCH (22:39)
[2017-11-01] MEDS: ALBUTEROL SO4 2.5/IPRATROPIUM 0.5 INH SOL 3 ML VIAL.NEB. NEB PRN (23:06)
[2017-11-02] MEDS: ALBUTEROL SO4 2.5/IPRATROPIUM 0.5 INH SOL 3 ML VIAL.NEB. NEB PRN (04:27)
[2017-11-02] MEDS: diazePAM 5 MG TABLET PO PRN ×3 (05:43→22:29)
[2017-11-02] MEDS ORDERED: LEVOTHYROXINE NA 25 MCG TABLET (FP) ONE (05:43)
[2017-11-02] MEDS ORDERED: LEVOTHYROXINE NA 100 MCG TABLET (FP) ONE (05:43)
[2017-11-02] MEDS ORDERED: COLLOIDAL OATMEAL 1 BAR EACH TP PRN (06:15)
[2017-11-02] MEDS: LEVOTHYROXINE 100 MCG, LEVOTHYROXINE 25 MCG PO SCH (07:58)
[2017-11-02] MEDS ORDERED: LEVOTHYROXINE NA 25 MCG TABLET (FP) PO SCH (10:00)
[2017-11-02] MEDS ORDERED: METHADONE HCL 10 MG TABLET (FOR DETOX USE ONLY) PO ONE (10:00)
[2017-11-02] MEDS: lamoTRIgine 25 MG TABLET PO SCH ×2 (10:44→22:30)
[2017-11-02] MEDS: PRENATAL VITAMINS W/ FOLIC ACID TABLET (FP) PO SCH (10:44)
[2017-11-02] MEDS: LISINOPRIL 20 MG TABLET (FP) PO SCH (10:44)
--- NOTE | 2017-11-02 10:50 | EKG ---
Test Reason : Blood Pressure : / mmHG Vent. Rate : 064 BPM Atrial Rate : 064 BPM P-R Int : 132 ms QRS Dur : 086 ms QT Int : 410 ms P-R-T Axes : 051 027 047 degrees QTc Int : 422 ms NORMAL SINUS RHYTHM NORMAL ECG WHEN COMPARED WITH ECG OF 27-AUG-2017 22:01, NO SIGNIFICANT CHANGE WAS FOUND Confirmed by MD LEATHA, DAMIAN ([id number]) on 11/02/2017 10:50:27 AM Referred By: Confirmed By:DAMIAN ZHANG MD
[2017-11-02 11:06] LABS: MCH 28.1 pg (25.7-33.7); MCHC 32.6 g/dl (32.0-36.0); MEAN CELL VOLUME 86.2 fl (80-96); MEAN PLT VOLUME 9.5 fl (7.5-11.1); PLATELET COUNT 237 K/MM3 (134-434); WHITE BLOOD COUNT 9.7 K/mm3 (4.0-10.0)
[2017-11-02 11:13] LABS: ALBUMIN 4.1 g/dl (3.4-5.0); CALCIUM 9.6 mg/dL (8.5-10.1)
--- NOTE | 2017-11-02 11:17 | PN ---
BHS COWS - Scale Resting Pulse: 0= [place] 80 or Below Sweatin=Flushed/Facial Moisture Restless Observation: 1= Difficult to Sit Still Pupil Size: 0= Normal to Room Light Bone or Joint Aches: 2= Severe Diffuse Aches Runny Nose/ Eye Tearin= Runny Nose/Eyes GI Upset > 30mins: 1= Stomach Cramp Tremor Observation of Outstretched Hands: 2= Slight Tremor Visible Yawning Observation: 2= >3x During Session Anxiety or Irritability: 2=Irritable/Anxious Goose Flesh Skin: 0=Smooth Skin COWS Score: 14 BHS Progress Note (SOAP) Subjective: irritable agitation anxiety sweats interrupted sleep body aches Objective: 11/02/17 11:15 Vital Signs Temperature 97.5 F L 11/02/17 10:00 Pulse Rate 63 11/02/17 10:00 Respiratory Rate 18 11/02/17 10:00 Blood Pressure 163/97 11/02/17 10:00 O2 Sat by Pulse Oximetry (%) Laboratory Tests 11/01/17 11/02/17 15:40 06:00 Sodium 142 Potassium 4.3 Chloride 102 Calcium 9.6 Albumin 4.1 Urine Color [place] Urine Appearance Cloudy Urine pH 5.0 Ur Specific [place] 1.019 Urine Protein Negative Urine Glucose (UA) Negative Urine Ketones Negative Urine Blood 1+ H Urine Nitrite Negative Urine Bilirubin Negative Urine Urobilinogen Negative Ur Leukocyte Esterase 3+ H Urine WBC (Auto) 121 Urine RBC (Auto) 21 Ur Epithelial Cells Rare Urine Mucus Many rest of labs pending repeat u/a aaox3 ambulating no acute distress Assessment: 11/02/17 11:16 withdrawal sx Plan: continue detox increase fluids f/u pending labs
[2017-11-02 11:19] LABS: ALK PHOS 74 U/L (45-117); ANION GAP 8 (8-16); BILIRUBIN,TOTAL 0.4 mg/dL (0.2-1.0); CO2 32 mmol/L (21-32); GLUCOSE,RANDOM 89 mg/dL (74-106); SGOT/AST 19 U/L (15-37); SGPT/ALT 17 U/L (12-78); TOT PROT 7.7 g/dl (6.4-8.2)
[2017-11-02] MEDS ORDERED: cloNIDine HCL 0.1 MG TABLET PO ONE (12:27)
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
[2017-11-02] MEDS: guaiFENesin/D-METHORPHAN HB 10 ML UNIT-DOSE CUPS PO PRN (19:37)
[2017-11-02] MEDS: THIAMINE HCL 100 MG TABLET (FP) PO SCH (22:29)
[2017-11-02] MEDS: cloNIDine HCL 0.1 MG TABLET PO SCH (22:30)
[2017-11-02] MEDS: QUEtiapine FUMARATE 50 MG TABLET PO SCH (22:30)
[2017-11-03] MEDS ORDERED: hydrOXYzine PAMOATE 50 MG CAPSULE (FP) PO PRN (01:28)
[2017-11-03] MEDS: diazePAM 5 MG TABLET PO PRN ×4 (02:38→23:00)
[2017-11-03] MEDS: LEVOTHYROXINE 100 MCG, LEVOTHYROXINE 25 MCG PO SCH (06:12)
[2017-11-03] MEDS ORDERED: LEVOTHYROXINE NA 25 MCG TABLET (FP) ONE (06:12)
[2017-11-03] MEDS ORDERED: LEVOTHYROXINE NA 100 MCG TABLET (FP) ONE (06:12)
[2017-11-03] MEDS: ALBUTEROL SO4 2.5/IPRATROPIUM 0.5 INH SOL 3 ML VIAL.NEB. NEB PRN (07:51)
[2017-11-03] MEDS ORDERED: METHADONE HCL 5 MG TABLET (FOR DETOX USE ONLY) PO ONE (10:00)
[2017-11-03] MEDS: lamoTRIgine 25 MG TABLET PO SCH ×2 (10:29→23:00)
[2017-11-03] MEDS: PRENATAL VITAMINS W/ FOLIC ACID TABLET (FP) PO SCH (10:29)
[2017-11-03] MEDS: LISINOPRIL 20 MG TABLET (FP) PO SCH (10:29)
[2017-11-03] MEDS: cloNIDine HCL 0.1 MG TABLET PO SCH ×2 (10:29→23:00)
--- NOTE | 2017-11-03 13:05 | PN ---
BHS COWS - Scale Resting Pulse: 0= [place] 80 or Below Sweatin=Flushed/Facial Moisture Restless Observation: 1= Difficult to Sit Still Pupil Size: 0= Normal to Room Light Bone or Joint Aches: 2= Severe Diffuse Aches Runny Nose/ Eye Tearin= Runny Nose/Eyes GI Upset > 30mins: 2= Nausea/Diarrhea Tremor Observation of Outstretched Hands: 2= Slight Tremor Visible Yawning Observation: 1= 1-2x During Session Anxiety or Irritability: 2=Irritable/Anxious Goose Flesh Skin: 0=Smooth Skin COWS Score: 14 BHS Progress Note (SOAP) Subjective: Anxiety,tremors,sweating,interrupted sleep,restless Objective: 11/03/17 13:02 Vital Signs - 8 hr 11/03/17 11/03/17 07:24 10:00 Temperature 97.2 F L 98.1 F Pulse Rate 51 L 70 Respiratory 16 16 Rate Blood Pressure 150/78 165/105 Laboratory Tests 11/01/17 11/02/17 11/02/17 15:40 06:00 06:00 WBC 9.7 D RBC 4.47 Hgb 12.5 Hct 38.5 MCV 86.2 MCH 28.1 MCHC 32.6 RDW 15.0 Plt Count 237 D MPV 9.5 Sodium 142 Potassium 4.3 Chloride 102 Carbon Dioxide 32 Anion Gap 8 BUN 11 D Creatinine 1.0 Creat Clearance w eGFR 57.15 Random Glucose 89 D Calcium 9.6 Total Bilirubin 0.4 D AST 19 D ALT 17 D Alkaline Phosphatase 74 D Total Protein 7.7 Albumin 4.1 Urine Color [place] Urine Appearance Cloudy Urine pH 5.0 Ur Specific [place] 1.019 Urine Protein Negative Urine Glucose (UA) Negative Urine Ketones Negative Urine Blood 1+ H Urine Nitrite Negative Urine Bilirubin Negative Urine Urobilinogen Negative Ur Leukocyte Esterase 3+ H Urine WBC (Auto) 121 Urine RBC (Auto) 21 Ur Epithelial Cells Rare Urine Mucus Many RPR Titer 11/02/17 06:00 WBC RBC Hgb Hct MCV MCH MCHC RDW Plt Count MPV Sodium Potassium Chloride Carbon Dioxide Anion Gap BUN Creatinine Creat Clearance w eGFR Random Glucose Calcium Total Bilirubin AST ALT Alkaline Phosphatase Total Protein Albumin Urine Color Urine Appearance Urine pH Ur Specific [place] Urine Protein Urine Glucose (UA) Urine Ketones Urine Blood Urine Nitrite Urine Bilirubin Urine Urobilinogen Ur Leukocyte Esterase Urine WBC (Auto) Urine RBC (Auto) Ur Epithelial Cells Urine Mucus RPR Titer Nonreactive labs noted, repeat u/a Assessment: 11/03/17 13:03 Withdrawal sx. Plan: Continue detox
[2017-11-03] MEDS: QUEtiapine FUMARATE 50 MG TABLET PO SCH (22:59)
[2017-11-03] MEDS: THIAMINE HCL 100 MG TABLET (FP) PO SCH (22:59)
[2017-11-03] MEDS: guaiFENesin/D-METHORPHAN HB 10 ML UNIT-DOSE CUPS PO PRN (23:02)
[2017-11-04 00:09] LABS: URINE APPEARANCE CLEAR; URINE BILIRUBIN NEGATIVE (NEGATIVE); URINE BLOOD NEGATIVE (NEGATIVE); URINE COLOR LTYELLOW; URINE GLUCOSE (UA) NEGATIVE (NEGATIVE); URINE KETONE NEGATIVE (NEGATIVE); URINE LEUK ESTERASE NEGATIVE (NEGATIVE); URINE NITRITE NEGATIVE (NEGATIVE); URINE PROTEIN NEGATIVE (NEGATIVE); URINE UROBILINOGEN NEGATIVE mg/dL (0.2-1.0)
[2017-11-04] MEDS ORDERED: LEVOTHYROXINE NA 25 MCG TABLET (FP) ONE (05:43)
[2017-11-04] MEDS: diazePAM 5 MG TABLET PO PRN ×2 (05:44→10:05)
[2017-11-04] MEDS ORDERED: LEVOTHYROXINE NA 100 MCG TABLET (FP) ONE (05:44)
[2017-11-04] MEDS: LEVOTHYROXINE 100 MCG, LEVOTHYROXINE 25 MCG PO SCH (06:05)
[2017-11-04] MEDS ORDERED: ONDANSETRON *ODT* 4 MG TABLET SL ONE (09:49)
[2017-11-04] MEDS ORDERED: METHADONE HCL 5 MG TABLET (FOR DETOX USE ONLY) PO ONE (10:00)
[2017-11-04] MEDS: lamoTRIgine 25 MG TABLET PO SCH ×2 (10:04→23:20)
[2017-11-04] MEDS: PRENATAL VITAMINS W/ FOLIC ACID TABLET (FP) PO SCH (10:04)
[2017-11-04] MEDS: cloNIDine HCL 0.1 MG TABLET PO SCH (10:04)
[2017-11-04] MEDS: LISINOPRIL 20 MG TABLET (FP) PO SCH (10:05)
--- NOTE | 2017-11-04 10:37 | PN ---
[facility] Progress Note (SOAP) Subjective: sweating bodyache restlessness vomiting Objective: 11/04/17 10:41 Vital Signs Temperature 97.1 F L 11/04/17 06:57 Pulse Rate 70 11/04/17 06:57 Respiratory Rate 18 11/04/17 06:57 Blood Pressure 160/88 11/04/17 06:57 O2 Sat by Pulse Oximetry (%) Laboratory Last Values WBC 9.7 K/mm3 (4.0-10.0) D 11/02/17 06:00 RBC 4.47 M/mm3 (3.60-5.2) 11/02/17 06:00 Hgb 12.5 GM/dL (10.7-15.3) 11/02/17 06:00 Hct 38.5 % (32.4-45.2) 11/02/17 06:00 MCV 86.2 fl (80-96) 11/02/17 06:00 MCH 28.1 pg (25.7-33.7) 11/02/17 06:00 MCHC 32.6 g/dl (32.0-36.0) 11/02/17 06:00 RDW 15.0 % (11.6-15.6) 11/02/17 06:00 Plt Count 237 K/MM3 (134-434) D 11/02/17 06:00 MPV 9.5 fl (7.5-11.1) 11/02/17 06:00 Sodium 142 mmol/L (136-145) 11/02/17 06:00 Potassium 4.3 mmol/L (3.5-5.1) 11/02/17 06:00 Chloride 102 mmol/L (98-107) 11/02/17 06:00 Carbon Dioxide 32 mmol/L (21-32) 11/02/17 06:00 Anion Gap 8 (8-16) 11/02/17 06:00 BUN 11 mg/dL (7-18) D 11/02/17 06:00 Creatinine 1.0 mg/dL (0.55-1.02) 11/02/17 06:00 Creat Clearance w eGFR 57.15 (>60) 11/02/17 06:00 Random Glucose 89 mg/dL (74-106) D 11/02/17 06:00 Calcium 9.6 mg/dL (8.5-10.1) 11/02/17 06:00 Total Bilirubin 0.4 mg/dL (0.2-1.0) D 11/02/17 06:00 AST 19 U/L (15-37) D 11/02/17 06:00 ALT 17 U/L (12-78) D 11/02/17 06:00 Alkaline Phosphatase 74 U/L (45-117) D 11/02/17 06:00 Total Protein 7.7 g/dl (6.4-8.2) 11/02/17 06:00 Albumin 4.1 g/dl (3.4-5.0) 11/02/17 06:00 Urine Color Ltyellow 11/03/17 13:00 Urine Appearance Clear 11/03/17 13:00 Urine pH 8.0 (5.0-8.0) D 11/03/17 13:00 Ur Specific [place] 1.010 (1.001-1.035) 11/03/17 13:00 Urine Protein Negative (NEGATIVE) 11/03/17 13:00 Urine Glucose (UA) Negative (NEGATIVE) 11/03/17 13:00 Urine Ketones Negative (NEGATIVE) 11/03/17 13:00 Urine Blood Negative (NEGATIVE) 11/03/17 13:00 Urine Nitrite Negative (NEGATIVE) 11/03/17 13:00 Urine Bilirubin Negative (NEGATIVE) 11/03/17 13:00 Urine Urobilinogen Negative mg/dL (0.2-1.0) 11/03/17 13:00 Ur Leukocyte Esterase 3+ (NEGATIVE) H 11/01/17 15:40 Urine WBC (Auto) 121 /hpf (3-5) 11/01/17 15:40 Urine RBC (Auto) 21 /hpf (0-3) 11/01/17 15:40 Ur Epithelial Cells Rare /HPF (FEW) 11/01/17 15:40 Urine Mucus Many 11/01/17 15:40 RPR Titer Nonreactive (NONREACTIVE) 11/02/17 06:00 lab noted Assessment: 11/04/17 10:41 withdrawal sx Plan: continue deotx
[2017-11-04] MEDS ORDERED: cloNIDine HCL 0.1 MG TABLET PO ONE (12:57)
[2017-11-04 13:46] LABS: URINE LEUK ESTERASE NEGATIVE (NEGATIVE)
[2017-11-04] MEDS: RANITIDINE HCL 150 MG TABLET (FP) PO SCH ×2 (14:23→23:21)
[2017-11-04 16:02] VITALS: BP 191/101; PULSE 61; TEMP 98
[2017-11-04] MEDS ORDERED: cloNIDine HCL 0.1 MG TABLET PO SCH (22:00)
[2017-11-04] MEDS: THIAMINE HCL 100 MG TABLET (FP) PO SCH (23:21)
[2017-11-04] MEDS: QUEtiapine FUMARATE 50 MG TABLET PO SCH (23:21)
[2017-11-05] MEDS ORDERED: METHADONE HCL 10 MG TABLET (FOR DETOX USE ONLY) PO ONE (10:00)
[2017-11-06] MEDS ORDERED: METHADONE HCL 5 MG TABLET (FOR DETOX USE ONLY) PO ONE (06:00)
== END 2017-11-04 11:00 | disposition short-term general hospital (02) | DRG 775 ==
LOC: YASAS 12:29 → Y6N 15:02
PROVIDERS: ADMIT Internal Medicine; ATTEND Internal Medicine
PROC: HZ2ZZZZ Detoxification Services for Substance Abuse Treatment (ICD-10-PCS; principal; 2017-11-01)
DX: F10.230 Alcohol dependence with withdrawal, uncomplicated (principal); F13.20 Sedative, hypnotic or anxiolytic dependence, uncomplicated; F17.210 Nicotine dependence, cigarettes, uncomplicated; F34.1 Dysthymic disorder; J44.9 Chronic obstructive pulmonary disease, unspecified; J45.22 Mild intermittent asthma with status asthmaticus; I10 Essential (primary) hypertension; E03.9 Hypothyroidism, unspecified; K21.9 Gastro-esophageal reflux disease without esophagitis; B18.2 Chronic viral hepatitis C; Z91.5 Personal history of self-harm
CPT/HCPCS: 36415; 80053; 81003; 81015; 85027; 86593; 93005; 93010; 94640

== ENCOUNTER 2017-11-04 15:57 | Inpatient (IN) | payer OTHER ==
[2017-11-04] MEDS ORDERED: ONDANSETRON 4 MG/2 ML VIAL IVPUSH ONE ×3 (16:32→22:48)
--- NOTE | 2017-11-04 16:32 | PDOC ---
History of Present Illness - General Chief Complaint: Nausea/Vomiting Stated Complaint: VOMITING/HYPERTENSION Time Seen by Provider: 11/04/17 16:18 History Source: Patient - History of Present Illness Initial Comments: 11/04/17 16:40 Patient is a 57 y.o. female with a PMH of HTN and Hypothyroidism who presents from [facility] (in detox for Heroin use, last use Sunday10/31/17) c/o acute onset of abdominal cramping. Patient states the cramping started this morning and is intermittent, epigastric and often associated with clear/yellowish emesis. Patient endorses dyspnea but denies any chest pain, fevers, chills. Past History - Past Medical History Allergies/Adverse Reactions: Allergies Allergy/AdvReac Type Severity Reaction Status Date / Time No Known Allergies Allergy Verified 11/04/17 16:25 Home Medications: Ambulatory Orders Lamotrigine [Lamictal -] 25 mg PO BID #60 tablet 05/23/17 Buprenorphine/Naloxone [Suboxone 8Mg/2Mg Sl Film -] 1 each SL BID 08/27/17 Albuterol Sulfate Inhaler - [Ventolin HFA Inhaler -] 2 inh PO Q4H PRN #1 inh Levothyroxine [Synthroid -] 125 mcg PO DAILY@0700 #30 tablet 09/10/17 Lisinopril [Prinivil] 20 mg PO DAILY #30 tab 09/10/17 Quetiapine Fumarate [Seroquel -] 50 mg PO HS #30 tablet 09/10/17 Anemia: Yes (was given iron pills) Asthma: Yes (Pt is on MDI.) Cancer: No Cardiac Disorders: No CVA: No COPD: Yes CHF: No Dementia: No Diabetes: No GI Disorders: Yes (Hx of acid reflux.) Disorders: No HTN: Yes (on meds.) Hypercholesterolemia: No Kidney Stones: No Liver Disease: No Seizures: No Thyroid Disease: Yes (HYPOTHYROIDISM -ON SYNTHROID) - Surgical History Abdominal Surgery: No Appendectomy: Yes (7 or 8 yo) Cardiac Surgery: No Cholecystectomy: No Lung Surgery: No Neurologic Surgery: No Orthopedic Surgery: No - Reproductive History PID: No - Suicide/Smoking/Psychosocial Hx Smoking History: Current every day smoker Have you smoked in the past 12 months: Yes Number of Cigarettes Smoked Daily: 4 If you are a former smoker, when did you quit?: february 2014 Cigars Per Day: 0 Information on smoking cessation initiated: No 'Breaking Loose' booklet given: 11/01/17 Hx Alcohol Use: No Drug/Substance Use Hx: No Substance Use Type: Heroin Hx Substance Use Treatment: Yes ([facility]) Review of Systems - Review of Systems Constitutional: No: Chills, Fever Respiratory: Yes: Shortness of Breath Cardiac (ROS): No: Chest Pain ABD/GI: Yes: Abdominal cramping. No: Constipated, Diarrhea, Nausea, Vomiting All Other Systems: Reviewed and Negative *Physical Exam - Vital Signs Last Vital Signs Temp Pulse Resp BP Pulse Ox 98.8 F 74 18 190/109 100 11/04/17 16:16 11/04/17 16:16 11/04/17 16:16 11/04/17 16:16 11/04/17 16:16 - Physical Exam General Appearance: Yes: Nourished, Appropriately Dressed HEENT: positive: Other (B/L myadriasis) Neck: positive: Trachea midline, Supple Respiratory/Chest: positive: Lungs Clear, Normal Breath Sounds. negative: Labored Respiration, Rapid RR Cardiovascular: positive: S1, S2. negative: Edema, JVD Gastrointestinal/Abdominal: positive: Normal Bowel Sounds, Soft Integumentary: positive: Other (Left A/C site of last injection - no erythema, non-purulence) Neurologic: positive: Fully Oriented, Alert ED Treatment Course - LABORATORY CBC & Chemistry Diagram: 11/04/17 19:41 11/04/17 19:41 Medical Decision Making - Medical Decision Making 11/04/17 16:47 Patient is a 57 y.o. female who presents with acute onset of abdominal cramping. Cramping possibly 2/2 to withdrawl sequelae (last reported heroin use 11/01). During evaluation patient noted to be hypertensive (190's/100's) also possibly 2/2 to heroin withdrawal. Clonidine (0.2) + Labetalol (5 mg IV) - -> resolved intermittently to systolic 160's --> SBP 190's will try additional 0.1 mg Clonidine. Patient signed out to Dr. Quinn (Resident) with continued care under Dr. Hawk (Attending). *DC/Admit/Observation/Transfer Diagnosis at time of Disposition: Hypertensive urgency - Referrals Referrals: STAFF,NOT ON [Primary Care Provider] - - Patient Instructions - Post Discharge Activity
[2017-11-04] MEDS ORDERED: ONDANSETRON 4 MG/2 ML VIAL ONE ×3 (16:34→22:51)
[2017-11-04] MEDS ORDERED: cloNIDine HCL 0.1 MG TABLET PO ONE ×2 (16:37→18:09)
[2017-11-04] MEDS ORDERED: cloNIDine HCL 0.1 MG TABLET ONE ×2 (16:48→18:49)
[2017-11-04] MEDS ORDERED: ACETAMINOPHEN 500 MG TABLET (FP) PO ONE (16:55)
[2017-11-04] MEDS ORDERED: ACETAMINOPHEN 325 MG TABLET (FP) ONE ×2 (17:01→17:03)
--- NOTE | 2017-11-04 17:04 | PDOC ---
Attending Attestation - Resident Resident Name: Pavan Ayalaica - ED Attending Attestation I have performed the following: I have examined & evaluated the patient, The case was reviewed & discussed with the resident, I agree w/resident's findings & plan, Exceptions are as noted - HPI HPI: 11/04/17 17:17 pt at [facility] for heroin detox and had elevated blood pressure 11/04/17 17:27 - Physicial Exam PE: 11/04/17 17:27 57 yo female has complaint of abd nausea and cramping Head - eyes jeyson ,eomi ,pupils 4mm neck supple abd -no rebound or guarding but has epigastric discomfort lungs scant scattered rhonchi cvs [id number] ext no edema,no erythema neuro axox3,ambulatory skin no cellulitis - Medical Decision Making 11/04/17 17:35 pt has no headache,no fever,no neck pain -pt is written for clonidine but had not received it prior to arrival -plan clonidine ,reassess - 11/04/17 23:24 will admit, pt has persistent and pain, vomiting,uncontrolled high blood pressure ct scan of abd/pel with contrast : -NO free air, no free fluid, no loculated collections -urinary bladder moderately distended -small L ovarian cystic structure -mild thickening of sigmoid colonsuggested which may be inceidentally related to underdistention vs mild colitis -moderate fecal retention -no periceal or rt lower quadrant inflammatory changes
[2017-11-04] MEDS ORDERED: MAG HYDROX/AL HYDROX/SIMETH 30 ML UNIT-DOSE CUP PO ONE (17:17)
[2017-11-04] MEDS ORDERED: hydrALAZINE HCL 25 MG TABLET (FP) PO ONE (17:18)
[2017-11-04] MEDS ORDERED: hydrALAZINE HCL 25 MG TABLET (FP) ONE (17:25)
[2017-11-04] MEDS ORDERED: MAG HYDROX/AL HYDROX/SIMETH 30 ML UNIT-DOSE CUP ONE (17:25)
[2017-11-04] MEDS ORDERED: LABETALOL HCL 5 MG/1 ML (100MG/20 ML VIAL) IVPUSH ONE (17:44)
[2017-11-04] MEDS ORDERED: LABETALOL HCL 5 MG/1 ML (200MG/40ML VIAL) IVPB ONE (17:55)
--- NOTE | 2017-11-04 19:05 | PDOC ---
*Physical Exam - Vital Signs Last Vital Signs Temp Pulse Resp BP Pulse Ox 98.8 F 85 18 165/96 100 11/04/17 16:16 11/04/17 19:02 11/04/17 16:16 11/04/17 19:02 11/04/17 16:16 ED Treatment Course - LABORATORY CBC & Chemistry Diagram: 11/04/17 19:41 11/04/17 19:41 - Medications Given in the ED: ED Medications Discontinued Medications Generic Name Dose Route Start Last Admin Trade Name Magdalena PRN Reason Stop Dose Admin Acetaminophen 1,000 mg 11/04/17 16:55 11/04/17 17:08 Tylenol - PO 11/04/17 16:56 1,000 mg ONCE ONE Administration Al Hydroxide/Mg Hydroxide 30 ml 11/04/17 17:17 11/04/17 17:35 Mylanta Oral Suspension - PO 11/04/17 17:18 30 ml ONCE ONE Administration Clonidine 0.2 mg 11/04/17 16:37 11/04/17 16:51 Catapres - PO 11/04/17 16:38 0.2 mg ONCE ONE Administration Clonidine 0.1 mg 11/04/17 18:09 11/04/17 18:51 Catapres - PO 11/04/17 18:10 0.1 mg ONCE ONE Administration Hydralazine HCl 25 mg 11/04/17 17:18 11/04/17 17:40 Apresoline - PO 11/04/17 17:19 25 mg ONCE ONE Administration Labetalol HCl 5 mg 11/04/17 17:44 11/04/17 18:00 Normodyne Injection - IVPUSH 11/04/17 17:45 5 mg ONCE ONE Administration Ondansetron HCl 4 mg 11/04/17 16:32 11/04/17 16:46 Zofran Injection IVPUSH 11/04/17 16:33 4 mg ONCE ONE Administration Ondansetron HCl 4 mg 11/04/17 17:45 11/04/17 18:00 Zofran Injection IVPUSH 11/04/17 17:46 4 mg ONCE ONE Administration Medical Decision Making - Medical Decision Making 11/04/17 19:04 Care taken over from Dr. Ayala. 11/04/17 21:17 Patient reporting continued stomach pain. IV Pepcid ordered for symptomatic relief and CT Abdomen Pelvis ordered for evaluation. 12/10/17 23:23 CT negative for acute pathology. CXR likewise negative for acute process. Will admit patient for BP and pain control. 11/04/17 23:32 *DC/Admit/Observation/Transfer Diagnosis at time of Disposition: Withdrawal from opioids, Hypertensive urgency Vomiting Qualifiers: Vomiting type: bilious vomiting Nausea presence: with nausea Qualified Code(s) : R11.14 - Bilious vomiting - Discharge Dispostion Admit: Yes - Referrals Referrals: STAFF,NOT ON [Primary Care Provider] - - Patient Instructions - Post Discharge Activity
[2017-11-04] MEDS ORDERED: PROCHLORPERAZINE INJECTION 10 MG/2 ML VIAL IVPB ONE (19:52)
[2017-11-04 19:56] LABS: MCH 28.1 pg (25.7-33.7); MCHC 33.3 g/dl (32.0-36.0); MEAN CELL VOLUME 84.2 fl (80-96); MEAN PLT VOLUME 8.5 fl (7.5-11.1); PLATELET COUNT 285 K/MM3 (134-434); RDW 15.1 % (11.6-15.6); WHITE BLOOD COUNT 15.4 K/mm3 (4.0-10.0)
[2017-11-04 20:39] LABS: TOTAL CELLS COUNTED 100
[2017-11-04 20:40] LABS: PLATELET ESTIMATE ADEQUATE
[2017-11-04] MEDS ORDERED: LORazepam 2 MG/ML SDV VIAL ONE (20:41)
[2017-11-04 20:44] LABS: ALBUMIN 4.2 g/dl (3.4-5.0); ALK PHOS 87 U/L (45-117); ANION GAP 10 (8-16); BILIRUBIN,TOTAL 0.6 mg/dL (0.2-1.0); CALCIUM 9.6 mg/dL (8.5-10.1); CO2 29 mmol/L (21-32); CREATININE 1.2 mg/dL (0.55-1.02); GLUCOSE,RANDOM 132 mg/dL (74-106); SGOT/AST 15 U/L (15-37); SGPT/ALT 18 U/L (12-78); TOT PROT 8.4 g/dl (6.4-8.2)
[2017-11-04] MEDS ORDERED: FAMOTIDINE IV 20 MG/12 ML VIAL IVPUSH ONE ×2 (21:17→23:00)
[2017-11-04] MEDS ORDERED: FAMOTIDINE 20 MG/50 ML IVPB 20 MG/50 ML MG IVPB ONE ×2 (21:24→22:52)
[2017-11-04] MEDS ORDERED: FAMOTIDINE IV 20 MG/12 ML VIAL IVPUSH SCH (22:00)
[2017-11-04] MEDS ORDERED: ACETAMINOPHEN 1000 MG/100 ML VIAL (NON FORMULARY) IVPB ONE (23:24)
[2017-11-04] MEDS ORDERED: SODIUM CHLORIDE 1,000 ML IV STA (23:25)
[2017-11-04] MEDS ORDERED: BUPRENORPHINE/NALOXONE 8 MG/2 MG FILM PACKET SL ONE (23:25)
[2017-11-04] MEDS ORDERED: LABETALOL HCL INJECTION 1,000 MG in DEXTROSE 5%-WATER - 800 ML IV SCH (23:30)
[2017-11-04] MEDS ORDERED: ACETAMINOPHEN INJECTION 100 ML IVPB ONE (23:45)
--- NOTE | 2017-11-05 00:14 | PN ---
Teaching Attending Note Name of Resident: Walker Plasencia ATTENDING PHYSICIAN STATEMENT I saw and evaluated the patient. I reviewed the resident's note and discussed the case with the resident. I agree with the resident's findings and plan as documented. SUBJECTIVE: 57 yo F with pmhx. of hypothyriodism and hx. of herion abuse who presents from [facility] (in Detox for heroin), who presents with abdominal pain and camping. Also with associated vomiting. No chest pain or pressure, currently denies any shortness of breath. States her vomiting has improved. OBJECTIVE: Physical: VS: Vital Signs Period Temp Pulse Resp BP Sys/Gomez Pulse Ox Last 24 Hr 98.8 F-99.8 F 69-86 18-21 103-190/89-109 96-100 GEN: NAD, Resting in bed, AA0X3 HEENT: NCAT, PERRL, Throat without erythema or exudates CARD: RRR S1, S1 RESP:CTAB ABD: BSx4, NTD to palpation EXT: - C/C/E CBCD WBC 15.4 K/mm3 (4.0-10.0) H D 11/04/17 19:41 RBC 4.85 M/mm3 (3.60-5.2) 11/04/17 19:41 Hgb 13.6 GM/dL (10.7-15.3) 11/04/17 19:41 Hct 40.8 % (32.4-45.2) 11/04/17 19:41 MCV 84.2 fl (80-96) 11/04/17 19:41 MCHC 33.3 g/dl (32.0-36.0) 11/04/17 19:41 RDW 15.1 % (11.6-15.6) 11/04/17 19:41 Plt Count 285 K/MM3 (134-434) D 11/04/17 19:41 MPV 8.5 fl (7.5-11.1) D 11/04/17 19:41 CMP Sodium 138 mmol/L (136-145) 11/04/17 19:41 Potassium 3.9 mmol/L (3.5-5.1) 11/04/17 19:41 Chloride 99 mmol/L (98-107) 11/04/17 19:41 Carbon Dioxide 29 mmol/L (21-32) 11/04/17 19:41 Anion Gap 10 (8-16) 11/04/17 19:41 BUN 18 mg/dL (7-18) D 11/04/17 19:41 Creatinine 1.2 mg/dL (0.55-1.02) H 11/04/17 19:41 Creat Clearance w eGFR 46.30 (>60) 11/04/17 19:41 Random Glucose 132 mg/dL (74-106) H D 11/04/17 19:41 Calcium 9.6 mg/dL (8.5-10.1) 11/04/17 19:41 Total Bilirubin 0.6 mg/dL (0.2-1.0) D 11/04/17 19:41 AST 15 U/L (15-37) D 11/04/17 19:41 ALT 18 U/L (12-78) 11/04/17 19:41 Alkaline Phosphatase 87 U/L (45-117) 11/04/17 19:41 Total Protein 8.4 g/dl (6.4-8.2) H 11/04/17 19:41 Albumin 4.2 g/dl (3.4-5.0) 11/04/17 19:41 Home Medications Medication Instructions Recorded Lamotrigine [Lamictal -] 25 mg PO BID #60 tablet 05/23/17 Buprenorphine/Naloxone [Suboxone 1 each SL BID 08/27/17 8Mg/2Mg Sl Film -] Albuterol Sulfate Inhaler - 2 inh PO Q4H PRN #1 inh 09/10/17 [Ventolin HFA Inhaler -] Levothyroxine [Synthroid -] 125 mcg PO DAILY@0700 #30 tablet 09/10/17 Lisinopril [Prinivil] 20 mg PO DAILY #30 tab 09/10/17 Quetiapine Fumarate [Seroquel -] 50 mg PO HS #30 tablet 09/10/17 EKG: NSR Qtc 443 CT ABD/PELVIS- No bowel distension, small L. ovarian cyst structure measuring 1.3 cm (US follow UP) ASSESSMENT AND PLAN: 57 yo F with pmhx. of hypothyriodism and hx. of herion abuse who presents from [facility] (in Detox for heroin), who presents with abdominal pain and camping. 1.) Intractable Nausea and Vomiting - Zofran/Compazine prn - CT abdomen reviewed - Most likely due to withdrawl 2.) Hx. of Hypothyriodism - TSH - C/W Synthriod 3.) L. Ovarian Cyst - US of Ovary 4.) Heroin Withdrawl - Detox underway at [facility] - Suboxone given in ED - Methadone in Am, After confirmation of dose 5.) HTN Urgency - Now controlle - S/P Clonidine in ED - C/W Home meds 6.) ARF - Most likely Pre renal - Gently hydration after BP better controlled - Trend - Avoid Nephrotoxins 6.) Dvt Ppx - Low Risk - Heparin [address] in Obs-Tele
--- NOTE | 2017-11-05 01:19 | HP ---
CHIEF COMPLAINT: Withdrawal PCP: Unknown HISTORY OF PRESENT ILLNESS: 57 y.o. F with pmh of HTN, hypothyroidism, and heroin abuse presenting from [facility] for opioid withdrawal. Patient checked herself into [facility] on wednesday 10/31. Patient began having withdrawal symptoms today and was sent to the ED. Patient endorses nausea and vomiting. Patient denies fever, chills, chest pain, SOB, abdominal pain, diarrhea. Patient is a long time heroin IV user. ER course was notable for: (1) HTN, (2) EKG shows NSR with qtc of 443 (3) CT Abd/Pelvis- small L ovarian cyst 1.3 cm (4) wbc 15.4, Cr-1.2 Recent Travel: denies PAST MEDICAL HISTORY: as per hpi PAST SURGICAL HISTORY: denies Social History: Smoking: Former Alcohol:Denies Drugs: Heroin Family History: Allergies No Known Allergies Allergy (Verified 11/04/17 16:25) HOME MEDICATIONS: Home Medications Medication Instructions Recorded Lamotrigine [Lamictal -] 25 mg PO BID #60 tablet 05/23/17 Buprenorphine/Naloxone [Suboxone 1 each SL BID 08/27/17 8Mg/2Mg Sl Film -] Albuterol Sulfate Inhaler - 2 inh PO Q4H PRN #1 inh 09/10/17 [Ventolin HFA Inhaler -] Levothyroxine [Synthroid -] 125 mcg PO DAILY@0700 #30 tablet 09/10/17 Lisinopril [Prinivil] 20 mg PO DAILY #30 tab 09/10/17 Quetiapine Fumarate [Seroquel -] 50 mg PO HS #30 tablet 09/10/17 REVIEW OF SYSTEMS CONSTITUTIONAL: Absent: fever, chills, diaphoresis, generalized weakness, malaise, loss of appetite, weight change HEENT: Absent: rhinorrhea, nasal congestion, throat pain, throat swelling, difficulty swallowing, mouth swelling, ear pain, eye pain, visual changes CARDIOVASCULAR: Absent: chest pain, syncope, palpitations, irregular heart rate, lightheadedness , peripheral edema RESPIRATORY: Absent: cough, shortness of breath, dyspnea with exertion, orthopnea, wheezing, stridor, hemoptysis GASTROINTESTINAL: Absent: abdominal pain, abdominal distension, nausea, vomiting, diarrhea, constipation, melena, hematochezia GENITOURINARY: Absent: dysuria, frequency, urgency, hesitancy, hematuria, flank pain, genital pain MUSCULOSKELETAL: Absent: myalgia, arthralgia, joint swelling, back pain, neck pain SKIN: Absent: rash, itching, pallor HEMATOLOGIC/IMMUNOLOGIC: Absent: easy bleeding, easy bruising, lymphadenopathy, frequent infections ENDOCRINE: Absent: unexplained weight gain, unexplained weight loss, heat intolerance, cold intolerance NEUROLOGIC: Absent: headache, focal weakness or paresthesias, dizziness, unsteady gait, seizure, mental status changes, bladder or bowel incontinence PSYCHIATRIC: Absent: anxiety, depression, suicidal or homicidal ideation, hallucinations. PHYSICAL EXAMINATION Vital Signs - 24 hr 11/04/17 11/04/17 11/04/17 16:16 17:44 19:02 Temperature 98.8 F Pulse Rate 74 Pulse Rate [ 69 85 Apical] Respiratory 18 Rate Blood Pressure 190/109 Blood Pressure 190/90 165/96 [Left Arm] O2 Sat by Pulse 100 Oximetry (%) 11/04/17 11/04/17 11/04/17 19:11 19:43 22:59 Temperature Pulse Rate Pulse Rate [ 73 83 85 Apical] Respiratory 21 19 19 Rate Blood Pressure Blood Pressure 103/91 182/98 182/94 [Left Arm] O2 Sat by Pulse 96 96 96 Oximetry (%) 11/05/17 00:12 Temperature 99.8 F H Pulse Rate Pulse Rate [ 86 Apical] Respiratory 19 Rate Blood Pressure Blood Pressure 183/89 [Left Arm] O2 Sat by Pulse 96 Oximetry (%) GENERAL: Awake, alert, and fully oriented, in no acute distress. HEAD: Normal with no signs of trauma. EYES: Extraocular movements intact, sclera anicteric, conjunctiva clear. No lid lag. EARS, NOSE, THROAT: Oropharynx clear without exudates. Moist mucous membranes. NECK: Normal range of motion, supple without lymphadenopathy, JVD, or masses. LUNGS: Breath sounds equal, clear to auscultation bilaterally. No wheezes, and no crackles. No accessory muscle use. HEART: Regular rate and rhythm, normal S1 and S2 without murmur, rub or gallop. ABDOMEN: Soft, nontender, not distended, normoactive bowel sounds, no guarding, no rebound, no masses. No hepatomegaly or splenomegaly. MUSCULOSKELETAL: Normal range of motion at all joints. No bony deformities or tenderness. No CVA tenderness. UPPER EXTREMITIES: 2+ pulses, warm, well-perfused. No cyanosis. No clubbing. No peripheral edema. LOWER EXTREMITIES: 2+ pulses, warm, well-perfused. No calf tenderness. No peripheral edema. NEUROLOGICAL: Cranial nerves II-XII intact. Normal speech. Normal gait. PSYCHIATRIC: Cooperative. Good eye contact. Appropriate mood and affect. SKIN: Warm, dry, normal turgor, no rashes or lesions noted, normal capillary refill. Laboratory Results - last 24 hr 11/04/17 11/04/17 11/04/17 19:41 19:41 19:41 WBC 15.4 H D RBC 4.85 Hgb 13.6 Hct 40.8 MCV 84.2 MCH 28.1 MCHC 33.3 RDW 15.1 Plt Count 285 D MPV 8.5 D Total Counted 100 Neutrophils % No Result Required. Neutrophils % (Manual) 92.0 H* Band Neutrophils % 1.0 Lymphocytes % No Result Required. Lymphocytes % (Manual) 6.0 L Monocytes % (Manual) 1 L Differential Comment Man diff performed Platelet Estimate Adequate Platelet Comment Sodium 138 Potassium 3.9 Chloride 99 Carbon Dioxide 29 Anion Gap 10 BUN 18 D Creatinine 1.2 H Creat Clearance w eGFR 46.30 Random Glucose 132 H D Lactic Acid Calcium 9.6 Total Bilirubin 0.6 D AST 15 D ALT 18 Alkaline Phosphatase 87 Total Protein 8.4 H Albumin 4.2 Lipase 62 L 11/04/17 23:20 WBC RBC Hgb Hct MCV MCH MCHC RDW Plt Count MPV Total Counted Neutrophils % Neutrophils % (Manual) Band Neutrophils % Lymphocytes % Lymphocytes % (Manual) Monocytes % (Manual) Differential Comment Platelet Estimate Platelet Comment Sodium Potassium Chloride Carbon Dioxide Anion Gap BUN Creatinine Creat Clearance w eGFR Random Glucose Lactic Acid 1.9 Calcium Total Bilirubin AST ALT Alkaline Phosphatase Total Protein Albumin Lipase ASSESSMENT/PLAN: 57 year old F with pmh of HTN, hypothyroidism, and heroin abuse presenting from [facility] for opioid withdrawal placed into observation #Intractable nausea/vomiting 2/2 to opioid withdrawal -In Detox @ [facility] -Patient given suboxone in ED -Methadone in AM (10 mg-per nurse) -Promethazine 12.5 mg IVP Q4h PRN #Hypothyroidism -Check TSH in AM -Continue synthroid 125 mcg po daily #Hypertension urgency -Continue lisinopril 20 mg po daily #FEN/GI -IVF NS @ 75 cc/hr -wnl -NPO except meds #PPx -Heparin 5000 u sq tid Visit type - Emergency Visit Emergency Visit: Yes ED Registration Date: 11/04/17 Care time: The patient presented to the Emergency Department on the above date and was hospitalized for further evaluation of their emergent condition. - New Patient This patient is new to me today: Yes Date on this admission: 11/07/17 - Critical Care Critical Care patient: No
[2017-11-05 01:57] VITALS: BMI 26.0
[2017-11-05] MEDS ORDERED: SODIUM CHLORIDE 1,000 ML IV SCH (02:00)
[2017-11-05] MEDS ORDERED: diazePAM 2 MG TABLET PO PRN (02:01)
[2017-11-05] MEDS ORDERED: PROMETHAZINE HCL 25 MG/1 ML VIAL IVPUSH PRN (02:01)
[2017-11-05] MEDS ORDERED: ACETAMINOPHEN 325 MG TABLET (FP) PO ONE (04:41)
[2017-11-05] MEDS ORDERED: HEPARIN NA (PORCINE) 5,000 UNITS/ML 1ML VIAL SQ SCH (06:00)
[2017-11-05] MEDS ORDERED: hydrALAZINE HCL 25 MG TABLET (FP) PO SCH (06:00)
[2017-11-05] MEDS ORDERED: hydrALAZINE HCL 20 MG/ML VIAL IVPUSH ONE (06:05)
[2017-11-05] MEDS: LEVOTHYROXINE NA 125 MCG TABLET (FP) PO SCH (06:24)
[2017-11-05] MEDS ORDERED: hydrALAZINE HCL 20 MG/ML VIAL IVPB ONE (06:30)
[2017-11-05] MEDS ORDERED: LISINOPRIL 20 MG TABLET (FP) PO ONE (06:36)
[2017-11-05] MEDS ORDERED: METHADONE HCL 5 MG TABLET PO SCH (08:45)
[2017-11-05] MEDS ORDERED: chlordiazePOXIDE HCL 25 MG CAPSULE PO PRN (09:16)
[2017-11-05] MEDS ORDERED: chlordiazePOXIDE HCL 25 MG CAPSULE PO STA (09:16)
[2017-11-05] MEDS ORDERED: METOPROLOL TARTRATE 50 MG TABLET (FP) PO STA (09:19)
[2017-11-05 09:56] LABS: BASOPHIL 0.4 % (0-2.0); EOSINOPHIL 0.1 % (0-4.5); MCH 27.9 pg (25.7-33.7); MEAN CELL VOLUME 84.5 fl (80-96); MEAN PLT VOLUME 8.8 fl (7.5-11.1); NEUTROPHILS 82.7 % (42.8-82.8); PLATELET COUNT 304 K/MM3 (134-434); RDW 15.4 % (11.6-15.6); WHITE BLOOD COUNT 13.6 K/mm3 (4.0-10.0)
[2017-11-05] MEDS ORDERED: LISINOPRIL 20 MG TABLET (FP) PO SCH (10:00)
[2017-11-05 10:35] LABS: ANION GAP 10 (8-16); CALCIUM 9.2 mg/dL (8.5-10.1); CO2 26 mmol/L (21-32); GLUCOSE,RANDOM 103 mg/dL (74-106); MAGNESIUM 1.9 mg/dL (1.8-2.4); PHOSPHOROUS 3.7 mg/dL (2.5-4.9)
[2017-11-05 10:42] LABS: THYROID STIMULATING HORMONE 1.96 uIU/ml (0.358-3.74)
[2017-11-05] MEDS ORDERED: chlordiazePOXIDE HCL 25 MG CAPSULE PO SCH ×2 (11:00→17:00)
--- NOTE | 2017-11-05 11:23 | CONSULT ---
"Consult Detox [facility] Reason for Current Admission/Consult: polysubstance use Referred by:: Arjun Heart NP - History History of Present Illness: 57 yo f was admitted last week to [facility] for detox from heroin as she ran out of suboxone prescribed by MD and relapsed to [facility] and [facility] with elevated WBC and [facility] and admitted for hydration, control of nausea and vomiting, r/o endocarditis. Patient has been refusing methadone requesting to be placed back on regular suboxone dose for withdrawal sx and then return to [facility] for rehab. feels all her symptoms will be controlled using suboxone, does not feel at this time she has any infection. has been recieving libirum and metoprolol while here [place] Hdz, 1960 Search Date: 11/05/2017 11:37:22 AM The Drug Utilization Report below displays all of the controlled substance prescriptions, if any, that your patient has filled in the last twelve months. The information displayed on this report is compiled from pharmacy submissions to the Department, and accurately reflects the information as submitted by the pharmacies. This report was requested by: Nikita Arthur | Reference #: [id number] Others' Prescriptions Patient Name: Shannon Hdz Date: 1960 Address: [address] [place] [address] Sex: Female Rx Written Rx Dispensed Drug Quantity Days Supply Prescriber Name 10/17/2017 10/17/2017 suboxone 8 mg-2 mg sl film 60 30 MitchellAraceli kim V K 10/16/2017 10/16/2017 clonazepam 0.5 mg tablet 90 30 Steffanie Bolivar MD 09/14/2017 09/18/2017 suboxone 8 mg-2 mg sl film 60 30 Dileep Khan MD 09/13/2017 09/13/2017 clonazepam 0.5 mg tablet 90 30 Steffanie Bolivar MD 08/22/2017 08/22/2017 suboxone 8 mg-2 mg sl film 60 30 Araceli Mitchell V K 08/01/2017 08/03/2017 clonazepam 0.5 mg tablet 90 30 Steffanie Bolivar MD 08/01/2017 08/03/2017 zolpidem tartrate 10 mg tablet 30 30 Steffanie Bolivar MD 07/20/2017 07/20/2017 suboxone 8 mg-2 mg sl film 60 30 Mitchell Araceli Thomas MD 07/06/2017 07/06/2017 clonazepam 0.5 mg tablet 90 30 Steffanie Bolivar MD 07/06/2017 07/06/2017 zolpidem tartrate 10 mg tablet 30 30 Steffanie Bolivar MD 06/22/2017 06/22/2017 suboxone 8 mg-2 mg sl film 60 30 Mitchell Araceli Thomas MD 05/31/2017 06/15/2017 zolpidem tartrate 10 mg tablet 30 30 Steffanie Bolivar MD 05/31/2017 05/31/2017 clonazepam 0.5 mg tablet 90 30 Steffanie Bolivar MD 05/02/2017 05/25/2017 clonazepam 0.5 mg tablet 90 30 Steffanie Bolivar MD 05/02/2017 05/25/2017 zolpidem tartrate 10 mg tablet 30 30 Steffanie Bolivar MD 05/25/2017 05/25/2017 suboxone 8 mg-2 mg sl film 60 30 Mitchell, Araceli Thomas MD 04/19/2017 04/20/2017 suboxone 8 mg-2 mg sl film 60 30 Mitchell, Araceli Thomas MD 04/03/2017 04/03/2017 clonazepam 1 mg tablet 60 30 Steffanie Bolivar MD 04/03/2017 04/03/2017 zolpidem tartrate 10 mg tablet 30 30 Steffanie Bolivar MD 03/21/2017 03/22/2017 suboxone 8 mg-2 mg sl film 60 30 Mitchell, Araceli Thomas MD 02/21/2017 02/21/2017 zolpidem tartrate 10 mg tablet 30 30 Steffanie Bolivar MD 02/21/2017 02/21/2017 clonazepam 1 mg tablet 90 30 Steffanie Bolivar MD 02/16/2017 02/16/2017 suboxone 8 mg-2 mg sl film 60 30 Mitchell, Araceli Thomas MD 01/11/2017 01/11/2017 clonazepam 1 mg tablet 90 30 Steffanie Bolivar MD 01/11/2017 01/11/2017 zolpidem tartrate 10 mg tablet 30 30 Steffanie Bolivar MD 01/11/2017 01/11/2017 suboxone 8 mg-2 mg sl film 60 30 Stephen Honeyjudy Rj Thomas MD 12/13/2016 12/13/2016 suboxone 8 mg-2 mg sl film 60 30 Stephen Araceli Thomas MD 12/13/2016 12/13/2016 clonazepam 1 mg tablet 90 30 Steffanie Bolivar MD 12/13/2016 12/13/2016 zolpidem tartrate 10 mg tablet 30 30 Steffanie Bolivar MD Top of Form 1 Bottom of Form 1 Report Suspicious Activity Send Questions/Comments Substance Abuse Treatment Information Click the Report Suspicious Activity button to report information related to controlled substance suspicious activity to the [place] [employer]. Click the Send Questions/Comments button to send questions about this report to the [place] [employer], or call . Click the Substance Abuse Treatment Information button to go to the Office of Alcoholism and Substance Abuse Services website, www.[place].gov or call 1- 384.956.2449. [address] [facility] Department of Health - [place] [employer] - History Source History Provided By: Patient, Medical Record, Caregiver - Alcohol/Substance Use Hx Alcohol Use: No Hx Substance Use: Yes Hx Substance Use Treatment: Yes ([facility]) - Current Drug/Alcohol Use Heroin Route: Injection Frequency: Daily - Past Medical History ...LMP: 12/30/11 - Significant Medical Findings: opioid withdrawal sx noted, sedated in bed afterlibirum COWS - Scale Resting Pulse: 1= AL 81-100 Sweatin= Chills/Flushing Restless Observation: 1= Difficult to Sit Still Pupil Size: 1= Pupils >than Normal Bone or Joint Aches: 1= Mild Discomfort Runny Nose/ Eye Tearin= Nasal Congestion GI Upset > 30mins: 1= Stomach Cramp Tremor Observation: 1= Tremor [place], Not Seen Yawning Observation: 1= 1-2x During Session Anxiety or Irritability: 2=Irritable/Anxious Goose Flesh Skin: 3=Piloerection COWS Score: 14 CIWA Score - CIWA Score Nausea/Vomitin-Int. Nausea w/Dry Heave Muscle Tremors: 1-None Visible, but [place] Anxiety: 1-Mildly Anxious Agitation: 1-Slight > Activity Paroxysmal Sweats: No Perspiration Orientation: 0-Oriented Tacttile Disturbances: 0-None Auditory Disturbances: 0-None Visual Disturbances: 0-None Headache: 0-None Present CIWA-Ar Total Score: 7 Assessment Plan - Diagnosis (1) Benzodiazepine dependence Status: Acute (2) Nicotine dependence Status: Acute (3) Asthma Status: Chronic Qualifiers: Asthma severity: mild Asthma complication type: with status asthmaticus (4) COPD (chronic obstructive pulmonary disease) Status: Chronic Qualifiers: Chronic bronchitis type: unspecified (5) GERD (gastroesophageal reflux disease) Status: Chronic Qualifiers: Esophagitis presence: without esophagitis Qualified Code(s): K21.9 - Gastro -esophageal reflux disease without esophagitis (6) Hypertension Status: Chronic Qualifiers: Hypertension type: essential hypertension Qualified Code(s): I10 - Essential (primary) hypertension (7) Hypothyroidism Status: Chronic Qualifiers: Hypothyroidism type: unspecified Qualified Code(s): E03.9 - Hypothyroidism , unspecified (8) Opioid dependence with withdrawal Status: Chronic (9) Substance induced mood disorder Status: Suspected (10) Hepatitis C antibody test positive Status: Resolved - Plan Plan: 57 yo f transferred from [facility] where she was having a methadone detox protocol ordered for h/o opioid use disorder as she was in withdrawal after running out of he5r suboxone as prescribed. Was refusing methadone and developed uncontrolled nausea, vomiting which was the most likely reason for elevated wbx. today start on suboxone 8mg maintenance dose and d/c detox ,can give valium 10mg qHS fro sleep but does not need benzodiazszepine detox, understands she will not recieve clonazepam as prescribed in rehab but will have suboxone dose adjusted upwards as tolerance develops so she is comfortable. start thimaine, 100mg qhs AND VITIAMINS, ZOFRAN SCHDULE AROUND THE CLOCK, HYDRATE, FLUIDS, START LOW SODIUM DIET, D/C METOPROLOL, restart lisinopril for HTN and titirate to normal dose of 20mg daily. If bp remains high can give catapress 0.1 mg po bid prn hold for bp<90/60. bed available in rehab, would send back as soon as she is medically cleared. no further detox required. Nikita Cardona MD [phone] - Medication Detox Regimen/Protocol: Valxiomara, Suboxone"
[2017-11-05] MEDS ORDERED: diazePAM 5 MG TABLET PO PRN (11:27)
[2017-11-05] MEDS ORDERED: ONDANSETRON *ODT* 4 MG TABLET SL SCH (11:30)
[2017-11-05] MEDS ORDERED: cloNIDine HCL 0.1 MG TABLET PO SCH (11:30)
[2017-11-05] MEDS ORDERED: ZOLPIDEM TARTRATE 5 MG TABLET PO PRN (11:30)
[2017-11-05] MEDS ORDERED: diazePAM 5 MG TABLET PO ONE (11:31)
[2017-11-05] MEDS ORDERED: ALBUTEROL SO4 18 GM HFA INHALER IH PRN (11:43)
[2017-11-05] MEDS ORDERED: LEVOFLOXACIN 500 MG IVPB 500 MG/100 ML BAG IVPB SCH (11:45)
[2017-11-05] MEDS ORDERED: cloNIDine HCL 0.1 MG TABLET PO PRN (12:03)
[2017-11-05] MEDS ORDERED: NAPROXEN 500 MG TABLET (FP) PO PRN (12:04)
[2017-11-05] MEDS: BUPRENORPHINE/NALOXONE 8 MG/2 MG FILM PACKET SL SCH (12:59)
[2017-11-05] MEDS: PANTOPRAZOLE 40 MG TABLET (FP) PO SCH (13:57)
[2017-11-05] MEDS: PRENATAL VITAMINS W/ FOLIC ACID TABLET (FP) PO SCH (13:57)
[2017-11-05] MEDS: LISINOPRIL 10 MG TABLET (FP) PO SCH (13:57)
[2017-11-05] MEDS: CYCLOBENZAPRINE HCL 10 MG TABLET (FP) PO SCH ×2 (13:57→21:41)
[2017-11-05] MEDS: LIDOCAINE 5% TOPICAL PATCH TP SCH (13:57)
--- NOTE | 2017-11-05 14:49 | PN ---
Progress Note (short form) - Note Progress Note: ID Consult dictated Tracheobronchitis , possible pneumonia Opiate withdrawal Await c/s CT chest HIV test ( pt gives consent) Empiric levaquin
--- NOTE | 2017-11-05 15:00 | EKG ---
Test Reason : Blood Pressure : / mmHG Vent. Rate : 069 BPM Atrial Rate : 069 BPM P-R Int : 150 ms QRS Dur : 082 ms QT Int : 414 ms P-R-T Axes : 075 019 053 degrees QTc Int : 443 ms NORMAL SINUS RHYTHM POSSIBLE LEFT ATRIAL ENLARGEMENT BORDERLINE ECG WHEN COMPARED WITH ECG OF 01-NOV-2017 17:10, NO SIGNIFICANT CHANGE WAS FOUND Confirmed by JUDITH LOVELACE MD ([id number]) on 11/05/2017 3:00:12 PM Referred By: Confirmed By:JUDITH LOVELACE MD
[2017-11-05] MEDS ORDERED: ACETAMINOPHEN 325 MG TABLET (FP) PO PRN (15:35)
--- NOTE | 2017-11-05 17:32 | CONS ---
DATE OF CONSULTATION: HISTORY: The patient is a 57-year-old female with a history of active injection drug use who is evaluated for possible pneumonia. She was admitted to detoxification on November 04, 2017 for opiates. Her course was complicated by nausea, crampy abdominal pain, bilious vomiting, generalized weakness, anorexia, chills, and hypertension. She was felt to have withdrawal syndrome. Her course was further complicated by chest pressure and cough productive of thick, green sputum. She was admitted to the hospital where CAT scan of the abdomen and pelvis was performed. It showed some possible proctocolitis as well as possible left basilar infiltrate. The patient denies any abdominal pain at the present time. No recurrent nausea or vomiting. She has had no diarrhea. The patient reports having constipation. She had a bowel movement on the day of admission. She is an active IV drug user. She states she tested HIV negative in the past, however, is willing to have a repeat test. Patient with a history of hepatitis C, per chart, however, no history of treatment. PAST MEDICAL HISTORY: Positive for hypertension, hypothyroidism, low back pain, COPD, asthma, gastroesophageal reflux disease, hepatitis C. ALLERGIES: No known allergies. MEDICATIONS: Lidoderm, Prinivil, Ambien, Valium, Catapres, Flexeril, Naproxen, Protonix, Synthroid. SOCIAL HISTORY: She is an active IV drug user. Positive tobacco use. HIV negative, per patient. LABORATORY DATA: White count 13.6, hematocrit 44.2, platelet count 304, lactic acid 1.9, BUN 19, creatinine 1. Liver enzymes normal. Urinalysis negative. PHYSICAL EXAMINATION: General: She is awake and alert. She is ambulatory. She is not actively toxic appearing. Vital Signs: Temperature 98, T-max 99.8, blood pressure 182/109, pulse 77 and regular, respirations 18 per minute. HEENT: Sclerae anicteric. Heart: Sounds S1, S2. No murmur. Lungs: Bilateral rhonchi with short end-expiratory wheezing. Abdomen: Soft. No tenderness elicited. Extremities: Negative for edema. IMPRESSION: 1. Tracheal bronchitis, possible pneumonia. 2. Opiate withdrawal. PLAN: Await culture results. CAT scan of the chest has been ordered. We will do HIV testing. The patient gives verbal consent. Empiric antibiotic coverage with Levaquin 500 mg IV piggyback every 24 hours. We will follow. Thank you for the kind referral. ERIC JALLOH M.D. JASON/[id number]
[2017-11-05] MEDS: LEVOFLOXACIN 500 MG IVPB 500 MG/100 ML BAG IVPB SCH (17:39)
[2017-11-05] MEDS: diazePAM 5 MG TABLET PO SCH (21:41)
[2017-11-05] MEDS: THIAMINE HCL 100 MG TABLET (FP) PO SCH (21:41)
[2017-11-05] MEDS: cloNIDine HCL 0.1 MG TABLET PO SCH (21:41)
[2017-11-05] MEDS: LIDOCAINE PATCH REMOVAL MC SCH (21:42)
[2017-11-06] MEDS ORDERED: PT OWN MED DRAWER 7, Y5N ONE (06:23)
[2017-11-06] MEDS: LEVOTHYROXINE NA 125 MCG TABLET (FP) PO SCH (06:32)
[2017-11-06] MEDS: CYCLOBENZAPRINE HCL 10 MG TABLET (FP) PO SCH ×3 (06:33→21:21)
[2017-11-06 07:52] LABS: BASOPHIL 0.8 % (0-2.0); EOSINOPHIL 1.1 % (0-4.5); MCHC 32.9 g/dl (32.0-36.0); MEAN CELL VOLUME 85.1 fl (80-96); MEAN PLT VOLUME 9.2 fl (7.5-11.1); NEUTROPHILS 66.9 % (42.8-82.8); PLATELET COUNT 289 K/MM3 (134-434); RDW 15.2 % (11.6-15.6); WHITE BLOOD COUNT 11.8 K/mm3 (4.0-10.0)
[2017-11-06 08:22] LABS: ALBUMIN 3.7 g/dl (3.4-5.0); ANION GAP 10 (8-16); CALCIUM 9.4 mg/dL (8.5-10.1); CO2 28 mmol/L (21-32); CREATININE 1.2 mg/dL (0.55-1.02); GLUCOSE,RANDOM 70 mg/dL (74-106); PHOSPHOROUS 3.6 mg/dL (2.5-4.9); SGPT/ALT 17 U/L (12-78)
[2017-11-06 08:24] LABS: ALK PHOS 79 U/L (45-117); BILIRUBIN,TOTAL 0.9 mg/dL (0.2-1.0); TOT PROT 7.9 g/dl (6.4-8.2)
[2017-11-06 08:30] LABS: MAGNESIUM 2.3 mg/dL (1.8-2.4); SGOT/AST 21 U/L (15-37)
[2017-11-06 09:54] LABS: HIV 1 & 2 AB NEGATIVE; HIV 1 AGp24 NEGATIVE
[2017-11-06] MEDS ORDERED: METHADONE HCL 10 MG TABLET (FOR DETOX USE ONLY) PO ONE (10:00)
[2017-11-06] MEDS ORDERED: chlordiazePOXIDE HCL 25 MG CAPSULE PO SCH (11:00)
--- NOTE | 2017-11-06 11:07 | PN ---
Physical Exam: SUBJECTIVE: Patient seen and examined at the bedside. Awake, calm, cooperative, willing to continue treatment for heroin withdrawal. States she feels mildly short of breath at rest and has had asthma in the past with apx 4 exacerbation of asthma per year. OBJECTIVE: Wheezing auscultated throughout all lung galarza, however comfortable at rest and tolerating room air, +non productive cough with congestion. Hx of asthma and has apx 4 exacerbations per year, pulmonary consulted Period Temp Pulse Resp BP Sys/Gomez Pulse Ox Last 24 Hr 97.7 F-100.3 F 61-77 18-68 101-190/60-109 96 GENERAL: The patient is awake, alert, and fully oriented, in no acute distress. HEAD: Normal with no signs of trauma. EYES: PERRL, extraocular movements intact, sclera anicteric, conjunctiva clear. No ptosis. ENT: Ears normal, nares patent, oropharynx clear without exudates, moist mucous membranes. NECK: Trachea midline, full range of motion, supple. LUNGS: +wheezing noted throughout all lung galarza, tolerating room air, congested, non-productive cough HEART: Regular rate and rhythm, S1, S2 without murmur, rub or gallop. ABDOMEN: Soft, nontender, nondistended, normoactive bowel sounds, no guarding, no rebound, no hepatosplenomegaly, no masses. EXTREMITIES: mild edema of left knee NEUROLOGICAL: Normal speech, gait not observed. PSYCH: Normal mood, normal affect. SKIN: Warm, dry, normal turgor, no rashes or lesions noted Laboratory Results - last 24 hr 11/06/17 11/06/17 11/06/17 06:00 06:00 06:00 WBC 11.8 H RBC 4.98 Hgb 13.9 Hct 42.3 MCV 85.1 MCH 28.0 MCHC 32.9 RDW 15.2 Plt Count 289 MPV 9.2 Neutrophils % 66.9 Lymphocytes % 25.1 D Monocytes % 6.1 Eosinophils % 1.1 D Basophils % 0.8 Sodium 137 Potassium 4.0 Chloride 99 Carbon Dioxide 28 Anion Gap 10 BUN 30 H D Creatinine 1.2 H Creat Clearance w eGFR 46.30 Random Glucose 70 L D Calcium 9.4 Phosphorus 3.6 Magnesium 2.3 D Total Bilirubin 0.9 D AST 21 D ALT 17 Alkaline Phosphatase 79 Total Protein 7.9 Albumin 3.7 HIV 1&2 Antibody Screen Negative HIV P24 Antigen Negative Active Medications Generic Name Dose Route Start Last Admin Trade Name Freq PRN Reason Stop Dose Admin Acetaminophen 650 mg 11/05/17 15:35 11/05/17 15:55 Tylenol - PO 650 mg Q6H PRN Administration FEVER OR PAIN Albuterol Sulfate 2 puff 11/05/17 11:43 Ventolin Hfa Inhaler - IH Q4H PRN WHEEZING Buprenorphine/Naloxone 1 each 11/05/17 12:00 11/05/17 12:59 Suboxone 8mg/2mg Sl Film - SL 1 each DAILY DEBRA Administration Clonidine 0.1 mg 11/05/17 12:03 11/05/17 15:55 Catapres - PO 0.1 mg BID PRN Administration HYPERTENSION Clonidine 0.1 mg 11/05/17 22:00 11/05/17 21:41 Catapres - PO 0.1 mg BID DEBRA Administration Cyclobenzaprine HCl 10 mg 11/05/17 14:00 11/06/17 06:33 Flexeril - PO 10 mg TID DEBRA Administration Diazepam 10 mg 11/05/17 22:00 11/05/17 21:41 Valium - PO 10 mg HS DEBRA Administration Levofloxacin 500 mg in 100 mls @ 100 mls/hr 11/05/17 15:00 11/05/17 17:39 Levaquin 500 Mg Premixed Ivpb - IVPB 100 mls/hr DAILY DEBRA Administration Levothyroxine Sodium 125 mcg 11/05/17 07:00 11/06/17 06:32 Synthroid - PO 125 mcg DAILY@0700 DEBRA Administration Lidocaine 1 patch 11/05/17 12:15 11/05/17 13:57 Lidoderm Patch - TP 1 patch DAILY DEBRA Administration Lisinopril 10 mg 11/05/17 12:00 11/05/17 13:57 Prinivil PO 10 mg DAILY DEBRA Administration Miscellaneous 1 each 11/05/17 22:00 11/05/17 21:42 Lidoderm Patch Removal MC 1 each DAILY@2200 DEBRA Administration Naproxen 500 mg 11/05/17 12:04 Naprosyn - PO BID PRN BACK PAIN Pantoprazole Sodium 40 mg 11/05/17 12:15 11/05/17 13:57 Protonix - PO 40 mg DAILY DEBRA Administration Multivit/Folic Acid/Iron 1 tab 11/05/17 12:15 11/05/17 13:57 Vitamins (Sjr) - PO 1 tab DAILY DEBRA Administration Thiamine HCl 100 mg 11/05/17 22:00 11/05/17 21:41 Vitamin B1 - PO 100 mg HS DEBRA Administration Zolpidem Tartrate 10 mg 11/05/17 11:30 Ambien - PO HS PRN INSOMNIA ASSESSMENT/PLAN: Patient is a 57 year old female with a significant past medical history of hypothyroidism, hypertension, heroin IV abuse, and asthma. She presents to from [facility] for heroin detox after she had ran out of suboxone (as prescribed by her MD) and relapsed to IV drug use. At [facility] she developed uncontrolled nausea and vomiting with elevated WBC and was transferred to [facility] for hydration, control of her nausea or vomiting and to rule out endocarditis. On admission, she was also noted to be in hypertensive urgency ( likely secondary to acute IV drug withdrawal) and was treated with Clonidine and IV Labetalol. On exam she denies chest pain or pressure, currently denies any shortness of breath. Denies any further vomiting or abdominal pain. Once she is medically cleared, she will return back to [facility] for rehab. Imaging: CT/Chest CT w/o contrast 11/05/17: mild to moderate chronic lung disease with no acute pathology within the chest. 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 Pneumonia (secondary to aspiration?) Pt reported to be vomiting at [facility] (likely due to withdrawal) On Levaquin, day #2, as per ID Monitor respiratory status WBC trending down Supplement oxygen as needed Duonebs scheduled Psyche: Heroin abuse/IV drug use Under treatment with Suboxone 8mg daily Psyche following No withdrawal symptoms on exam GI: Abdominal Pain with Nausea, resolved Zofran prn Renal: AMPARO Likely secondary to vomiting, poor PO intake Creat 1.2, continue to trend for now Monitor daily labs, hold off on IVF due to wheezing and congestion Endocrine: Hypothyroidism, chronic TSH wnl continue home dose of Synthroid F.E.N. Fluids: tolerating PO Electrolytes: monitor Nutrition: supplements added, regular diet Visit type - Emergency Visit Emergency Visit: Yes ED Registration Date: 11/04/17 Care time: The patient presented to the Emergency Department on the above date and was hospitalized for further evaluation of their emergent condition. - New Patient This patient is new to me today: Yes Date on this admission: 11/06/17 - Critical Care Critical Care patient: No - Discharge Referral Referred to [facility] Med P.C.: No
[2017-11-06] MEDS: cloNIDine HCL 0.1 MG TABLET PO SCH ×2 (11:29→21:22)
[2017-11-06] MEDS: LEVOFLOXACIN 500 MG IVPB 500 MG/100 ML BAG IVPB SCH (11:29)
[2017-11-06] MEDS: PRENATAL VITAMINS W/ FOLIC ACID TABLET (FP) PO SCH (11:30)
[2017-11-06] MEDS: LIDOCAINE 5% TOPICAL PATCH TP SCH (11:30)
[2017-11-06] MEDS: PANTOPRAZOLE 40 MG TABLET (FP) PO SCH (11:31)
[2017-11-06] MEDS: LISINOPRIL 10 MG TABLET (FP) PO SCH (11:31)
[2017-11-06] MEDS: BUPRENORPHINE/NALOXONE 8 MG/2 MG FILM PACKET SL SCH (11:32)
--- NOTE | 2017-11-06 12:14 | CON.PULM ---
Consult Consult Specialty:: PULMONARY Referred by:: CHAYA Heart Reason for Consultation:: shortness of breath - History of Present Illness Chief Complaint: opioid withdrawal History of Present Illness: 57yo female with h/o HTN, hypothyroidism, asthma, IVDA who was transferred from [facility] for heroin withdrawal. She had run out of her suboxone. She reports feeling more short of breath for the past month, she had recently returned from the [facility]. She reports a cough productive of green sputum and wheezing with chest congestion/tightness. No fevers or chills. She does have a history of asthma, never hospitalized but did receive a course of prednisone earlier this year. She is maintained at home on albuterol MDI and nebulizers. She is a long time smoker, started at age 15. - History Source History Provided By: Patient, Medical Record Limitations to Obtaining History: No Limitations - Past Medical History Cardio/Vascular: Yes: HTN Pulmonary: Yes: Asthma ...LMP: 12/30/11 Endocrine: Yes: Hypothyroidism - Alcohol/Substance Use Hx Alcohol Use: No - Smoking History Smoking history: Current every day smoker Have you smoked in the past 12 months: Yes Aproximately how many cigarettes per day: 4 If you are a former smoker, when did you quit?: february 2014 Home Medications - Allergies Allergies/Adverse Reactions: Allergies Allergy/AdvReac Type Severity Reaction Status Date / Time No Known Allergies Allergy Verified 11/04/17 16:25 - Home Medications Home Medications: Ambulatory Orders Buprenorphine/Naloxone [Suboxone 8Mg/2Mg Sl Film -] 1 each SL BID 08/27/17 Albuterol Sulfate Inhaler - [Ventolin HFA Inhaler -] 2 inh PO Q4H PRN #1 inh Levothyroxine [Synthroid -] 125 mcg PO DAILY@0700 #30 tablet 09/10/17 Lisinopril [Prinivil] 20 mg PO DAILY #30 tab 09/10/17 Quetiapine Fumarate [Seroquel -] 50 mg PO HS #30 tablet 09/10/17 Family Disease History - Family Disease History Family Disease History: Diabetes: Father (), Mother (depression;HTN, ), Sister (depression; liver and kidney problems), Heart Disease: Mother , Sister, Other: Father, Mother, Sister Review of Systems - Review of Systems Constitutional: denies: Chills, Fever Eyes: denies: Recent Change in Vision HENT: denies: Nasal Congestion, Throat Pain Neck: denies: Stiffness, Tenderness Cardiovascular: reports: Shortness of Breath. denies: Chest Pain, Edema, Palpitations Respiratory: reports: Cough, SOB on Exertion, Wheezing. denies: Hemoptysis Gastrointestinal: reports: Nausea, Vomiting. denies: Abdominal Pain Genitourinary: denies: Dysuria, Hematuria Neurological: denies: Dizziness, Headache Endocrine: denies: Unexplained Weight Loss Physical Exam Vital Sings: Vital Signs Temperature 97.7 F 11/06/17 06:00 Pulse Rate 62 11/06/17 06:00 Respiratory Rate 20 11/06/17 06:00 Blood Pressure 101/62 11/06/17 06:00 O2 Sat by Pulse Oximetry (%) 96 11/06/17 01:00 Constitutional: Yes: Calm Eyes: Yes: Conjunctiva Clear, EOM Intact HENT: Yes: Atraumatic, Normocephalic Neck: Yes: Supple, Trachea Midline Cardiovascular: Yes: Regular Rate and Rhythm Respiratory: Yes: Rhonchi, Wheezes ...Clubbing: No Gastrointestinal: Yes: Normal Bowel Sounds, Soft. No: Tenderness Edema: No Neurological: Yes: Alert, Oriented Labs: CBC, BMP 11/06/17 06:00 11/06/17 06:00 Imaging - Results Cat Scan: Report Reviewed, Image Reviewed (no infiltrates) Problem List - Problems (1) Acute asthma exacerbation Code(s): J45.901 - UNSPECIFIED ASTHMA WITH (ACUTE) EXACERBATION (2) Acute bronchitis Code(s): J20.9 - ACUTE BRONCHITIS, UNSPECIFIED (3) Withdrawal from opioids Code(s): F11.23 - OPIOID DEPENDENCE WITH WITHDRAWAL (4) Hypertension Code(s): I10 - ESSENTIAL (PRIMARY) HYPERTENSION Qualifiers: Hypertension type: essential hypertension Qualified Code(s): I10 - Essential (primary) hypertension (5) Hypothyroidism Code(s): E03.9 - HYPOTHYROIDISM, UNSPECIFIED Qualifiers: Hypothyroidism type: unspecified Qualified Code(s): E03.9 - Hypothyroidism , unspecified (6) Opioid dependence with withdrawal Code(s): F11.23 - OPIOID DEPENDENCE WITH WITHDRAWAL Assessment/Plan Acute Asthma Exacerbation Acute Bronchitis Opioid Withdrawal HTN Hypothyroidism Smoker - will give short course of medrol x 48 hrs then reassess need to continue - inhaled bronchodilators standing and PRN - agree with antibiotics - f/u cultures - withdrawal management - smoking cessation - DVT prophylaxis Thank you for this consult Marcelino Sheffield MD
[2017-11-06] MEDS ORDERED: ONDANSETRON 4 MG/2 ML VIAL IVPUSH PRN (13:21)
[2017-11-06] MEDS: methylPREDNISolone NA SUCC 40 MG/1 ML VIAL IVPUSH SCH ×2 (14:01→18:11)
--- NOTE | 2017-11-06 16:50 | PN ---
Progress Note, Physician History of Present Illness: No c/o chest pain/ dyspnea Still with cough productive of green sputum Afebrile WBC down CT chest no pneumonia HIV (-) - Current Medication List Current Medications: Active Medications Acetaminophen (Tylenol -) 650 mg PO Q6H PRN PRN Reason: FEVER OR PAIN Last Admin: 11/05/17 15:55 Dose: 650 mg Albuterol Sulfate (Ventolin Hfa Inhaler -) 2 puff IH Q6H [facility] Albuterol/Ipratropium (Duoneb -) 1 amp NEB QIDR [facility] Buprenorphine/Naloxone (Suboxone 8mg/2mg Sl Film -) 1 each SL DAILY [facility] Last Admin: 11/06/17 11:32 Dose: 1 each Clonidine (Catapres -) 0.1 mg PO BID PRN PRN Reason: HYPERTENSION Last Admin: 11/05/17 15:55 Dose: 0.1 mg Clonidine (Catapres -) 0.1 mg PO BID [facility] Last Admin: 11/06/17 11:29 Dose: 0.1 mg Cyclobenzaprine HCl (Flexeril -) 10 mg PO TID [facility] Last Admin: 11/06/17 14:01 Dose: 10 mg Diazepam (Valium -) 10 mg PO HS [facility] Last Admin: 11/05/17 21:41 Dose: 10 mg Levofloxacin (Levaquin 500 Mg Premixed Ivpb -) 500 mg in 100 mls @ 100 mls/hr IVPB DAILY [facility] Last Admin: 11/06/17 11:29 Dose: 100 mls/hr Levothyroxine Sodium (Synthroid -) 125 mcg PO DAILY@0700 [facility] Last Admin: 11/06/17 06:32 Dose: 125 mcg Lidocaine (Lidoderm Patch -) 1 patch TP DAILY [facility] Last Admin: 11/06/17 11:30 Dose: 1 patch Lisinopril (Prinivil) 10 mg PO DAILY [facility] Last Admin: 11/06/17 11:31 Dose: 10 mg Methylprednisolone Sodium Succinate (Solu-Medrol -) 40 mg IVPUSH Q8H-IV [facility] Last Admin: 11/06/17 14:01 Dose: 40 mg Miscellaneous (Lidoderm Patch Removal) 1 each MC DAILY@2200 [facility] Last Admin: 11/05/17 21:42 Dose: 1 each Naproxen (Naprosyn -) 500 mg PO BID PRN PRN Reason: BACK PAIN Ondansetron HCl (Zofran Injection) 4 mg IVPUSH Q6H PRN PRN Reason: NAUSEA AND/OR VOMITING Pantoprazole Sodium (Protonix -) 40 mg PO DAILY [facility] Last Admin: 11/06/17 11:31 Dose: 40 mg Multivit/Folic Acid/Iron ( Vitamins (Sjr) -) 1 tab PO DAILY [facility] Last Admin: 11/06/17 11:30 Dose: 1 tab Thiamine HCl (Vitamin B1 -) 100 mg PO HS [facility] Last Admin: 11/05/17 21:41 Dose: 100 mg Zolpidem Tartrate (Ambien -) 10 mg PO HS PRN PRN Reason: INSOMNIA - Objective Vital Signs: Vital Signs Temperature 97.3 F L 11/06/17 13:49 Pulse Rate 72 11/06/17 13:49 Respiratory Rate 20 11/06/17 13:49 Blood Pressure 100/63 11/06/17 13:49 O2 Sat by Pulse Oximetry (%) 95 11/06/17 09:00 Constitutional: Yes: No Distress Cardiovascular: Yes: Regular Rate and Rhythm, S1, S2 Respiratory: Yes: Rhonchi Gastrointestinal: Yes: Normal Bowel Sounds, Soft. No: Tenderness Edema: No Labs: CBC, BMP 11/06/17 06:00 11/06/17 06:00 Assessment/Plan Tracheobronchitis Opiate withdrawal Substitute po levaquin
[2017-11-06] MEDS ORDERED: LEVOFLOXACIN 500 MG TABLET (FP) PO ONE (16:51)
[2017-11-06] MEDS: ALBUTEROL SO4 2.5/IPRATROPIUM 0.5 INH SOL 3 ML VIAL.NEB. NEB SCH ×2 (17:39→23:20)
[2017-11-06] MEDS: diazePAM 5 MG TABLET PO SCH (21:22)
[2017-11-06] MEDS: THIAMINE HCL 100 MG TABLET (FP) PO SCH (21:23)
[2017-11-06] MEDS: LIDOCAINE PATCH REMOVAL MC SCH (23:01)
[2017-11-07] MEDS: methylPREDNISolone NA SUCC 40 MG/1 ML VIAL IVPUSH SCH ×3 (02:51→18:41)
[2017-11-07] MEDS ORDERED: METHADONE HCL 5 MG TABLET (FOR DETOX USE ONLY) PO ONE (06:00)
[2017-11-07] MEDS: CYCLOBENZAPRINE HCL 10 MG TABLET (FP) PO SCH ×3 (06:17→21:21)
[2017-11-07] MEDS: ALBUTEROL SO4 18 GM HFA INHALER IH SCH ×5 (06:17→22:57)
[2017-11-07] MEDS: LEVOTHYROXINE NA 125 MCG TABLET (FP) PO SCH (06:50)
[2017-11-07] MEDS: ALBUTEROL SO4 2.5/IPRATROPIUM 0.5 INH SOL 3 ML VIAL.NEB. NEB SCH ×3 (07:08→18:25)
[2017-11-07 07:53] LABS: BASOPHIL 0.4 % (0-2.0); MCH 27.7 pg (25.7-33.7); MEAN CELL VOLUME 83.9 fl (80-96); NEUTROPHILS 89.1 % (42.8-82.8); PLATELET COUNT 304 K/MM3 (134-434); RDW 15.1 % (11.6-15.6)
[2017-11-07 08:25] LABS: ALBUMIN 3.5 g/dl (3.4-5.0); ANION GAP 7 (8-16); CALCIUM 9.4 mg/dL (8.5-10.1); CO2 29 mmol/L (21-32); CREATININE 1.3 mg/dL (0.55-1.02); GLUCOSE,RANDOM 139 mg/dL (74-106); SGOT/AST 13 U/L (15-37); SGPT/ALT 18 U/L (12-78)
[2017-11-07 08:26] LABS: ALK PHOS 78 U/L (45-117); BILIRUBIN,TOTAL 0.5 mg/dL (0.2-1.0); TOT PROT 7.5 g/dl (6.4-8.2)
[2017-11-07] MEDS ORDERED: chlordiazePOXIDE 5 MG CAPSULE PO SCH (11:00)
[2017-11-07] MEDS: BUPRENORPHINE/NALOXONE 8 MG/2 MG FILM PACKET SL SCH (11:00)
[2017-11-07] MEDS: PRENATAL VITAMINS W/ FOLIC ACID TABLET (FP) PO SCH (11:28)
[2017-11-07] MEDS: PANTOPRAZOLE 40 MG TABLET (FP) PO SCH (11:28)
[2017-11-07] MEDS: LIDOCAINE 5% TOPICAL PATCH TP SCH (11:29)
--- NOTE | 2017-11-07 11:36 | PN ---
Progress Note (short form) - Note Progress Note: Subjective: The patient was seen and examined at the bedside, she has no complaints at this time. Current Medications Generic Name Dose Route Start Last Admin Trade Name Freq PRN Reason Stop Dose Admin Acetaminophen 650 mg 11/05/17 15:35 11/05/17 15:55 Tylenol - PO 650 mg Q6H PRN Administration FEVER OR PAIN Albuterol Sulfate 2 puff 11/06/17 11:45 11/07/17 08:36 Ventolin Hfa Inhaler - IH Not Given Q6H [facility] Albuterol/Ipratropium 1 amp 11/06/17 18:00 11/07/17 07:08 Duoneb - NEB 1 amp QIDR [facility] Administration Buprenorphine/Naloxone 1 each 11/05/17 12:00 11/07/17 11:00 Suboxone 8mg/2mg Sl Film - SL 1 each DAILY [facility] Administration Clonidine 0.1 mg 11/05/17 12:03 11/05/17 15:55 Catapres - PO 0.1 mg BID PRN Administration HYPERTENSION Clonidine 0.1 mg 11/05/17 22:00 11/06/17 21:22 Catapres - PO 0.1 mg BID [facility] Administration Cyclobenzaprine HCl 10 mg 11/05/17 14:00 11/07/17 06:17 Flexeril - PO 10 mg TID [facility] Administration Diazepam 10 mg 11/05/17 22:00 11/06/17 21:22 Valium - PO 10 mg HS [facility] Administration Levofloxacin 500 mg 11/07/17 18:00 Levaquin - PO 11/07/17 18:01 ONCE ONE Levothyroxine Sodium 125 mcg 11/05/17 07:00 11/07/17 06:50 Synthroid - PO 125 mcg DAILY@0700 [facility] Administration Lidocaine 1 patch 11/05/17 12:15 11/07/17 11:29 Lidoderm Patch - TP 1 patch DAILY [facility] Administration Lisinopril 10 mg 11/05/17 12:00 11/06/17 11:31 Prinivil PO 10 mg DAILY [facility] Administration Methylprednisolone Sodium Succinate 40 mg 11/06/17 13:00 11/07/17 11:29 Solu-Medrol - IVPUSH 40 mg Q8H-IV [facility] Administration Miscellaneous 1 each 11/05/17 22:00 11/06/17 23:01 Lidoderm Patch Removal MC Not Given DAILY@2200 [facility] Naproxen 500 mg 11/05/17 12:04 Naprosyn - PO BID PRN BACK PAIN Ondansetron HCl 4 mg 11/06/17 13:21 Zofran Injection IVPUSH Q6H PRN NAUSEA AND/OR VOMITING Pantoprazole Sodium 40 mg 11/05/17 12:15 11/07/17 11:28 Protonix - PO 40 mg DAILY [facility] Administration Multivit/Folic Acid/Iron 1 tab 11/05/17 12:15 11/07/17 11:28 Vitamins (Sjr) - PO 1 tab DAILY [facility] Administration Thiamine HCl 100 mg 11/05/17 22:00 11/06/17 21:23 Vitamin B1 - PO 100 mg HS [facility] Administration Zolpidem Tartrate 10 mg 11/05/17 11:30 Ambien - PO HS PRN INSOMNIA Objective: Vital Signs Period Temp Pulse Resp BP Sys/Gomez Pulse Ox Last 24 Hr 97.3 F-98.4 F 59-83 16-20 93-116/59-78 96-97 Physical Exam: General: NAD, A&Ox3 Lungs: CTA bilaterally Heart: RRR, S1S2 Abd: Soft, non-tender, non-distended. Normoactive bowel sounds Ext: Warm, well-perfused. 2+ DP/PT bilaterally Neuro: CN 2-12 intact CBCD WBC 11.0 K/mm3 (4.0-10.0) H 11/07/17 06:00 RBC 4.90 M/mm3 (3.60-5.2) 11/07/17 06:00 Hgb 13.6 GM/dL (10.7-15.3) 11/07/17 06:00 Hct 41.1 % (32.4-45.2) 11/07/17 06:00 MCV 83.9 fl (80-96) 11/07/17 06:00 MCHC 33.0 g/dl (32.0-36.0) 11/07/17 06:00 RDW 15.1 % (11.6-15.6) 11/07/17 06:00 Plt Count 304 K/MM3 (134-434) 11/07/17 06:00 MPV 9.0 fl (7.5-11.1) 11/07/17 06:00 CMP Sodium 133 mmol/L (136-145) L 11/07/17 06:00 Potassium 4.3 mmol/L (3.5-5.1) 11/07/17 06:00 Chloride 97 mmol/L (98-107) L 11/07/17 06:00 Carbon Dioxide 29 mmol/L (21-32) 11/07/17 06:00 Anion Gap 7 (8-16) L 11/07/17 06:00 BUN 36 mg/dL (7-18) H 11/07/17 06:00 Creatinine 1.3 mg/dL (0.55-1.02) H 11/07/17 06:00 Creat Clearance w eGFR 42.22 (>60) 11/07/17 06:00 Random Glucose 139 mg/dL (74-106) H D 11/07/17 06:00 Calcium 9.4 mg/dL (8.5-10.1) 11/07/17 06:00 Total Bilirubin 0.5 mg/dL (0.2-1.0) D 11/07/17 06:00 AST 13 U/L (15-37) L D 11/07/17 06:00 ALT 18 U/L (12-78) 11/07/17 06:00 Alkaline Phosphatase 78 U/L (45-117) 11/07/17 06:00 Total Protein 7.5 g/dl (6.4-8.2) 11/07/17 06:00 Albumin 3.5 g/dl (3.4-5.0) 11/07/17 06:00 Microbiology 11/05/17 18:00 Urine - Urine Clean Catch Urine Culture - Final NO GROWTH OBTAINED 11/06/17 18:00 Nasopharyngeal Swab Influenza Types A,B Antigen (CASSANDRA) - Final 11/06/17 18:00 Nasopharyngeal Swab - Final 11/05/17 16:00 Blood - Peripheral Venous Blood Culture - Preliminary NO GROWTH OBTAINED AFTER 24 HOURS, INCUBATION TO CONTINUE FOR 4 DAYS. 11/05/17 16:00 Blood - Peripheral Venous Blood Culture - Preliminary NO GROWTH OBTAINED AFTER 24 HOURS, INCUBATION TO CONTINUE FOR 4 DAYS. 11/05/17 18:00 Urine - Urine Clean Catch Legionella Antigen - Final 11/05/17 18:00 Urine - Urine Clean Catch Streptococcus pneumoniae Antigen ( M - Final Assessment: This is a 57 year old female with PMHx of hypothyroidism, hypertension, IV heroin, asthma, who presented to the ED from [facility] with uncontrolled nausea and vomiting and was found to have hypertensive urgency. Plan: 1) Hypertensive urgency - Resolved - Continue Lisinopril - Continue Clonidine, taper per detox 2) Acute asthma exacerbation - Continue IV Solu-medrol x24 more hours - Duonebs - Appreciate pulmonary consult 3) Acute bronchitis - Continue Levaquin - Afebrile - WBC trending down - Appreciate ID consult 4) Heroin abuse - Continue Suboxone - Continue Clonidine - Appreciate detox consult 5) CKD - Baseline Cr around 1.3 - Continue to trend 6) F/E/N: - Monitor electrolytes - Sodium controlled diet 7) Prophylaxis: - Heparin 5,000u sq tid - OOB ambulating 8) Dispo: - Requires continued inpatient care CODE STATUS: FULL CODE Visit type - Emergency Visit Emergency Visit: Yes ED Registration Date: 11/04/17 Care time: The patient presented to the Emergency Department on the above date and was hospitalized for further evaluation of their emergent condition. - New Patient This patient is new to me today: Yes Date on this admission: 11/07/17 - Critical Care Critical Care patient: No
[2017-11-07] MEDS: LISINOPRIL 10 MG TABLET (FP) PO SCH (11:44)
[2017-11-07] MEDS: cloNIDine HCL 0.1 MG TABLET PO SCH ×2 (11:44→21:21)
--- NOTE | 2017-11-07 13:39 | PN ---
Progress Note, Physician History of Present Illness: pulmonary alert,feeling better,less congested,less wheezes - Current Medication List Current Medications: Active Medications Acetaminophen (Tylenol -) 650 mg PO Q6H PRN PRN Reason: FEVER OR PAIN Last Admin: 11/05/17 15:55 Dose: 650 mg Albuterol Sulfate (Ventolin Hfa Inhaler -) 2 puff IH Q6H [facility] Last Admin: 11/07/17 12:27 Dose: Not Given Albuterol/Ipratropium (Duoneb -) 1 amp NEB QIDR [facility] Last Admin: 11/07/17 11:55 Dose: 1 amp Buprenorphine/Naloxone (Suboxone 8mg/2mg Sl Film -) 1 each SL DAILY [facility] Last Admin: 11/07/17 11:00 Dose: 1 each Clonidine (Catapres -) 0.1 mg PO BID PRN PRN Reason: HYPERTENSION Last Admin: 11/05/17 15:55 Dose: 0.1 mg Clonidine (Catapres -) 0.1 mg PO BID [facility] Last Admin: 11/07/17 11:44 Dose: Not Given Cyclobenzaprine HCl (Flexeril -) 10 mg PO TID [facility] Last Admin: 11/07/17 06:17 Dose: 10 mg Diazepam (Valium -) 10 mg PO HS [facility] Last Admin: 11/06/17 21:22 Dose: 10 mg Heparin Sodium (Porcine) (Heparin -) 5,000 unit SQ TID [facility] Levofloxacin (Levaquin -) 500 mg PO ONCE ONE Stop: 11/07/17 18:01 Levothyroxine Sodium (Synthroid -) 125 mcg PO DAILY@0700 [facility] Last Admin: 11/07/17 06:50 Dose: 125 mcg Lidocaine (Lidoderm Patch -) 1 patch TP DAILY [facility] Last Admin: 11/07/17 11:29 Dose: 1 patch Lisinopril (Prinivil) 10 mg PO DAILY [facility] Last Admin: 11/07/17 11:44 Dose: Not Given Methylprednisolone Sodium Succinate (Solu-Medrol -) 40 mg IVPUSH Q8H-IV [facility] Last Admin: 11/07/17 11:29 Dose: 40 mg Miscellaneous (Lidoderm Patch Removal) 1 each MC DAILY@2200 [facility] Last Admin: 11/06/17 23:01 Dose: Not Given Naproxen (Naprosyn -) 500 mg PO BID PRN PRN Reason: BACK PAIN Ondansetron HCl (Zofran Injection) 4 mg IVPUSH Q6H PRN PRN Reason: NAUSEA AND/OR VOMITING Pantoprazole Sodium (Protonix -) 40 mg PO DAILY [facility] Last Admin: 11/07/17 11:28 Dose: 40 mg Multivit/Folic Acid/Iron ( Vitamins (Sjr) -) 1 tab PO DAILY [facility] Last Admin: 11/07/17 11:28 Dose: 1 tab Thiamine HCl (Vitamin B1 -) 100 mg PO HS [facility] Last Admin: 11/06/17 21:23 Dose: 100 mg Zolpidem Tartrate (Ambien -) 10 mg PO HS PRN PRN Reason: INSOMNIA - Objective Vital Signs: Vital Signs Temperature 97.7 F 11/07/17 10:00 Pulse Rate 78 11/07/17 11:55 Respiratory Rate 16 11/07/17 10:00 Blood Pressure 116/71 11/07/17 10:00 O2 Sat by Pulse Oximetry (%) 97 11/07/17 11:55 Constitutional: Yes: Well Nourished, Calm Eyes: Yes: WNL HENT: Yes: WNL Neck: Yes: WNL Cardiovascular: Yes: Regular Rate and Rhythm, S1, S2 Respiratory: Yes: Wheezes (scattered jamshid wheezes) Gastrointestinal: Yes: Normal Bowel Sounds, Soft Extremities: Yes: WNL Edema: No Labs: CBC, BMP 11/07/17 06:00 11/07/17 06:00 Assessment/Plan Problem List - Problems (1) Acute asthma exacerbation Code(s): J45.901 - UNSPECIFIED ASTHMA WITH (ACUTE) EXACERBATION (2) Acute bronchitis Code(s): J20.9 - ACUTE BRONCHITIS, UNSPECIFIED (3) Withdrawal from opioids Code(s): F11.23 - OPIOID DEPENDENCE WITH WITHDRAWAL (4) Hypertension Code(s): I10 - ESSENTIAL (PRIMARY) HYPERTENSION Qualifiers: Hypertension type: essential hypertension Qualified Code(s): I10 - Essential (primary) hypertension (5) Hypothyroidism Code(s): E03.9 - HYPOTHYROIDISM, UNSPECIFIED Qualifiers: Hypothyroidism type: unspecified Qualified Code(s): E03.9 - Hypothyroidism , unspecified (6) Opioid dependence with withdrawal Code(s): F11.23 - OPIOID DEPENDENCE WITH WITHDRAWAL Assessment/Plan Acute Asthma Exacerbation Acute Bronchitis Opioid Withdrawal HTN Hypothyroidism Smoker - continue medrol - inhaled bronchodilators standing and PRN - agree with antibiotics - withdrawal management - smoking cessation - DVT prophylaxis DR BAUER
[2017-11-07] MEDS: HEPARIN NA (PORCINE) 5,000 UNITS/ML 1ML VIAL SQ SCH ×2 (15:24→21:21)
[2017-11-07] MEDS ORDERED: LEVOFLOXACIN 500 MG TABLET (FP) PO ONE (18:00)
[2017-11-07] MEDS: diazePAM 5 MG TABLET PO SCH (21:20)
[2017-11-07] MEDS: LIDOCAINE PATCH REMOVAL MC SCH (21:22)
[2017-11-07] MEDS: THIAMINE HCL 100 MG TABLET (FP) PO SCH (21:22)
[2017-11-08] MEDS: ALBUTEROL SO4 2.5/IPRATROPIUM 0.5 INH SOL 3 ML VIAL.NEB. NEB SCH ×3 (00:05→12:00)
[2017-11-08] MEDS: methylPREDNISolone NA SUCC 40 MG/1 ML VIAL IVPUSH SCH ×2 (01:25→10:13)
[2017-11-08] MEDS: CYCLOBENZAPRINE HCL 10 MG TABLET (FP) PO SCH (06:39)
[2017-11-08] MEDS: ALBUTEROL SO4 18 GM HFA INHALER IH SCH ×2 (06:40→12:14)
[2017-11-08] MEDS: HEPARIN NA (PORCINE) 5,000 UNITS/ML 1ML VIAL SQ SCH (06:40)
[2017-11-08] MEDS: LEVOTHYROXINE NA 125 MCG TABLET (FP) PO SCH (06:42)
[2017-11-08 07:46] LABS: MCH 27.7 pg (25.7-33.7); MEAN PLT VOLUME 8.6 fl (7.5-11.1); PLATELET COUNT 317 K/MM3 (134-434); RDW 15.6 % (11.6-15.6); WHITE BLOOD COUNT 15.3 K/mm3 (4.0-10.0)
[2017-11-08 08:16] LABS: ALBUMIN 3.5 g/dl (3.4-5.0); ANION GAP 8 (8-16); CALCIUM 9.5 mg/dL (8.5-10.1); CO2 29 mmol/L (21-32); GLUCOSE,RANDOM 123 mg/dL (74-106)
[2017-11-08 08:20] LABS: ALK PHOS 104 U/L (45-117); BILIRUBIN,TOTAL 0.3 mg/dL (0.2-1.0); CREATININE 1.1 mg/dL (0.55-1.02); SGOT/AST 11 U/L (15-37); SGPT/ALT 17 U/L (12-78); TOT PROT 7.4 g/dl (6.4-8.2)
[2017-11-08 10:13] VITALS: BP 130/80; TEMP 98
[2017-11-08] MEDS: PANTOPRAZOLE 40 MG TABLET (FP) PO SCH (10:13)
[2017-11-08] MEDS: LISINOPRIL 10 MG TABLET (FP) PO SCH (10:13)
[2017-11-08] MEDS: PRENATAL VITAMINS W/ FOLIC ACID TABLET (FP) PO SCH (10:13)
[2017-11-08] MEDS: BUPRENORPHINE/NALOXONE 8 MG/2 MG FILM PACKET SL SCH (10:13)
[2017-11-08] MEDS: LIDOCAINE 5% TOPICAL PATCH TP SCH (10:13)
[2017-11-08] MEDS: cloNIDine HCL 0.1 MG TABLET PO SCH (10:13)
--- NOTE | 2017-11-08 10:36 | PN ---
Progress Note (short form) - Note Progress Note: PULMONARY States breathing is improving, close to baseline. Less cough and wheezing. Cough with yellow sputum. No fevers or chills. Last Vital Signs Temp Pulse Resp BP Pulse Ox 98.0 F 94 H 20 130/80 93 L 11/08/17 10:00 11/08/17 10:00 11/08/17 10:00 11/08/17 10:00 11/07/17 22:00 Gen: NAD at rest Heart: RRR Lung: scattered wheeze Abd: soft, nontender Ext: no edema CBC, BMP 11/08/17 06:00 11/08/17 06:00 Active Medications Acetaminophen (Tylenol -) 650 mg PO Q6H PRN PRN Reason: FEVER OR PAIN Last Admin: 11/05/17 15:55 Dose: 650 mg Albuterol Sulfate (Ventolin Hfa Inhaler -) 2 puff IH Q6H [facility] Last Admin: 11/08/17 06:40 Dose: Not Given Albuterol/Ipratropium (Duoneb -) 1 amp NEB QIDR [facility] Last Admin: 11/08/17 06:58 Dose: Not Given Buprenorphine/Naloxone (Suboxone 8mg/2mg Sl Film -) 1 each SL DAILY [facility] Last Admin: 11/08/17 10:13 Dose: 1 each Clonidine (Catapres -) 0.1 mg PO BID PRN PRN Reason: HYPERTENSION Last Admin: 11/05/17 15:55 Dose: 0.1 mg Clonidine (Catapres -) 0.1 mg PO BID [facility] Last Admin: 11/08/17 10:13 Dose: 0.1 mg Cyclobenzaprine HCl (Flexeril -) 10 mg PO TID [facility] Last Admin: 11/08/17 06:39 Dose: 10 mg Diazepam (Valium -) 10 mg PO HS [facility] Last Admin: 11/07/17 21:20 Dose: 10 mg Heparin Sodium (Porcine) (Heparin -) 5,000 unit SQ TID [facility] Last Admin: 11/08/17 06:40 Dose: 5,000 unit Levothyroxine Sodium (Synthroid -) 125 mcg PO DAILY@0700 [facility] Last Admin: 11/08/17 06:42 Dose: 125 mcg Lidocaine (Lidoderm Patch -) 1 patch TP DAILY [facility] Last Admin: 12/14/17 10:13 Dose: 1 patch Lisinopril (Prinivil) 10 mg PO DAILY [facility] Last Admin: 11/08/17 10:13 Dose: 10 mg Methylprednisolone Sodium Succinate (Solu-Medrol -) 40 mg IVPUSH Q8H-IV [facility] Last Admin: 11/08/17 10:13 Dose: 40 mg Miscellaneous (Lidoderm Patch Removal) 1 each MC DAILY@2200 [facility] Last Admin: 11/07/17 21:22 Dose: 1 each Naproxen (Naprosyn -) 500 mg PO BID PRN PRN Reason: BACK PAIN Ondansetron HCl (Zofran Injection) 4 mg IVPUSH Q6H PRN PRN Reason: NAUSEA AND/OR VOMITING Pantoprazole Sodium (Protonix -) 40 mg PO DAILY [facility] Last Admin: 11/08/17 10:13 Dose: 40 mg Multivit/Folic Acid/Iron ( Vitamins (Sjr) -) 1 tab PO DAILY [facility] Last Admin: 11/08/17 10:13 Dose: 1 tab Thiamine HCl (Vitamin B1 -) 100 mg PO HS [facility] Last Admin: 11/07/17 21:22 Dose: 100 mg Zolpidem Tartrate (Ambien -) 10 mg PO HS PRN PRN Reason: INSOMNIA Last Admin: 11/07/17 21:21 Dose: 10 mg A/P Acute Asthma Exacerbation Acute Bronchitis Opioid Withdrawal HTN Hypothyroidism Smoker - can change steroids to PO prednisone 40mg daily and complete 5 days total of steroids - inhaled bronchodilators - withdrawal management - smoking cessation - DVT prophylaxis - can d/c from pulmonary standpoint Problem List - Problems (1) Acute asthma exacerbation Code(s): J45.901 - UNSPECIFIED ASTHMA WITH (ACUTE) EXACERBATION (2) Acute bronchitis Code(s): J20.9 - ACUTE BRONCHITIS, UNSPECIFIED (3) Withdrawal from opioids Code(s): F11.23 - OPIOID DEPENDENCE WITH WITHDRAWAL (4) Hypertension Code(s): I10 - ESSENTIAL (PRIMARY) HYPERTENSION Qualifiers: Hypertension type: essential hypertension Qualified Code(s): I10 - Essential (primary) hypertension (5) Hypothyroidism Code(s): E03.9 - HYPOTHYROIDISM, UNSPECIFIED Qualifiers: Hypothyroidism type: unspecified Qualified Code(s): E03.9 - Hypothyroidism , unspecified (6) Opioid dependence with withdrawal Code(s): F11.23 - OPIOID DEPENDENCE WITH WITHDRAWAL
[2017-11-08] MEDS ORDERED: LEVOFLOXACIN 500 MG TABLET (FP) PO SCH (11:00)
--- NOTE | 2017-11-08 11:39 | DS ---
Physical Examination Vital Signs: Vital Signs Temperature 98.0 F 11/08/17 10:00 Pulse Rate 94 H 11/08/17 10:00 Respiratory Rate 20 11/08/17 10:00 Blood Pressure 130/80 11/08/17 10:00 O2 Sat by Pulse Oximetry (%) 93 L 11/07/17 22:00 Labs: CBC, BMP 11/08/17 06:00 11/08/17 06:00 Discharge Summary Reason For Visit: HYPERTENSIVE URGENCY,OPIOD WITHDRAWAL,VOMITING Current Active Problems Acute asthma exacerbation (Acute) Acute bronchitis (Acute) Benzodiazepine dependence (Acute) Hypertensive urgency (Acute) Vomiting (Acute) Withdrawal from opioids (Acute) Condition: Improved - Instructions Diet, Activity, Other Instructions: Please return to the ED with new, persistent, or worsening symptoms. Please follow-up with providers as indicated. You are being discharged to [facility] rehab. Referrals: Nikita Arthur MD [Staff Physician] - Ortiz Perkins MD [Staff Physician] - 1 Week Zeyad Porter MD [Staff Physician] - (Please follow-up with Dr. Porter within 1 week for further management of your asthma) Disposition: TRANSFER ACUTE CARE/OTHER HOSP - Home Medications Comprehensive Discharge Medication List: Ambulatory Orders Buprenorphine/Naloxone [Suboxone 8Mg/2Mg Sl Film -] 1 each SL BID 08/27/17 Albuterol Sulfate Inhaler - [Ventolin HFA Inhaler -] 2 inh PO Q4H PRN #1 inh Levothyroxine [Synthroid -] 125 mcg PO DAILY@0700 #30 tablet 09/10/17 Acetaminophen [Tylenol .Regular Strength -] 650 mg PO Q6H PRN tablet 11/08/17 Albuterol 2.5/Ipratropium 0.5 [Duoneb -] 1 amp NEB QIDR amp 11/08/17 Clonidine HCl [Catapres -] 0.1 mg PO BID tablet 11/08/17 Cyclobenzaprine HCl [Flexeril -] 10 mg PO TID tablet 11/08/17 Diazepam [Valium] 10 mg PO HS tablet MDD 10mg 11/08/17 Levofloxacin [Levaquin -] 500 mg PO DAILY@0600 tablet 11/08/17 Lidocaine 5% Patch [Lidoderm -] 1 patch TP DAILY patch 11/08/17 Lidocaine Patch Removal [Lidoderm Patch Removal] 1 each MC DAILY@2200 each Lisinopril [Prinivil] 10 mg PO DAILY tablet 11/08/17 Naproxen [Naprosyn -] 500 mg PO BID PRN tablet 11/08/17 Pantoprazole Sodium [Protonix -] 40 mg PO DAILY tablet.ec 11/08/17 Prednisone [Deltasone -] 40 mg PO DAILY tablet 11/08/17 Vitamins (Sjr) - 1 tab PO DAILY tablet 11/08/17 Thiamine HCl [Vitamin B1 -] 100 mg PO HS tablet 11/08/17 - Discharge Referral Referred to [facility] No
[2017-11-08 12:56] VITALS: PULSE 90
[2017-11-09] MEDS ORDERED: predniSONE 20 MG TABLET (UD) PO SCH (10:00)
== END 2017-11-08 13:33 | disposition short-term general hospital (02) | DRG 199 ==
LOC: JER 15:57 → JERBED 23:31 → J7W 11-05 00:52
PROVIDERS: ADMIT Internal Medicine; ATTEND Registered Nurse
PROC: HZ2ZZZZ Detoxification Services for Substance Abuse Treatment (ICD-10-PCS; principal; 2017-11-05)
DX: I16.0 Hypertensive urgency (principal); E03.9 Hypothyroidism, unspecified; N17.9 Acute kidney failure, unspecified; D64.9 Anemia, unspecified; J20.9 Acute bronchitis, unspecified; J44.9 Chronic obstructive pulmonary disease, unspecified; K21.9 Gastro-esophageal reflux disease without esophagitis; F17.200 Nicotine dependence, unspecified, uncomplicated; R11.14 Bilious vomiting; F11.23 Opioid dependence with withdrawal; N83.202 Unspecified ovarian cyst, left side; B18.2 Chronic viral hepatitis C; F19.94 Other psychoactive substance use, unspecified with psychoactive substance-induced mood disorder; F31.81 Bipolar II disorder; Z79.899 Other long term (current) drug therapy
CPT/HCPCS: 36415; 71010-TC; 71250-TC; 74177-TC; 76856-TC; 80048; 80053; 83605; 83690; 83735; 84100; 84443; 85025; 85027; 87040; 87070; 87086; 87205; 87389; 87804; 87899; 93005; 93010; 93306-TC; 94640; 99284-25; J1644

== ENCOUNTER 2017-11-08 13:57 | Inpatient (IN) | payer OTHER ==
[2017-11-08 14:22] VITALS: BMI 26.7
--- NOTE | 2017-11-08 14:43 | HP ---
Admission ROS S - [facility] Chief Complaint: detox with suboxone at [facility], was on suboxone but relapsed x 1 month 2 bags/d Allergies/Adverse Reactions: Allergies Allergy/AdvReac Type Severity Reaction Status Date / Time No Known Allergies Allergy Verified 11/08/17 14:35 - Ebola screening Have you traveled outside of the country in the last 21 days: No (N) Have you had contact with anyone from an Ebola affected area: No Have you been sick,other than usual withdrawal symptoms: No Do you have a fever: No - Review of Systems Constitutional: No Symptoms Reported EENT: reports: No Symptoms Reported Respiratory: reports: No Symptoms reported Cardiac: reports: No Symptoms Reported GI: reports: No Symptoms Reported : reports: No Symptoms Reported Musculoskeletal: reports: No Symptoms Reported Integumentary: reports: No Symptoms Reported Neuro: reports: No Symptoms reported Endocrine: reports: No Symptoms Reported Hematology: reports: No Symptoms Reported Psychiatric: reports: No Sypmtoms Reported Patient History - Patient Medical History Hx Anemia: Yes (was given iron pills) Hx Asthma: Yes (Pt is on MDI.) Hx Chronic Obstructive Pulmonary Disease (COPD): Yes Hx Cancer: No Hx Cardiac Disorders: No Hx Congestive Heart Failure: No Hx Hypertension: Yes (on meds.) Hx Hypercholesterolemia: No Hx Pacemaker: No HX Cerebrovascular Accident: No Hx Seizures: No Hx Dementia: No Hx Diabetes: No Hx Gastrointestinal Disorders: Yes (Hx of acid reflux.) Hx Liver Disease: No Hx Genitourinary Disorders: No Hx Sexually Transmitted Disorders: No Hx Renal Disease (ESRD): No Hx Thyroid Disease: Yes (HYPOTHYROIDISM -ON SYNTHROID) Hx Human Immunodeficiency Virus (HIV): No (NEGATIVE HX, LAST 03/09/2017) Hx Hepatitis C: Yes (treated with SVR 2 years ago) Hx Depression: Yes Hx Suicide Attempt: Yes (Tried tp overdose 20 yrs ago. Attempts in 1996 & 1997) Hx Bipolar Disorder: Yes Hx Schizophrenia: No - Patient Surgical History Past Surgical History: Yes Hx Neurologic Surgery: No Hx Cataract Extraction: No Hx Cardiac Surgery: No Hx Lung Surgery: No Hx Breast Surgery: No Hx Breast Biopsy: No Hx Abdominal Surgery: No Hx Appendectomy: Yes (7 or 8 yo) Hx Cholecystectomy: No Hx Genitourinary Surgery: No Hx Section: No Hx Orthopedic Surgery: No Hx Hysterectomy: No Anesthesia Reaction: No - PPD History Date: 05/12/17 Results: 0 MM - Reproductive History Last Menstrual Period: 12/30/11 - Smoking Cessation Smoking history: Current every day smoker Have you smoked in the past 12 months: Yes Aproximately how many cigarettes per day: 4 If you are a former smoker, when did you quit?: february 2014 Cigars Per Day: 0 Hx Chewing Tobacco Use: No Initiated information on smoking cessation: Yes 'Breaking Loose' booklet given: 11/08/17 Family Disease History - Family Disease History Family Disease History: Diabetes: Father (), Mother (depression;HTN, ), Sister (depression; liver and kidney problems), Heart Disease: Mother , Sister, Other: Father, Mother, Sister Admission Physical Exam BHS - Vital Signs Vital Signs: Vital Signs - 24 hr 11/08/17 14:18 Temperature 96.7 F L Pulse Rate 88 Respiratory 16 Rate Blood Pressure 102/69 - Physical General Appearance: Yes: Within Normal Limits HEENTM: Yes: EOMI Respiratory: Yes: Within Normal Limits Neck: Yes: No masses,lesions,Nodules Breast: Yes: Breast Exam Deferred Cardiology: Yes: Regular Rhythm, Regular Rate, S1, S2 Abdominal: Yes: Normal Bowel Sounds, Non Tender, Flat, Soft Genitourinary: Yes: Within Normal Limits Back: Yes: Normal Inspection Musculoskeletal: Yes: Within Normal Limits, full range of Motion, Gait Steady Extremities: Yes: Within Normal Limits, Normal Capillary Refill, Normal Inspection, Normal Range of Motion, Non-Tender Neurological: Yes: job analyst II-XII NML intact, Fully Oriented, Motor Strength 5/5, Normal Mood/Affect Integumentary: Yes: Normal Color Lymphatic: Yes: Within Normal Limits - Diagnostic (1) Acute asthma exacerbation Current Visit: No Status: Acute (2) Acute bronchitis Current Visit: No Status: Acute (3) Benzodiazepine dependence Current Visit: No Status: Acute (4) Nicotine dependence Current Visit: No Status: Acute (5) Anxiety Current Visit: No Status: Chronic (6) COPD (chronic obstructive pulmonary disease) Current Visit: No Status: Chronic Qualifiers: Chronic bronchitis type: unspecified (7) Hypertension Current Visit: No Status: Chronic Qualifiers: Hypertension type: essential hypertension Qualified Code(s): I10 - Essential (primary) hypertension (8) Major depression Current Visit: No Status: Suspected Comment: Pt. self reports. (9) Hep C w/o coma, chronic Current Visit: No Status: Resolved BHS Breath Alcohol Content Breath Alcohol Content: 0
[2017-11-08] MEDS ORDERED: IBUPROFEN 400 MG TABLET (FP) PO PRN (14:45)
[2017-11-08] MEDS ORDERED: MAGNESIUM CITRATE 300 ML BOTTLE PO PRN (14:45)
[2017-11-08] MEDS ORDERED: NICOTINE POLACRILEX 2 MG GUM BUC PRN (14:45)
[2017-11-08] MEDS ORDERED: MENTHOL/PHENOL 1 EACH UD MM PRN (14:45)
[2017-11-08] MEDS ORDERED: MAGNESIUM HYDROX 2400MG/30ML ORAL SUSPENSION 30 ML CUP PO PRN (14:45)
[2017-11-08] MEDS ORDERED: LOPERAMIDE HCL 2 MG CAPSULE PO PRN (14:45)
[2017-11-08] MEDS ORDERED: P-EPHED 60MG/TRIPROLIDI 2.5MG TABLET PO PRN (14:45)
[2017-11-08] MEDS ORDERED: guaiFENesin/D-METHORPHAN HB 10 ML UNIT-DOSE CUPS PO PRN (14:45)
[2017-11-08] MEDS ORDERED: ACETAMINOPHEN 325 MG TABLET (FP) PO PRN (14:45)
[2017-11-08] MEDS ORDERED: MAG HYDROX/AL HYDROX/SIMETH 30 ML UNIT-DOSE CUP PO PRN (14:45)
[2017-11-08] MEDS ORDERED: ALBUTEROL SO4 18 GM HFA INHALER IH PRN (14:46)
[2017-11-08] MEDS: THIAMINE HCL 100 MG TABLET (FP) PO SCH (21:57)
[2017-11-08] MEDS: BUPRENORPHINE/NALOXONE 2 MG/0.5 MG FILM PACKET SL SCH (21:57)
[2017-11-08] MEDS: cloNIDine HCL 0.1 MG TABLET PO SCH (21:57)
[2017-11-09] MEDS: LEVOTHYROXINE 100 MCG, LEVOTHYROXINE 25 MCG PO SCH (06:29)
[2017-11-09] MEDS ORDERED: LEVOTHYROXINE NA 100 MCG TABLET (FP) PO SCH (07:00)
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
[2017-11-09] MEDS: LISINOPRIL 10 MG TABLET (FP) PO SCH (10:35)
[2017-11-09] MEDS: PRENATAL VITAMINS W/ FOLIC ACID TABLET (FP) PO SCH (10:35)
[2017-11-09] MEDS: cloNIDine HCL 0.1 MG TABLET PO SCH ×2 (10:35→22:09)
[2017-11-09] MEDS: predniSONE 20 MG TABLET (UD) PO SCH (10:36)
[2017-11-09] MEDS: PANTOPRAZOLE 40 MG TABLET (FP) PO SCH (10:36)
[2017-11-09] MEDS: NICOTINE 21 MG/24 HOURS TOPICAL PATCH TD SCH (10:36)
[2017-11-09] MEDS: BUPRENORPHINE/NALOXONE 2 MG/0.5 MG FILM PACKET SL SCH ×2 (10:36→22:09)
[2017-11-09] MEDS: ESCITALOPRAM OXALATE 20 MG TABLET (FP) PO SCH (10:37)
[2017-11-09] MEDS: THIAMINE HCL 100 MG TABLET (FP) PO SCH (22:09)
[2017-11-09] MEDS: QUEtiapine FUMARATE 100 MG TABLET (FP) PO SCH (22:11)
[2017-11-09] MEDS: COLLOIDAL OATMEAL 1 BAR EACH TP PRN (22:14)
[2017-11-10] MEDS ORDERED: LEVOTHYROXINE NA 100 MCG TABLET (FP) ONE (06:55)
[2017-11-10] MEDS ORDERED: LEVOTHYROXINE NA 25 MCG TABLET (FP) ONE (06:55)
[2017-11-10] MEDS: LEVOTHYROXINE 100 MCG, LEVOTHYROXINE 25 MCG PO SCH (06:56)
[2017-11-10] MEDS: LISINOPRIL 10 MG TABLET (FP) PO SCH (10:11)
[2017-11-10] MEDS: cloNIDine HCL 0.1 MG TABLET PO SCH ×2 (10:11→21:52)
[2017-11-10] MEDS: PANTOPRAZOLE 40 MG TABLET (FP) PO SCH (10:11)
[2017-11-10] MEDS: ESCITALOPRAM OXALATE 20 MG TABLET (FP) PO SCH (10:11)
[2017-11-10] MEDS: PRENATAL VITAMINS W/ FOLIC ACID TABLET (FP) PO SCH (10:11)
[2017-11-10] MEDS: predniSONE 20 MG TABLET (UD) PO SCH (10:11)
[2017-11-10] MEDS: NICOTINE 21 MG/24 HOURS TOPICAL PATCH TD SCH (10:12)
[2017-11-10] MEDS: BUPRENORPHINE/NALOXONE 2 MG/0.5 MG FILM PACKET SL SCH ×2 (10:12→21:53)
[2017-11-10] MEDS: THIAMINE HCL 100 MG TABLET (FP) PO SCH (21:52)
[2017-11-10] MEDS: QUEtiapine FUMARATE 100 MG TABLET (FP) PO SCH (21:53)
[2017-11-11] MEDS ORDERED: LEVOTHYROXINE NA 100 MCG TABLET (FP) ONE (03:31)
[2017-11-11] MEDS ORDERED: LEVOTHYROXINE NA 25 MCG TABLET (FP) ONE (03:31)
[2017-11-11] MEDS: LEVOTHYROXINE 100 MCG, LEVOTHYROXINE 25 MCG PO SCH (06:39)
[2017-11-11] MEDS: cloNIDine HCL 0.1 MG TABLET PO SCH ×2 (09:51→21:56)
[2017-11-11] MEDS: PRENATAL VITAMINS W/ FOLIC ACID TABLET (FP) PO SCH (09:52)
[2017-11-11] MEDS: NICOTINE 21 MG/24 HOURS TOPICAL PATCH TD SCH (09:52)
[2017-11-11] MEDS: predniSONE 20 MG TABLET (UD) PO SCH (09:52)
[2017-11-11] MEDS: LISINOPRIL 10 MG TABLET (FP) PO SCH (09:52)
[2017-11-11] MEDS: PANTOPRAZOLE 40 MG TABLET (FP) PO SCH (09:52)
[2017-11-11] MEDS: ESCITALOPRAM OXALATE 20 MG TABLET (FP) PO SCH (09:52)
[2017-11-11] MEDS: BUPRENORPHINE/NALOXONE 2 MG/0.5 MG FILM PACKET SL SCH ×2 (09:53→21:57)
[2017-11-11] MEDS: THIAMINE HCL 100 MG TABLET (FP) PO SCH (21:56)
[2017-11-11] MEDS: QUEtiapine FUMARATE 100 MG TABLET (FP) PO SCH (21:56)
[2017-11-12] MEDS ORDERED: LEVOTHYROXINE NA 100 MCG TABLET (FP) ONE (03:14)
[2017-11-12] MEDS ORDERED: LEVOTHYROXINE NA 25 MCG TABLET (FP) ONE (03:14)
[2017-11-12] MEDS: LEVOTHYROXINE 100 MCG, LEVOTHYROXINE 25 MCG PO SCH (06:29)
[2017-11-12] MEDS: cloNIDine HCL 0.1 MG TABLET PO SCH ×2 (10:19→21:46)
[2017-11-12] MEDS: PRENATAL VITAMINS W/ FOLIC ACID TABLET (FP) PO SCH (10:19)
[2017-11-12] MEDS: ESCITALOPRAM OXALATE 20 MG TABLET (FP) PO SCH (10:19)
[2017-11-12] MEDS: PANTOPRAZOLE 40 MG TABLET (FP) PO SCH (10:19)
[2017-11-12] MEDS: predniSONE 20 MG TABLET (UD) PO SCH (10:19)
[2017-11-12] MEDS: LISINOPRIL 10 MG TABLET (FP) PO SCH (10:19)
[2017-11-12] MEDS: BUPRENORPHINE/NALOXONE 2 MG/0.5 MG FILM PACKET SL SCH ×2 (10:20→21:46)
[2017-11-12] MEDS: NICOTINE 21 MG/24 HOURS TOPICAL PATCH TD SCH (10:22)
[2017-11-12] MEDS: QUEtiapine FUMARATE 100 MG TABLET (FP) PO SCH (21:46)
[2017-11-12] MEDS: THIAMINE HCL 100 MG TABLET (FP) PO SCH (21:46)
[2017-11-13] MEDS ORDERED: LEVOTHYROXINE NA 100 MCG TABLET (FP) ONE (05:52)
[2017-11-13] MEDS ORDERED: LEVOTHYROXINE NA 25 MCG TABLET (FP) ONE (05:52)
[2017-11-13] MEDS: LEVOTHYROXINE 100 MCG, LEVOTHYROXINE 25 MCG PO SCH (06:27)
[2017-11-13] MEDS: cloNIDine HCL 0.1 MG TABLET PO SCH ×2 (10:39→21:55)
[2017-11-13] MEDS: NICOTINE 21 MG/24 HOURS TOPICAL PATCH TD SCH (10:39)
[2017-11-13] MEDS: LISINOPRIL 10 MG TABLET (FP) PO SCH (10:40)
[2017-11-13] MEDS: PRENATAL VITAMINS W/ FOLIC ACID TABLET (FP) PO SCH (10:40)
[2017-11-13] MEDS: ESCITALOPRAM OXALATE 20 MG TABLET (FP) PO SCH (10:40)
[2017-11-13] MEDS: PANTOPRAZOLE 40 MG TABLET (FP) PO SCH (10:40)
[2017-11-13] MEDS: predniSONE 20 MG TABLET (UD) PO SCH (10:40)
[2017-11-13] MEDS: BUPRENORPHINE/NALOXONE 2 MG/0.5 MG FILM PACKET SL SCH ×2 (10:41→21:55)
[2017-11-13] MEDS: QUEtiapine FUMARATE 100 MG TABLET (FP) PO SCH (21:55)
[2017-11-13] MEDS: THIAMINE HCL 100 MG TABLET (FP) PO SCH (21:55)
[2017-11-14] MEDS ORDERED: LEVOTHYROXINE NA 100 MCG TABLET (FP) ONE (05:35)
[2017-11-14] MEDS ORDERED: LEVOTHYROXINE NA 25 MCG TABLET (FP) ONE (05:35)
[2017-11-14] MEDS: LEVOTHYROXINE 100 MCG, LEVOTHYROXINE 25 MCG PO SCH (06:24)
[2017-11-14] MEDS: cloNIDine HCL 0.1 MG TABLET PO SCH (10:16)
[2017-11-14] MEDS: PRENATAL VITAMINS W/ FOLIC ACID TABLET (FP) PO SCH (10:17)
[2017-11-14] MEDS: ESCITALOPRAM OXALATE 20 MG TABLET (FP) PO SCH (10:17)
[2017-11-14] MEDS: PANTOPRAZOLE 40 MG TABLET (FP) PO SCH (10:17)
[2017-11-14] MEDS: predniSONE 20 MG TABLET (UD) PO SCH (10:17)
[2017-11-14] MEDS: LISINOPRIL 10 MG TABLET (FP) PO SCH (10:17)
[2017-11-14] MEDS: NICOTINE 21 MG/24 HOURS TOPICAL PATCH TD SCH (10:18)
[2017-11-14] MEDS: BUPRENORPHINE/NALOXONE 2 MG/0.5 MG FILM PACKET SL SCH ×2 (10:18→21:46)
--- NOTE | 2017-11-14 12:00 | PN ---
S Progress Note (SOAP) Subjective: c/o burning on urination, u/a wnl but will repeat would like to stay on current suboxone odse, but asthma stable will decrease prednisone slowly Objective: 11/14/17 12:00 Vital Signs - 8 hr 11/14/17 11/14/17 07:07 09:25 Temperature 97.8 F Pulse Rate 94 H 96 H Respiratory 18 Rate Blood Pressure 137/86 142/88 labs reviewed Assessment: 11/14/17 12:00 repeat u/a, pred taper started cont suboxone
[2017-11-14 17:45] LABS: URINE APPEARANCE CLEAR; URINE BILIRUBIN NEGATIVE (NEGATIVE); URINE BLOOD NEGATIVE (NEGATIVE); URINE COLOR LTYELLOW; URINE GLUCOSE (UA) NEGATIVE (NEGATIVE); URINE KETONE NEGATIVE (NEGATIVE); URINE LEUK ESTERASE 1+ (NEGATIVE); URINE NITRITE NEGATIVE (NEGATIVE); URINE PROTEIN NEGATIVE (NEGATIVE); URINE UROBILINOGEN NEGATIVE mg/dL (0.2-1.0)
[2017-11-14] MEDS: THIAMINE HCL 100 MG TABLET (FP) PO SCH (21:47)
[2017-11-14] MEDS: QUEtiapine FUMARATE 100 MG TABLET (FP) PO SCH (21:47)
[2017-11-15] MEDS ORDERED: LEVOTHYROXINE NA 100 MCG TABLET (FP) ONE (04:22)
[2017-11-15] MEDS ORDERED: LEVOTHYROXINE NA 25 MCG TABLET (FP) ONE (04:23)
[2017-11-15] MEDS: LEVOTHYROXINE 100 MCG, LEVOTHYROXINE 25 MCG PO SCH (06:05)
[2017-11-15] MEDS: PRENATAL VITAMINS W/ FOLIC ACID TABLET (FP) PO SCH (11:27)
[2017-11-15] MEDS: ESCITALOPRAM OXALATE 20 MG TABLET (FP) PO SCH (11:27)
[2017-11-15] MEDS: LISINOPRIL 10 MG TABLET (FP) PO SCH (11:28)
[2017-11-15] MEDS: PANTOPRAZOLE 40 MG TABLET (FP) PO SCH (11:28)
[2017-11-15] MEDS: predniSONE 10 MG TABLET (UD) PO SCH (11:29)
[2017-11-15] MEDS: BUPRENORPHINE/NALOXONE 2 MG/0.5 MG FILM PACKET SL SCH ×2 (11:31→21:49)
[2017-11-15] MEDS: NICOTINE 21 MG/24 HOURS TOPICAL PATCH TD SCH (11:33)
--- NOTE | 2017-11-15 11:47 | PN ---
Progress Note (short form) - Note Progress Note: [facility]: lisinopril 10mg qd levo 125mcg qd ventolin subxone 8/2films BID clonazipam 0.5mg TID lexapro 20mg qd seroqual 100mg qd nitrofurotion 1cap q6hr 28pills, took it for 3 days in jul 2017 c/o urinary hesitation, mild dysuria and scant hematuria today. was on catapres, which has been discontinued, now has elevated BP on vital signs denies chest pain, headache, dizziness, cough, sob, abdominal pain, fever Plan: increase lisinopril dose to 20mg po daily for better BP control urine culture ordered to direct abx treatment Discussed with Dr. Arthur Problem List - Problems (1) Opioid dependence on agonist therapy Code(s): F11.20 - OPIOID DEPENDENCE, UNCOMPLICATED (2) Nicotine dependence Code(s): F17.200 - NICOTINE DEPENDENCE, UNSPECIFIED, UNCOMPLICATED (3) Hypertension Code(s): I10 - ESSENTIAL (PRIMARY) HYPERTENSION Qualifiers: Hypertension type: essential hypertension Qualified Code(s): I10 - Essential (primary) hypertension (4) Depression Code(s): F32.9 - MAJOR DEPRESSIVE DISORDER, SINGLE EPISODE, UNSPECIFIED Qualifiers: Depression Type: dysthymia Qualified Code(s): F34.1 - Dysthymic disorder (5) Major depression Code(s): F32.9 - MAJOR DEPRESSIVE DISORDER, SINGLE EPISODE, UNSPECIFIED
[2017-11-15] MEDS ORDERED: LISINOPRIL 10 MG TABLET (FP) PO ONE (14:39)
[2017-11-15] MEDS: THIAMINE HCL 100 MG TABLET (FP) PO SCH (21:49)
[2017-11-15] MEDS: QUEtiapine FUMARATE 100 MG TABLET (FP) PO SCH (21:49)
[2017-11-16] MEDS ORDERED: LEVOTHYROXINE NA 25 MCG TABLET (FP) ONE (03:12)
[2017-11-16] MEDS ORDERED: LEVOTHYROXINE NA 100 MCG TABLET (FP) ONE (03:12)
[2017-11-16] MEDS: LEVOTHYROXINE 100 MCG, LEVOTHYROXINE 25 MCG PO SCH (06:37)
[2017-11-16] MEDS ORDERED: LISINOPRIL 20 MG TABLET (FP) PO ONE ×2 (07:00→12:00)
[2017-11-16] MEDS ORDERED: LISINOPRIL 20 MG TABLET (FP) PO SCH (10:00)
[2017-11-16] MEDS: BUPRENORPHINE/NALOXONE 2 MG/0.5 MG FILM PACKET SL SCH (10:46)
[2017-11-16] MEDS: PRENATAL VITAMINS W/ FOLIC ACID TABLET (FP) PO SCH (10:46)
[2017-11-16] MEDS: predniSONE 10 MG TABLET (UD) PO SCH (10:46)
[2017-11-16] MEDS: ESCITALOPRAM OXALATE 20 MG TABLET (FP) PO SCH (10:46)
[2017-11-16] MEDS: PANTOPRAZOLE 40 MG TABLET (FP) PO SCH (10:47)
[2017-11-16] MEDS: NICOTINE 21 MG/24 HOURS TOPICAL PATCH TD SCH (10:51)
--- NOTE | 2017-11-16 11:10 | PN ---
Progress Note (short form) - Note Progress Note: c/o nonradiating diffuse headache this morning, which was partially relieved with a nap and after receiving lisinopril 20mg at 7am. BP was elevated this morning during the episode. dysuria improved, has been drinking more water Vital Signs - 24 hr 11/15/17 11/16/17 11/16/17 22:00 03:30 07:31 Temperature 97.9 F Pulse Rate 85 96 H Respiratory 16 16 Rate Blood Pressure 183/95 174/93 denies chest pain, dizziness, cough, sob, abdominal pain, fever, palpitations, lightheadedness, blurry vision, eye pain PE: HEENT: oropharnyx without erythema,exudates, nares patent, eomi, jeyson CV: tachycardia, s1, s2, without mrg, regular rhythm lungs: CTAB abd: soft, nd/nt Ext: no edema in b/l LE, 2+ radial pulses b/l Plan: elevated BP likely due to discontinuation of catapres vs protracted withdrawal sx vs uncontrolled hypertension increase lisinopril dose to 40mg po daily for better BP control stat dose of norvasc 5mg po this morning, continue norvasc tomorrow, pt may likely need 2 agents to control BP urine culture pending to direct abx treatment if dysuria does not improve discussed with Dr. Arthur Problem List - Problems (1) Opioid dependence on agonist therapy Code(s): F11.20 - OPIOID DEPENDENCE, UNCOMPLICATED (2) Nicotine dependence Code(s): F17.200 - NICOTINE DEPENDENCE, UNSPECIFIED, UNCOMPLICATED (3) Hypertension Code(s): I10 - ESSENTIAL (PRIMARY) HYPERTENSION Qualifiers: Hypertension type: essential hypertension Qualified Code(s): I10 - Essential (primary) hypertension (4) Depression Code(s): F32.9 - MAJOR DEPRESSIVE DISORDER, SINGLE EPISODE, UNSPECIFIED Qualifiers: Depression Type: dysthymia Qualified Code(s): F34.1 - Dysthymic disorder (5) Major depression Code(s): F32.9 - MAJOR DEPRESSIVE DISORDER, SINGLE EPISODE, UNSPECIFIED
[2017-11-16] MEDS ORDERED: amLODIPine BESYLATE 5 MG TABLET (FP) PO ONE (12:00)
[2017-11-16] MEDS: QUEtiapine FUMARATE 100 MG TABLET (FP) PO SCH (21:56)
[2017-11-16] MEDS: THIAMINE HCL 100 MG TABLET (FP) PO SCH (21:57)
[2017-11-16] MEDS: cloNIDine HCL 0.1 MG TABLET PO SCH (21:57)
[2017-11-16] MEDS: hydrOXYzine PAMOATE 50 MG CAPSULE (FP) PO PRN (21:58)
[2017-11-17] MEDS: hydrOXYzine PAMOATE 50 MG CAPSULE (FP) PO PRN ×2 (04:10→21:50)
[2017-11-17] MEDS ORDERED: LEVOTHYROXINE NA 100 MCG TABLET (FP) ONE (06:00)
[2017-11-17] MEDS ORDERED: LEVOTHYROXINE NA 25 MCG TABLET (FP) ONE (06:00)
[2017-11-17] MEDS: LEVOTHYROXINE 100 MCG, LEVOTHYROXINE 25 MCG PO SCH (06:38)
[2017-11-17] MEDS: COLLOIDAL OATMEAL 1 BAR EACH TP PRN (06:54)
[2017-11-17] MEDS: BUPRENORPHINE HCL/NALOXONE 12 MG-3 MG SL FILM PACKET SL SCH (10:03)
[2017-11-17] MEDS: amLODIPine BESYLATE 10 MG TABLET (FP) PO SCH (10:03)
[2017-11-17] MEDS: NICOTINE 21 MG/24 HOURS TOPICAL PATCH TD SCH (10:03)
[2017-11-17] MEDS: PANTOPRAZOLE 40 MG TABLET (FP) PO SCH (10:03)
[2017-11-17] MEDS: ESCITALOPRAM OXALATE 20 MG TABLET (FP) PO SCH (10:03)
[2017-11-17] MEDS: predniSONE 10 MG TABLET (UD) PO SCH (10:03)
[2017-11-17] MEDS: PRENATAL VITAMINS W/ FOLIC ACID TABLET (FP) PO SCH (10:03)
[2017-11-17] MEDS: cloNIDine HCL 0.1 MG TABLET PO SCH ×2 (10:04→21:48)
[2017-11-17] MEDS: LISINOPRIL 20 MG TABLET (FP) PO SCH (10:04)
[2017-11-17] MEDS ORDERED: PT OWN MED DRAWER 7, Y5N ONE (10:21)
[2017-11-17] MEDS: QUEtiapine FUMARATE 100 MG TABLET (FP) PO SCH (21:48)
[2017-11-17] MEDS: THIAMINE HCL 100 MG TABLET (FP) PO SCH (21:48)
[2017-11-18] MEDS: hydrOXYzine PAMOATE 50 MG CAPSULE (FP) PO PRN (01:54)
[2017-11-18] MEDS ORDERED: LEVOTHYROXINE NA 100 MCG TABLET (FP) ONE (05:58)
[2017-11-18] MEDS ORDERED: LEVOTHYROXINE NA 25 MCG TABLET (FP) ONE (05:58)
[2017-11-18] MEDS: LEVOTHYROXINE 100 MCG, LEVOTHYROXINE 25 MCG PO SCH (06:42)
[2017-11-18] MEDS ORDERED: PT OWN MED DRAWER 7, Y5N ONE (08:39)
[2017-11-18] MEDS: BUPRENORPHINE HCL/NALOXONE 12 MG-3 MG SL FILM PACKET SL SCH (10:19)
[2017-11-18] MEDS: predniSONE 10 MG TABLET (UD) PO SCH (10:19)
[2017-11-18] MEDS: NICOTINE 21 MG/24 HOURS TOPICAL PATCH TD SCH (10:19)
[2017-11-18] MEDS: LISINOPRIL 20 MG TABLET (FP) PO SCH (10:20)
[2017-11-18] MEDS: ESCITALOPRAM OXALATE 20 MG TABLET (FP) PO SCH (10:21)
[2017-11-18] MEDS: PANTOPRAZOLE 40 MG TABLET (FP) PO SCH (10:21)
[2017-11-18] MEDS: PRENATAL VITAMINS W/ FOLIC ACID TABLET (FP) PO SCH (10:21)
[2017-11-18] MEDS: cloNIDine HCL 0.1 MG TABLET PO SCH ×2 (10:21→22:02)
[2017-11-18] MEDS: amLODIPine BESYLATE 10 MG TABLET (FP) PO SCH (10:22)
[2017-11-18] MEDS: BUPRENORPHINE/NALOXONE 8 MG/2 MG FILM PACKET SL SCH ×2 (12:45→22:02)
[2017-11-18] MEDS: THIAMINE HCL 100 MG TABLET (FP) PO SCH (22:02)
[2017-11-18] MEDS: QUEtiapine FUMARATE 100 MG TABLET (FP) PO SCH (22:02)
[2017-11-19] MEDS: hydrOXYzine PAMOATE 50 MG CAPSULE (FP) PO PRN (04:55)
[2017-11-19] MEDS ORDERED: LEVOTHYROXINE NA 25 MCG TABLET (FP) ONE (05:55)
[2017-11-19] MEDS ORDERED: LEVOTHYROXINE NA 100 MCG TABLET (FP) ONE (05:55)
[2017-11-19] MEDS: LEVOTHYROXINE 100 MCG, LEVOTHYROXINE 25 MCG PO SCH (06:27)
[2017-11-19] MEDS: predniSONE 10 MG TABLET (UD) PO SCH (10:25)
[2017-11-19] MEDS: BUPRENORPHINE/NALOXONE 8 MG/2 MG FILM PACKET SL SCH ×2 (10:26→21:54)
[2017-11-19] MEDS: amLODIPine BESYLATE 10 MG TABLET (FP) PO SCH (10:26)
[2017-11-19] MEDS: LISINOPRIL 20 MG TABLET (FP) PO SCH (10:26)
[2017-11-19] MEDS: PANTOPRAZOLE 40 MG TABLET (FP) PO SCH (10:26)
[2017-11-19] MEDS: cloNIDine HCL 0.1 MG TABLET PO SCH ×2 (10:26→21:54)
[2017-11-19] MEDS: PRENATAL VITAMINS W/ FOLIC ACID TABLET (FP) PO SCH (10:26)
[2017-11-19] MEDS: ESCITALOPRAM OXALATE 20 MG TABLET (FP) PO SCH (10:26)
[2017-11-19] MEDS: NICOTINE 21 MG/24 HOURS TOPICAL PATCH TD SCH (10:28)
[2017-11-19] MEDS: THIAMINE HCL 100 MG TABLET (FP) PO SCH (21:54)
[2017-11-19] MEDS: QUEtiapine FUMARATE 100 MG TABLET (FP) PO SCH (21:55)
[2017-11-20] MEDS: hydrOXYzine PAMOATE 50 MG CAPSULE (FP) PO PRN (05:16)
[2017-11-20] MEDS ORDERED: LEVOTHYROXINE NA 100 MCG TABLET (FP) ONE (05:25)
[2017-11-20] MEDS ORDERED: LEVOTHYROXINE NA 25 MCG TABLET (FP) ONE (05:25)
[2017-11-20] MEDS: LEVOTHYROXINE 100 MCG, LEVOTHYROXINE 25 MCG PO SCH (06:06)
[2017-11-20] MEDS: predniSONE 10 MG TABLET (UD) PO SCH (10:16)
[2017-11-20] MEDS: cloNIDine HCL 0.1 MG TABLET PO SCH ×2 (10:16→21:57)
[2017-11-20] MEDS: LISINOPRIL 20 MG TABLET (FP) PO SCH (10:17)
[2017-11-20] MEDS: ESCITALOPRAM OXALATE 20 MG TABLET (FP) PO SCH (10:17)
[2017-11-20] MEDS: PRENATAL VITAMINS W/ FOLIC ACID TABLET (FP) PO SCH (10:17)
[2017-11-20] MEDS: PANTOPRAZOLE 40 MG TABLET (FP) PO SCH (10:18)
[2017-11-20] MEDS: amLODIPine BESYLATE 10 MG TABLET (FP) PO SCH (10:18)
[2017-11-20] MEDS: NICOTINE 21 MG/24 HOURS TOPICAL PATCH TD SCH (10:18)
[2017-11-20] MEDS: BUPRENORPHINE/NALOXONE 8 MG/2 MG FILM PACKET SL SCH ×2 (10:18→21:58)
[2017-11-20] MEDS: QUEtiapine FUMARATE 100 MG TABLET (FP) PO SCH (21:57)
[2017-11-20] MEDS: THIAMINE HCL 100 MG TABLET (FP) PO SCH (21:58)
[2017-11-21] MEDS: hydrOXYzine PAMOATE 50 MG CAPSULE (FP) PO PRN (04:09)
[2017-11-21] MEDS ORDERED: LEVOTHYROXINE NA 100 MCG TABLET (FP) ONE (05:36)
[2017-11-21] MEDS ORDERED: LEVOTHYROXINE NA 25 MCG TABLET (FP) ONE (05:37)
[2017-11-21] MEDS: LEVOTHYROXINE 100 MCG, LEVOTHYROXINE 25 MCG PO SCH (06:24)
[2017-11-21] MEDS: predniSONE 10 MG TABLET (UD) PO SCH (10:37)
[2017-11-21] MEDS: LISINOPRIL 20 MG TABLET (FP) PO SCH (10:37)
[2017-11-21] MEDS: amLODIPine BESYLATE 10 MG TABLET (FP) PO SCH (10:37)
[2017-11-21] MEDS: PANTOPRAZOLE 40 MG TABLET (FP) PO SCH (10:37)
[2017-11-21] MEDS: BUPRENORPHINE/NALOXONE 8 MG/2 MG FILM PACKET SL SCH ×2 (10:37→22:07)
[2017-11-21] MEDS: PRENATAL VITAMINS W/ FOLIC ACID TABLET (FP) PO SCH (10:37)
[2017-11-21] MEDS: cloNIDine HCL 0.1 MG TABLET PO SCH ×2 (10:37→22:06)
[2017-11-21] MEDS: NICOTINE 21 MG/24 HOURS TOPICAL PATCH TD SCH (10:37)
[2017-11-21] MEDS: ESCITALOPRAM OXALATE 20 MG TABLET (FP) PO SCH (10:37)
[2017-11-21] MEDS: THIAMINE HCL 100 MG TABLET (FP) PO SCH (22:06)
[2017-11-21] MEDS: QUEtiapine FUMARATE 100 MG TABLET (FP) PO SCH (22:06)
[2017-11-22] MEDS: hydrOXYzine PAMOATE 50 MG CAPSULE (FP) PO PRN (03:30)
[2017-11-22] MEDS ORDERED: LEVOTHYROXINE NA 100 MCG TABLET (FP) ONE (03:37)
[2017-11-22] MEDS ORDERED: LEVOTHYROXINE NA 25 MCG TABLET (FP) ONE (03:38)
[2017-11-22] MEDS: LEVOTHYROXINE 100 MCG, LEVOTHYROXINE 25 MCG PO SCH (06:23)
[2017-11-22] MEDS: COLLOIDAL OATMEAL 1 BAR EACH TP PRN (06:39)
[2017-11-22] MEDS: NICOTINE 21 MG/24 HOURS TOPICAL PATCH TD SCH (11:02)
[2017-11-22] MEDS: BUPRENORPHINE/NALOXONE 8 MG/2 MG FILM PACKET SL SCH ×2 (11:02→22:12)
[2017-11-22] MEDS: predniSONE 10 MG TABLET (UD) PO SCH (11:03)
[2017-11-22] MEDS: LISINOPRIL 20 MG TABLET (FP) PO SCH (11:03)
[2017-11-22] MEDS: cloNIDine HCL 0.1 MG TABLET PO SCH ×2 (11:03→22:12)
[2017-11-22] MEDS: PRENATAL VITAMINS W/ FOLIC ACID TABLET (FP) PO SCH (11:04)
[2017-11-22] MEDS: PANTOPRAZOLE 40 MG TABLET (FP) PO SCH (11:04)
[2017-11-22] MEDS: ESCITALOPRAM OXALATE 20 MG TABLET (FP) PO SCH (11:04)
[2017-11-22] MEDS: amLODIPine BESYLATE 10 MG TABLET (FP) PO SCH (11:04)
[2017-11-22] MEDS: QUEtiapine FUMARATE 100 MG TABLET (FP) PO SCH (22:12)
[2017-11-22] MEDS: THIAMINE HCL 100 MG TABLET (FP) PO SCH (22:12)
[2017-11-23] MEDS: hydrOXYzine PAMOATE 50 MG CAPSULE (FP) PO PRN (01:33)
[2017-11-23] MEDS ORDERED: LEVOTHYROXINE NA 100 MCG TABLET (FP) ONE (06:01)
[2017-11-23] MEDS ORDERED: LEVOTHYROXINE NA 25 MCG TABLET (FP) ONE (06:01)
[2017-11-23] MEDS: LEVOTHYROXINE 100 MCG, LEVOTHYROXINE 25 MCG PO SCH (06:26)
[2017-11-23] MEDS: cloNIDine HCL 0.1 MG TABLET PO SCH ×2 (11:07→22:13)
[2017-11-23] MEDS: ESCITALOPRAM OXALATE 20 MG TABLET (FP) PO SCH (11:07)
[2017-11-23] MEDS: PRENATAL VITAMINS W/ FOLIC ACID TABLET (FP) PO SCH (11:07)
[2017-11-23] MEDS: LISINOPRIL 20 MG TABLET (FP) PO SCH (11:08)
[2017-11-23] MEDS: BUPRENORPHINE/NALOXONE 8 MG/2 MG FILM PACKET SL SCH ×2 (11:08→22:13)
[2017-11-23] MEDS: amLODIPine BESYLATE 10 MG TABLET (FP) PO SCH (11:08)
[2017-11-23] MEDS: PANTOPRAZOLE 40 MG TABLET (FP) PO SCH (11:08)
[2017-11-23] MEDS: predniSONE 10 MG TABLET (UD) PO SCH (11:08)
[2017-11-23] MEDS: NICOTINE 21 MG/24 HOURS TOPICAL PATCH TD SCH (11:10)
--- NOTE | 2017-11-23 15:28 | HP ---
SHAYLA SMALL Rehab Assess/Revision - Vital signs Vital Signs: Vital Signs Period Temp Pulse Resp BP Sys/Gomez Pulse Ox Last 24 Hr 97.8 F 80-105 18-18 133-138/77-87 Inpatient Rehab Admission - Initial Determination Are CD services needed?: Yes Free of communicable disease: Yes Not in need of hospitalization: Yes - Rehab Admission Criteria Lacks judgement: Yes Patient is meeting Inpatient Rehab admission criteria:: Yes
[2017-11-23] MEDS: THIAMINE HCL 100 MG TABLET (FP) PO SCH (22:13)
[2017-11-23] MEDS: QUEtiapine FUMARATE 100 MG TABLET (FP) PO SCH (22:13)
[2017-11-24] MEDS ORDERED: LEVOTHYROXINE NA 100 MCG TABLET (FP) ONE (03:34)
[2017-11-24] MEDS ORDERED: LEVOTHYROXINE NA 25 MCG TABLET (FP) ONE (03:34)
[2017-11-24] MEDS: hydrOXYzine PAMOATE 50 MG CAPSULE (FP) PO PRN (04:21)
[2017-11-24] MEDS: LEVOTHYROXINE 100 MCG, LEVOTHYROXINE 25 MCG PO SCH (06:30)
[2017-11-24] MEDS: predniSONE 10 MG TABLET (UD) PO SCH (10:37)
[2017-11-24] MEDS: cloNIDine HCL 0.1 MG TABLET PO SCH ×2 (10:37→21:54)
[2017-11-24] MEDS: amLODIPine BESYLATE 10 MG TABLET (FP) PO SCH (10:38)
[2017-11-24] MEDS: ESCITALOPRAM OXALATE 20 MG TABLET (FP) PO SCH (10:38)
[2017-11-24] MEDS: NICOTINE 21 MG/24 HOURS TOPICAL PATCH TD SCH (10:38)
[2017-11-24] MEDS: BUPRENORPHINE/NALOXONE 8 MG/2 MG FILM PACKET SL SCH ×2 (10:39→21:54)
[2017-11-24] MEDS: PANTOPRAZOLE 40 MG TABLET (FP) PO SCH (10:39)
[2017-11-24] MEDS: PRENATAL VITAMINS W/ FOLIC ACID TABLET (FP) PO SCH (10:39)
[2017-11-24] MEDS: LISINOPRIL 20 MG TABLET (FP) PO SCH (10:39)
[2017-11-24] MEDS: THIAMINE HCL 100 MG TABLET (FP) PO SCH (21:54)
[2017-11-24] MEDS: QUEtiapine FUMARATE 100 MG TABLET (FP) PO SCH (21:54)
[2017-11-25] MEDS: hydrOXYzine PAMOATE 50 MG CAPSULE (FP) PO PRN ×2 (02:42→21:46)
[2017-11-25] MEDS ORDERED: LEVOTHYROXINE NA 100 MCG TABLET (FP) ONE (03:21)
[2017-11-25] MEDS ORDERED: LEVOTHYROXINE NA 25 MCG TABLET (FP) ONE (03:21)
[2017-11-25] MEDS: LEVOTHYROXINE 100 MCG, LEVOTHYROXINE 25 MCG PO SCH (06:25)
[2017-11-25] MEDS: predniSONE 10 MG TABLET (UD) PO SCH (10:42)
[2017-11-25] MEDS: cloNIDine HCL 0.1 MG TABLET PO SCH ×2 (10:42→21:45)
[2017-11-25] MEDS: amLODIPine BESYLATE 10 MG TABLET (FP) PO SCH (10:42)
[2017-11-25] MEDS: PRENATAL VITAMINS W/ FOLIC ACID TABLET (FP) PO SCH (10:42)
[2017-11-25] MEDS: LISINOPRIL 20 MG TABLET (FP) PO SCH (10:43)
[2017-11-25] MEDS: ESCITALOPRAM OXALATE 20 MG TABLET (FP) PO SCH (10:43)
[2017-11-25] MEDS: PANTOPRAZOLE 40 MG TABLET (FP) PO SCH (10:43)
[2017-11-25] MEDS: BUPRENORPHINE/NALOXONE 8 MG/2 MG FILM PACKET SL SCH ×2 (10:43→21:47)
[2017-11-25] MEDS: NICOTINE 21 MG/24 HOURS TOPICAL PATCH TD SCH (10:44)
[2017-11-25] MEDS: THIAMINE HCL 100 MG TABLET (FP) PO SCH (21:45)
[2017-11-25] MEDS: QUEtiapine FUMARATE 100 MG TABLET (FP) PO SCH (21:45)
[2017-11-26] MEDS: hydrOXYzine PAMOATE 50 MG CAPSULE (FP) PO PRN (03:00)
[2017-11-26] MEDS ORDERED: LEVOTHYROXINE NA 25 MCG TABLET (FP) ONE (03:01)
[2017-11-26] MEDS ORDERED: LEVOTHYROXINE NA 100 MCG TABLET (FP) ONE (03:01)
[2017-11-26] MEDS: LEVOTHYROXINE 100 MCG, LEVOTHYROXINE 25 MCG PO SCH (06:28)
[2017-11-26] MEDS: COLLOIDAL OATMEAL 1 BAR EACH TP PRN (06:38)
[2017-11-26] MEDS: ESCITALOPRAM OXALATE 20 MG TABLET (FP) PO SCH (10:41)
[2017-11-26] MEDS: cloNIDine HCL 0.1 MG TABLET PO SCH ×2 (10:41→22:06)
[2017-11-26] MEDS: predniSONE 10 MG TABLET (UD) PO SCH (10:41)
[2017-11-26] MEDS: amLODIPine BESYLATE 10 MG TABLET (FP) PO SCH (10:42)
[2017-11-26] MEDS: LISINOPRIL 20 MG TABLET (FP) PO SCH (10:42)
[2017-11-26] MEDS: BUPRENORPHINE/NALOXONE 8 MG/2 MG FILM PACKET SL SCH ×2 (10:43→22:06)
[2017-11-26] MEDS: PRENATAL VITAMINS W/ FOLIC ACID TABLET (FP) PO SCH (10:43)
[2017-11-26] MEDS: NICOTINE 21 MG/24 HOURS TOPICAL PATCH TD SCH (10:43)
[2017-11-26] MEDS: PANTOPRAZOLE 40 MG TABLET (FP) PO SCH (10:43)
[2017-11-26] MEDS: QUEtiapine FUMARATE 100 MG TABLET (FP) PO SCH (22:06)
[2017-11-26] MEDS: THIAMINE HCL 100 MG TABLET (FP) PO SCH (22:06)
[2017-11-27] MEDS ORDERED: LEVOTHYROXINE NA 25 MCG TABLET (FP) ONE (03:25)
[2017-11-27] MEDS ORDERED: LEVOTHYROXINE NA 100 MCG TABLET (FP) ONE (03:25)
[2017-11-27] MEDS: LEVOTHYROXINE 100 MCG, LEVOTHYROXINE 25 MCG PO SCH (06:33)
[2017-11-27] MEDS: hydrOXYzine PAMOATE 50 MG CAPSULE (FP) PO PRN (06:33)
[2017-11-27] MEDS ORDERED: PT OWN MED DRAWER 7, Y5N ONE ×2 (08:55→10:37)
[2017-11-27] MEDS: predniSONE 10 MG TABLET (UD) PO SCH (10:36)
[2017-11-27] MEDS: LISINOPRIL 20 MG TABLET (FP) PO SCH (10:37)
[2017-11-27] MEDS: amLODIPine BESYLATE 10 MG TABLET (FP) PO SCH (10:38)
[2017-11-27] MEDS: BUPRENORPHINE/NALOXONE 8 MG/2 MG FILM PACKET SL SCH ×2 (10:38→21:56)
[2017-11-27] MEDS: ESCITALOPRAM OXALATE 20 MG TABLET (FP) PO SCH (10:38)
[2017-11-27] MEDS: cloNIDine HCL 0.1 MG TABLET PO SCH ×2 (10:38→21:56)
[2017-11-27] MEDS: PANTOPRAZOLE 40 MG TABLET (FP) PO SCH (10:38)
[2017-11-27] MEDS: PRENATAL VITAMINS W/ FOLIC ACID TABLET (FP) PO SCH (10:38)
[2017-11-27] MEDS: NICOTINE 21 MG/24 HOURS TOPICAL PATCH TD SCH (10:38)
[2017-11-27] MEDS: THIAMINE HCL 100 MG TABLET (FP) PO SCH (21:55)
[2017-11-27] MEDS: QUEtiapine FUMARATE 100 MG TABLET (FP) PO SCH (21:56)
[2017-11-28] MEDS ORDERED: LEVOTHYROXINE NA 100 MCG TABLET (FP) ONE (05:59)
[2017-11-28] MEDS ORDERED: LEVOTHYROXINE NA 25 MCG TABLET (FP) ONE (05:59)
[2017-11-28] MEDS: LEVOTHYROXINE 100 MCG, LEVOTHYROXINE 25 MCG PO SCH (06:36)
[2017-11-28 07:38] VITALS: TEMP 98.2
[2017-11-28] MEDS: cloNIDine HCL 0.1 MG TABLET PO SCH (09:30)
[2017-11-28] MEDS: LISINOPRIL 20 MG TABLET (FP) PO SCH (09:30)
[2017-11-28] MEDS: amLODIPine BESYLATE 10 MG TABLET (FP) PO SCH (09:31)
[2017-11-28] MEDS: PRENATAL VITAMINS W/ FOLIC ACID TABLET (FP) PO SCH (09:31)
[2017-11-28] MEDS: ESCITALOPRAM OXALATE 20 MG TABLET (FP) PO SCH (09:31)
[2017-11-28] MEDS: predniSONE 10 MG TABLET (UD) PO SCH (09:31)
[2017-11-28] MEDS: BUPRENORPHINE/NALOXONE 8 MG/2 MG FILM PACKET SL SCH (09:32)
[2017-11-28] MEDS: NICOTINE 21 MG/24 HOURS TOPICAL PATCH TD SCH (09:32)
[2017-11-28] MEDS: PANTOPRAZOLE 40 MG TABLET (FP) PO SCH (09:32)
[2017-11-28 09:47] VITALS: BP 118/76; PULSE 106
--- NOTE | 2017-11-28 13:06 | PN ---
Psychiatric Progress Note Vital Signs: Vital Signs Period Temp Pulse Resp BP Sys/Gomez Pulse Ox Last 24 Hr 98.2 F 75-106 17-18 106-120/65-76 Date of Session: 11/28/17 Chief Complaint:: Discharge visit HPI: Patient addressed Alcohol,Cocaine,Benzo dependence comorbid with Bipolar disorder. ROS: COPD,GERD, Current Side Effect: No Lab tests ordered: No Lab tests reviewed: Yes Provider note:: Patient completed this program today and will continue to address her issues on outpatient basis at [facility] .Patient continues to find that current medications :Lexapro 20 mg po daily and Seroquel 100 mg po hs help to cope with anxiety,mood swings, insomnia.Scripts for 30 days provided. Supportive therapy probvided focusing on relapse prevention. Patient is stable for discharge today. Total face to face time:: 30 Mental Status Exam - Mental Status Exam Alert and Oriented to: Time, Place, Person Cognitive Function: Grossly Intact Patient Appearance: Well Groomed Mood: Hopeful Affect: Mood Congruent Patient Behavior: Cooperative Speech Pattern: Clear Voice Loudness: Normal Thought Process: Goal Oriented Thought Disorder: Not Present Hallucinations: Denies Suicidal Ideation: Denies Homicidal Ideation: Denies Insight/Judgement: Fair Sleep: Fair Appetite: Fair Muscle strength/Tone: Normal Gait/Station: Normal
--- NOTE | 2017-11-28 14:24 | PN ---
S Progress Note (SOAP) Subjective: Patient seen for home medication Rx for hld, htn, hypothyroidism and asthma. As per patient, she has medication at home and was on prednisone for few days due to acute asthma exacerbation. Patient was on prednisone 35mg PO daily for over 2 weeks and is aware that the dose will be tapered so she doesn't experience any withdrawal symptoms. Prednisone taper sent to her pharmacy. As per patient, she will resume her home medications and follow up with her PCP tomorrow at 11am. Patient is for discharge today and is without any complaints. Objective: 11/28/17 14:24 Last Vital Signs Temp Pulse Resp BP Pulse Ox 98.2 F 106 H 18 118/76 11/28/17 07:38 11/28/17 09:46 11/28/17 07:38 11/28/17 09:46 Laboratory Tests 11/14/17 14:55 Urine Color Ltyellow Urine Appearance Clear Urine pH 6.0 D Ur Specific Kelly 1.005 Urine Protein Negative Urine Glucose (UA) Negative Urine Ketones Negative Urine Blood Negative Urine Nitrite Negative Urine Bilirubin Negative Urine Urobilinogen Negative Ur Leukocyte Esterase Trace H Urine WBC (Auto) 2 Urine RBC (Auto) <1 Labs noted Assessment: 11/28/17 14:24 Patient seen for f/u on HTN, HLD, Hypothyroidism and asthma Plan: Asthma: continue prednisone taper, avoid triggers, continue other treatment HTN: resume home medication (lisinopril and norvasc) HLD: resume home medication (lipitor) Hypothyroidism: resume home medication (synthroid) F/U with your PCP as scheduled
== END 2017-11-28 10:20 | disposition home or self-care (01) | DRG 772 ==
LOC: YASAS 13:57 → Y3E 14:58
PROVIDERS: ADMIT Psychiatry & Neurology Psychiatry; ATTEND Psychiatry & Neurology Psychiatry
PROC: HZ42ZZZ Group Counseling for Substance Abuse Treatment, Cognitive-Behavioral (ICD-10-PCS; principal; 2017-11-08)
DX: F11.20 Opioid dependence, uncomplicated (principal); F13.20 Sedative, hypnotic or anxiolytic dependence, uncomplicated; F17.210 Nicotine dependence, cigarettes, uncomplicated; F19.282 Other psychoactive substance dependence with psychoactive substance-induced sleep disorder; F33.9 Major depressive disorder, recurrent, unspecified; F31.81 Bipolar II disorder; F41.9 Anxiety disorder, unspecified; I10 Essential (primary) hypertension; E78.5 Hyperlipidemia, unspecified; E03.9 Hypothyroidism, unspecified; J45.901 Unspecified asthma with (acute) exacerbation; J44.9 Chronic obstructive pulmonary disease, unspecified; K21.9 Gastro-esophageal reflux disease without esophagitis; R00.0 Tachycardia, unspecified; R30.0 Dysuria; R39.11 Hesitancy of micturition; R31.9 Hematuria, unspecified; B18.2 Chronic viral hepatitis C; D64.9 Anemia, unspecified; Z91.5 Personal history of self-harm
CPT/HCPCS: 81003; 81015; 87086

== ENCOUNTER 2018-02-18 10:47 | Inpatient (IN) | payer OTHER ==
[2018-02-18 11:56] VITALS: BMI 28.7
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
[2018-02-18] MEDS ORDERED: P-EPHED 60MG/TRIPROLIDI 2.5MG TABLET PO PRN (14:57)
[2018-02-18] MEDS ORDERED: NICOTINE POLACRILEX 2 MG GUM BUC PRN (14:57)
[2018-02-18] MEDS ORDERED: MAG HYDROX/AL HYDROX/SIMETH 30 ML UNIT-DOSE CUP PO PRN (14:57)
[2018-02-18] MEDS ORDERED: LOPERAMIDE HCL 2 MG CAPSULE PO PRN (14:57)
[2018-02-18] MEDS ORDERED: MENTHOL/PHENOL 1 EACH UD MM PRN (14:57)
[2018-02-18] MEDS ORDERED: guaiFENesin/D-METHORPHAN HB 10 ML UNIT-DOSE CUPS PO PRN (14:57)
[2018-02-18] MEDS ORDERED: hydrOXYzine PAMOATE 50 MG CAPSULE (FP) PO PRN (14:57)
[2018-02-18] MEDS ORDERED: MAGNESIUM CITRATE 300 ML BOTTLE PO PRN (14:57)
[2018-02-18] MEDS ORDERED: IBUPROFEN 400 MG TABLET (FP) PO PRN (14:57)
[2018-02-18] MEDS ORDERED: ACETAMINOPHEN 325 MG TABLET (FP) PO PRN (14:57)
[2018-02-18] MEDS ORDERED: MAGNESIUM HYDROX 2400MG/30ML ORAL SUSPENSION 30 ML CUP PO PRN (14:57)
[2018-02-18] MEDS ORDERED: ALBUTEROL SO4 18 GM HFA INHALER IH PRN (15:00)
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
[2018-02-18] MEDS ORDERED: diphenhydrAMINE HCL 50 MG CAPSULE PO PRN (16:53)
[2018-02-18] MEDS: ESCITALOPRAM OXALATE 20 MG TABLET (FP) PO SCH (17:35)
[2018-02-18] MEDS: MELATONIN 5 MG TABLETS PO SCH (21:41)
[2018-02-18] MEDS: THIAMINE HCL 100 MG TABLET (FP) PO SCH (21:41)
[2018-02-18] MEDS: cloNIDine HCL 0.1 MG TABLET PO SCH (21:42)
[2018-02-18] MEDS: QUEtiapine FUMARATE 100 MG TABLET (FP) PO SCH (21:42)
[2018-02-19] MEDS: CYCLOBENZAPRINE HCL 10 MG TABLET (FP) PO PRN ×2 (01:04→06:50)
[2018-02-19 02:02] LABS: URINE APPEARANCE CLOUDY; URINE BILIRUBIN NEGATIVE (<2.0 mg/dL); URINE BLOOD NEGATIVE (NEGATIVE); URINE COLOR AMBER; URINE GLUCOSE (UA) NEGATIVE (NEGATIVE); URINE KETONE NEGATIVE (NEGATIVE); URINE NITRITE NEGATIVE (NEGATIVE); URINE PROTEIN NEGATIVE (NEGATIVE); URINE UROBILINOGEN NEGATIVE mg/dL (0.2-1.0)
[2018-02-19 02:10] LABS: URINE LEUK ESTERASE 1+ (NEGATIVE)
[2018-02-19 03:11] LABS: EPI CELLS MANY /HPF (FEW); URINE BACTERIA FEW /hpf (NONE SEEN)
[2018-02-19] MEDS ORDERED: LEVOTHYROXINE NA 100 MCG TABLET (FP) ONE (05:57)
[2018-02-19] MEDS ORDERED: LEVOTHYROXINE NA 25 MCG TABLET (FP) ONE (05:58)
[2018-02-19] MEDS: LEVOTHYROXINE 25 MCG, LEVOTHYROXINE 100 MCG PO SCH (06:51)
[2018-02-19] MEDS ORDERED: LEVOTHYROXINE NA 100 MCG TABLET (FP) PO SCH (07:00)
[2018-02-19] MEDS: cloNIDine HCL 0.1 MG TABLET PO SCH ×3 (07:42→21:19)
[2018-02-19] MEDS: COLLOIDAL OATMEAL 1 BAR EACH TP PRN (07:48)
[2018-02-19] MEDS: ESCITALOPRAM OXALATE 20 MG TABLET (FP) PO SCH (09:48)
[2018-02-19] MEDS: PRENATAL VITAMINS W/ FOLIC ACID TABLET (FP) PO SCH (09:48)
[2018-02-19] MEDS ORDERED: cloNIDine HCL 0.1 MG TABLET PO ONE (09:59)
[2018-02-19] MEDS ORDERED: LISINOPRIL 10 MG TABLET (FP) PO SCH (10:00)
[2018-02-19] MEDS ORDERED: BUPRENORPHINE/NALOXONE 8 MG/2 MG FILM PACKET SL SCH (10:00)
--- NOTE | 2018-02-19 10:02 | PN ---
[facility] Progress Note Note: BP 193/108 WITHDRAWAL SYMPTOM,CLONIDINE 0.1 MG PO NOW THEN BID,BP MONITORING
[2018-02-19 10:04] LABS: HEMATOCRIT 37.3 % (32.4-45.2); HEMOGLOBIN 12.2 GM/dL (10.7-15.3); MCH 28.1 pg (25.7-33.7); MCHC 32.7 g/dl (32.0-36.0); MEAN PLT VOLUME 9.5 fl (7.5-11.1); PLATELET COUNT 277 K/MM3 (134-434); RBC 4.34 M/mm3 (3.60-5.2); RDW 15.1 % (11.6-15.6); WHITE BLOOD COUNT 7.2 K/mm3 (4.0-10.0)
[2018-02-19 10:24] LABS: CHLORIDE 107 mmol/L (98-107); POTASSIUM 4.3 mmol/L (3.5-5.1); SODIUM 140 mmol/L (136-145)
[2018-02-19 10:45] LABS: ALBUMIN 3.6 g/dl (3.4-5.0); ALK PHOS 87 U/L (45-117); ANION GAP 8 (8-16); BILIRUBIN,TOTAL 0.2 mg/dL (0.2-1.0); BLOOD UREA NITROGEN 18 mg/dL (7-18); CALCIUM 9.2 mg/dL (8.5-10.1); CO2 25 mmol/L (21-32); CREATININE 1.1 mg/dL (0.55-1.02); GLUCOSE,RANDOM 100 mg/dL (74-106); SGOT/AST 21 U/L (15-37); SGPT/ALT 21 U/L (12-78); TOT PROT 7.3 g/dl (6.4-8.2)
[2018-02-19] MEDS ORDERED: FLU VACCINE QUAD 60 MCG/0.5 ML (MDV 17-18) IM ONE (12:00)
[2018-02-19] MEDS ORDERED: PT OWN MED DRAWER 7, Y5N ONE (13:45)
--- NOTE | 2018-02-19 16:47 | EKG ---
Test Reason : Blood Pressure : / mmHG Vent. Rate : 068 BPM Atrial Rate : 068 BPM P-R Int : 146 ms QRS Dur : 080 ms QT Int : 426 ms P-R-T Axes : 072 025 040 degrees QTc Int : 452 ms NORMAL SINUS RHYTHM NORMAL ECG WHEN COMPARED WITH ECG OF 04-NOV-2017 16:13, NO SIGNIFICANT CHANGE WAS FOUND Confirmed by MD Kim Edward ([id number]) on 02/19/2018 4:46:53 PM Referred By: Confirmed By:Karan Kim MD
--- NOTE | 2018-02-19 17:39 | PN ---
[facility] Progress Note Note: Patient currently on Buprinorphine 16 mg SL QD in the community but takes it in two divided doses of 8mg. Vital Signs Temperature 97.8 F 02/19/18 07:05 Pulse Rate 69 02/19/18 12:20 Respiratory Rate 18 02/19/18 07:05 Blood Pressure 149/87 02/19/18 12:20 O2 Sat by Pulse Oximetry (%) Laboratory Last Values WBC 7.2 K/mm3 (4.0-10.0) D 02/19/18 05:50 RBC 4.34 M/mm3 (3.60-5.2) 02/19/18 05:50 Hgb 12.2 GM/dL (10.7-15.3) 02/19/18 05:50 Hct 37.3 % (32.4-45.2) 02/19/18 05:50 MCV 86.0 fl (80-96) 02/19/18 05:50 MCH 28.1 pg (25.7-33.7) 02/19/18 05:50 MCHC 32.7 g/dl (32.0-36.0) 02/19/18 05:50 RDW 15.1 % (11.6-15.6) 02/19/18 05:50 Plt Count 277 K/MM3 (134-434) 02/19/18 05:50 MPV 9.5 fl (7.5-11.1) D 02/19/18 05:50 Sodium 140 mmol/L (136-145) 02/19/18 05:50 Potassium 4.3 mmol/L (3.5-5.1) 02/19/18 05:50 Chloride 107 mmol/L (98-107) 02/19/18 05:50 Carbon Dioxide 25 mmol/L (21-32) 02/19/18 05:50 Anion Gap 8 (8-16) 02/19/18 05:50 BUN 18 mg/dL (7-18) 02/19/18 05:50 Creatinine 1.1 mg/dL (0.55-1.02) H 02/19/18 05:50 Creat Clearance w eGFR 51.02 (>60) 02/19/18 05:50 Random Glucose 100 mg/dL (74-106) 02/19/18 05:50 Calcium 9.2 mg/dL (8.5-10.1) 02/19/18 05:50 Total Bilirubin 0.2 mg/dL (0.2-1.0) D 02/19/18 05:50 AST 21 U/L (15-37) 02/19/18 05:50 ALT 21 U/L (12-78) 02/19/18 05:50 Alkaline Phosphatase 87 U/L (45-117) 02/19/18 05:50 Total Protein 7.3 g/dl (6.4-8.2) 02/19/18 05:50 Albumin 3.6 g/dl (3.4-5.0) 02/19/18 05:50 Urine Color [place] 02/18/18 22:00 Urine Appearance Cloudy 02/18/18 22:00 Urine pH 5.0 (5.0-8.0) 02/18/18 22:00 Ur Specific Young 1.020 (1.001-1.035) 02/18/18 22:00 Urine Protein Negative (NEGATIVE) 02/18/18 22:00 Urine Glucose (UA) Negative (NEGATIVE) 02/18/18 22:00 Urine Ketones Negative (NEGATIVE) 02/18/18 22:00 Urine Blood Negative (NEGATIVE) 02/18/18 22:00 Urine Nitrite Negative (NEGATIVE) 02/18/18 22:00 Urine Bilirubin Negative (<2.0 mg/dL) 02/18/18 22:00 Urine Urobilinogen Negative mg/dL (0.2-1.0) 02/18/18 22:00 Ur Leukocyte Esterase 1+ (NEGATIVE) H 02/18/18 22:00 Urine WBC (Auto) 20-25 /hpf (3-5) 02/18/18 22:00 Urine RBC (Auto) 15-20 /hpf (0-3) 02/18/18 22:00 Ur Epithelial Cells Many /HPF (FEW) 02/18/18 22:00 Urine Bacteria Few /hpf (NONE SEEN) 02/18/18 22:00 RPR Titer Nonreactive (NONREACTIVE) 02/19/18 05:50 Patient AOx3 in no apparent distress, ambulating in the unit Plan: Buprinorphine schedule 8mg BID Lisinopril increase from 10mg qd to 10mg BID, d/t elevated BP Increase fluids Continue to monitor
[2018-02-19] MEDS: MELATONIN 5 MG TABLETS PO SCH (21:18)
[2018-02-19] MEDS: LISINOPRIL 10 MG TABLET (FP) PO SCH (21:19)
[2018-02-19] MEDS: THIAMINE HCL 100 MG TABLET (FP) PO SCH (21:19)
[2018-02-19] MEDS: QUEtiapine FUMARATE 100 MG TABLET (FP) PO SCH (21:19)
[2018-02-20] MEDS ORDERED: LEVOTHYROXINE NA 100 MCG TABLET (FP) ONE (03:28)
[2018-02-20] MEDS ORDERED: LEVOTHYROXINE NA 25 MCG TABLET (FP) ONE (03:28)
[2018-02-20] MEDS: LEVOTHYROXINE 25 MCG, LEVOTHYROXINE 100 MCG PO SCH (06:51)
[2018-02-20] MEDS: cloNIDine HCL 0.1 MG TABLET PO SCH ×2 (10:25→21:14)
[2018-02-20] MEDS: ESCITALOPRAM OXALATE 20 MG TABLET (FP) PO SCH (10:25)
[2018-02-20] MEDS: BUPRENORPHINE/NALOXONE 8 MG/2 MG FILM PACKET SL SCH ×2 (10:25→21:14)
[2018-02-20] MEDS: LISINOPRIL 10 MG TABLET (FP) PO SCH ×2 (10:25→21:14)
[2018-02-20] MEDS: PRENATAL VITAMINS W/ FOLIC ACID TABLET (FP) PO SCH (10:25)
[2018-02-20] MEDS: QUEtiapine FUMARATE 100 MG TABLET (FP) PO SCH (21:14)
[2018-02-20] MEDS: THIAMINE HCL 100 MG TABLET (FP) PO SCH (21:14)
[2018-02-20] MEDS: MELATONIN 5 MG TABLETS PO SCH (21:15)
[2018-02-20 22:16] LABS: URINE APPEARANCE TURBID; URINE BILIRUBIN NEGATIVE (<2.0 mg/dL); URINE BLOOD NEGATIVE (NEGATIVE); URINE COLOR AMBER; URINE GLUCOSE (UA) NEGATIVE (NEGATIVE); URINE KETONE NEGATIVE (NEGATIVE); URINE LEUK ESTERASE TRACE (NEGATIVE); URINE NITRITE NEGATIVE (NEGATIVE); URINE PROTEIN NEGATIVE (NEGATIVE); URINE UROBILINOGEN NEGATIVE mg/dL (0.2-1.0)
[2018-02-20 22:32] LABS: EPI CELLS RARE /HPF (FEW); URINE BACTERIA RARE /hpf (NONE SEEN); URINE MUCUS MANY
[2018-02-21] MEDS ORDERED: LEVOTHYROXINE NA 100 MCG TABLET (FP) ONE (03:42)
[2018-02-21] MEDS ORDERED: LEVOTHYROXINE NA 25 MCG TABLET (FP) ONE (03:42)
[2018-02-21] MEDS: LEVOTHYROXINE 25 MCG, LEVOTHYROXINE 100 MCG PO SCH (06:41)
[2018-02-21] MEDS: BUPRENORPHINE/NALOXONE 8 MG/2 MG FILM PACKET SL SCH ×2 (09:37→21:24)
[2018-02-21] MEDS: ESCITALOPRAM OXALATE 20 MG TABLET (FP) PO SCH (09:37)
[2018-02-21] MEDS: PRENATAL VITAMINS W/ FOLIC ACID TABLET (FP) PO SCH (09:37)
[2018-02-21] MEDS: LISINOPRIL 10 MG TABLET (FP) PO SCH ×2 (09:37→21:25)
[2018-02-21] MEDS: cloNIDine HCL 0.1 MG TABLET PO SCH ×2 (09:37→21:23)
--- NOTE | 2018-02-21 13:36 | PN ---
[facility] Progress Note Note: Patient c/o lump on the left forearm. Reports this resulted after she last used IV drugs. Vital Signs Temperature 97.7 F 02/20/18 07:16 Pulse Rate 90 02/20/18 07:16 Respiratory Rate 18 02/20/18 07:16 Blood Pressure 93/72 02/20/18 07:16 O2 Sat by Pulse Oximetry (%) Subj: Pt complains of non-productive cough x 2 days. Denies history of asthma. Afebrile. No CP or SOB reported. Cough dry and occurs more at night. Obj: Gen: Skin warm and dry, + ecchymosis on the left forearm with warm nodule, + track linder in multiple healing stages bilateral forearm Car: S1, S2. RRR. Resp: CTA BL, no wheezing or rales A/P: abscess left forearm Mupirocin cream top BID to the left forearm keflex 250 mg q6h PO x 7 days Increase fluids continue to monitor clinically
[2018-02-21] MEDS: MUPIROCIN CA 2% TOPICAL CREAM 15 GM TUBE TP SCH ×2 (15:27→21:23)
[2018-02-21] MEDS ORDERED: PT OWN MED DRAWER 7, Y5N ONE ×2 (17:17→21:26)
[2018-02-21] MEDS: CEPHALEXIN MONOHYDRATE 250 MG CAPSULE (FP) PO SCH ×2 (18:00→23:27)
[2018-02-21] MEDS: THIAMINE HCL 100 MG TABLET (FP) PO SCH (21:22)
[2018-02-21] MEDS: QUEtiapine FUMARATE 100 MG TABLET (FP) PO SCH (21:22)
[2018-02-21] MEDS: MELATONIN 5 MG TABLETS PO SCH (21:26)
[2018-02-22] MEDS ORDERED: LEVOTHYROXINE NA 25 MCG TABLET (FP) ONE (03:13)
[2018-02-22] MEDS ORDERED: LEVOTHYROXINE NA 100 MCG TABLET (FP) ONE (03:13)
[2018-02-22] MEDS ORDERED: PT OWN MED DRAWER 7, Y5N ONE ×4 (03:14→23:37)
[2018-02-22] MEDS: LEVOTHYROXINE 25 MCG, LEVOTHYROXINE 100 MCG PO SCH (06:22)
[2018-02-22] MEDS: CEPHALEXIN MONOHYDRATE 250 MG CAPSULE (FP) PO SCH ×3 (06:22→19:00)
[2018-02-22] MEDS: LISINOPRIL 10 MG TABLET (FP) PO SCH ×2 (10:23→21:29)
[2018-02-22] MEDS: cloNIDine HCL 0.1 MG TABLET PO SCH ×2 (10:23→21:28)
[2018-02-22] MEDS: PRENATAL VITAMINS W/ FOLIC ACID TABLET (FP) PO SCH (10:23)
[2018-02-22] MEDS: ESCITALOPRAM OXALATE 20 MG TABLET (FP) PO SCH (10:23)
[2018-02-22] MEDS: MUPIROCIN CA 2% TOPICAL CREAM 15 GM TUBE TP SCH ×3 (10:24→23:00)
[2018-02-22] MEDS: BUPRENORPHINE/NALOXONE 8 MG/2 MG FILM PACKET SL SCH ×2 (10:25→21:29)
[2018-02-22] MEDS: MELATONIN 5 MG TABLETS PO SCH (21:28)
[2018-02-22] MEDS: THIAMINE HCL 100 MG TABLET (FP) PO SCH (21:28)
[2018-02-22] MEDS: QUEtiapine FUMARATE 100 MG TABLET (FP) PO SCH (21:29)
[2018-02-23] MEDS: CEPHALEXIN MONOHYDRATE 250 MG CAPSULE (FP) PO SCH ×4 (00:15→18:47)
[2018-02-23] MEDS ORDERED: LEVOTHYROXINE NA 25 MCG TABLET (FP) ONE (05:49)
[2018-02-23] MEDS ORDERED: LEVOTHYROXINE NA 100 MCG TABLET (FP) ONE (05:49)
[2018-02-23] MEDS ORDERED: PT OWN MED DRAWER 7, Y5N ONE ×3 (05:50→17:07)
[2018-02-23] MEDS: LEVOTHYROXINE 25 MCG, LEVOTHYROXINE 100 MCG PO SCH (06:44)
[2018-02-23] MEDS: BUPRENORPHINE/NALOXONE 8 MG/2 MG FILM PACKET SL SCH ×2 (10:11→21:38)
[2018-02-23] MEDS: MUPIROCIN CA 2% TOPICAL CREAM 15 GM TUBE TP SCH ×2 (10:11→21:39)
[2018-02-23] MEDS: ESCITALOPRAM OXALATE 20 MG TABLET (FP) PO SCH (10:12)
[2018-02-23] MEDS: LISINOPRIL 10 MG TABLET (FP) PO SCH ×2 (10:12→21:37)
[2018-02-23] MEDS: PRENATAL VITAMINS W/ FOLIC ACID TABLET (FP) PO SCH (10:12)
[2018-02-23] MEDS: cloNIDine HCL 0.1 MG TABLET PO SCH ×2 (10:12→21:37)
[2018-02-23] MEDS: THIAMINE HCL 100 MG TABLET (FP) PO SCH (21:37)
[2018-02-23] MEDS: QUEtiapine FUMARATE 100 MG TABLET (FP) PO SCH (21:38)
[2018-02-23] MEDS: MELATONIN 5 MG TABLETS PO SCH (21:38)
[2018-02-23] MEDS: COLLOIDAL OATMEAL 1 BAR EACH TP PRN (22:45)
[2018-02-24] MEDS: CEPHALEXIN MONOHYDRATE 250 MG CAPSULE (FP) PO SCH ×5 (00:15→23:06)
[2018-02-24] MEDS ORDERED: LEVOTHYROXINE NA 25 MCG TABLET (FP) ONE (05:57)
[2018-02-24] MEDS ORDERED: LEVOTHYROXINE NA 100 MCG TABLET (FP) ONE (05:57)
[2018-02-24] MEDS ORDERED: PT OWN MED DRAWER 7, Y5N ONE ×3 (05:58→17:38)
[2018-02-24] MEDS: LEVOTHYROXINE 25 MCG, LEVOTHYROXINE 100 MCG PO SCH (06:49)
[2018-02-24] MEDS: BUPRENORPHINE/NALOXONE 8 MG/2 MG FILM PACKET SL SCH ×2 (10:02→21:25)
[2018-02-24] MEDS: ESCITALOPRAM OXALATE 20 MG TABLET (FP) PO SCH (10:02)
[2018-02-24] MEDS: LISINOPRIL 10 MG TABLET (FP) PO SCH ×2 (10:02→21:24)
[2018-02-24] MEDS: PRENATAL VITAMINS W/ FOLIC ACID TABLET (FP) PO SCH (10:02)
[2018-02-24] MEDS: MUPIROCIN CA 2% TOPICAL CREAM 15 GM TUBE TP SCH ×2 (10:03→21:25)
[2018-02-24] MEDS: cloNIDine HCL 0.1 MG TABLET PO SCH ×2 (10:03→21:24)
[2018-02-24] MEDS: QUEtiapine FUMARATE 100 MG TABLET (FP) PO SCH (21:24)
[2018-02-24] MEDS: THIAMINE HCL 100 MG TABLET (FP) PO SCH (21:24)
[2018-02-24] MEDS: MELATONIN 5 MG TABLETS PO SCH (21:25)
[2018-02-25] MEDS ORDERED: PT OWN MED DRAWER 7, Y5N ONE ×4 (05:51→16:51)
[2018-02-25] MEDS ORDERED: LEVOTHYROXINE NA 25 MCG TABLET (FP) ONE (05:51)
[2018-02-25] MEDS ORDERED: LEVOTHYROXINE NA 100 MCG TABLET (FP) ONE (05:51)
[2018-02-25] MEDS: LEVOTHYROXINE 25 MCG, LEVOTHYROXINE 100 MCG PO SCH (06:17)
[2018-02-25] MEDS: CEPHALEXIN MONOHYDRATE 250 MG CAPSULE (FP) PO SCH ×4 (06:17→23:08)
[2018-02-25] MEDS: PRENATAL VITAMINS W/ FOLIC ACID TABLET (FP) PO SCH (10:06)
[2018-02-25] MEDS: ESCITALOPRAM OXALATE 20 MG TABLET (FP) PO SCH (10:06)
[2018-02-25] MEDS: LISINOPRIL 10 MG TABLET (FP) PO SCH ×2 (10:06→21:24)
[2018-02-25] MEDS: MUPIROCIN CA 2% TOPICAL CREAM 15 GM TUBE TP SCH ×2 (10:06→21:25)
--- NOTE | 2018-02-25 12:42 | PN ---
[facility] Progress Note Note: Patient presents with urinary urgency. Denies dysuria. Vital Signs Period Temp Pulse Resp BP Sys/Gomez Pulse Ox Last 24 Hr 97.7 F-98.1 F 60-68 16-18 106-149/67-88 Obj: alert and oriented x 3. In NAD. Negative CVAT. A/P: urinary urgency Increase oral fluids Check UA Contiue to monitor clinically
[2018-02-25] MEDS ORDERED: BUPRENORPHINE/NALOXONE 8 MG/2 MG FILM PACKET SL ONE (13:45)
[2018-02-25 20:22] LABS: URINE APPEARANCE CLEAR; URINE BILIRUBIN NEGATIVE (<2.0 mg/dL); URINE BLOOD NEGATIVE (NEGATIVE); URINE COLOR LTYELLOW; URINE GLUCOSE (UA) NEGATIVE (NEGATIVE); URINE KETONE NEGATIVE (NEGATIVE); URINE LEUK ESTERASE NEGATIVE (NEGATIVE); URINE NITRITE NEGATIVE (NEGATIVE); URINE PROTEIN NEGATIVE (NEGATIVE); URINE UROBILINOGEN NEGATIVE mg/dL (0.2-1.0)
[2018-02-25] MEDS: QUEtiapine FUMARATE 100 MG TABLET (FP) PO SCH (21:24)
[2018-02-25] MEDS: MELATONIN 5 MG TABLETS PO SCH (21:24)
[2018-02-25] MEDS: THIAMINE HCL 100 MG TABLET (FP) PO SCH (21:24)
[2018-02-26] MEDS ORDERED: LEVOTHYROXINE NA 25 MCG TABLET (FP) ONE (03:23)
[2018-02-26] MEDS ORDERED: LEVOTHYROXINE NA 100 MCG TABLET (FP) ONE (03:23)
[2018-02-26] MEDS ORDERED: PT OWN MED DRAWER 7, Y5N ONE ×3 (03:24→19:50)
[2018-02-26] MEDS: LEVOTHYROXINE 25 MCG, LEVOTHYROXINE 100 MCG PO SCH (06:44)
[2018-02-26] MEDS: CEPHALEXIN MONOHYDRATE 250 MG CAPSULE (FP) PO SCH ×4 (06:44→23:45)
--- NOTE | 2018-02-26 07:51 | PN ---
[facility] Progress Note Note: ASKED TO SEE CLIENT FOR REFUSAL OF EVENING SUBOXONE NOW CHANGED TO DAILY BUT A TOTAL OF 16MG. CLIENT STATES SHE WAS RESTARTED ON SBX 8 MG WHEN SHE WAS ADMITTED AFTER NOT TAKING IT FOR A MONTH. SHE WAS LATER INCREASED TO 16MG THIS WAS HER DOSE OUT PATIENT. PT REPORTS SHE IS COMFORTABLE ON 8 MG DAILY AND DOES NOT WANT 16MG. DENIES CRAVINGS OR WITHDRAWAL SX'S CHANGE SBX TO 8 MG DAILY
[2018-02-26] MEDS ORDERED: BUPRENORPHINE/NALOXONE 8 MG/2 MG FILM PACKET SL SCH (10:00)
[2018-02-26] MEDS: MUPIROCIN CA 2% TOPICAL CREAM 15 GM TUBE TP SCH ×2 (10:25→21:13)
[2018-02-26] MEDS: BUPRENORPHINE/NALOXONE 8 MG/2 MG FILM PACKET SL SCH (10:26)
[2018-02-26] MEDS: PRENATAL VITAMINS W/ FOLIC ACID TABLET (FP) PO SCH (10:26)
[2018-02-26] MEDS: LISINOPRIL 10 MG TABLET (FP) PO SCH ×2 (10:26→21:13)
[2018-02-26] MEDS: ESCITALOPRAM OXALATE 20 MG TABLET (FP) PO SCH (10:26)
[2018-02-26] MEDS: MELATONIN 5 MG TABLETS PO SCH (21:13)
[2018-02-26] MEDS: THIAMINE HCL 100 MG TABLET (FP) PO SCH (21:13)
[2018-02-26] MEDS: QUEtiapine FUMARATE 100 MG TABLET (FP) PO SCH (21:13)
[2018-02-27] MEDS ORDERED: LEVOTHYROXINE NA 100 MCG TABLET (FP) ONE (03:38)
[2018-02-27] MEDS ORDERED: LEVOTHYROXINE NA 25 MCG TABLET (FP) ONE (03:38)
[2018-02-27] MEDS: CEPHALEXIN MONOHYDRATE 250 MG CAPSULE (FP) PO SCH ×4 (07:06→23:48)
[2018-02-27] MEDS: LEVOTHYROXINE 25 MCG, LEVOTHYROXINE 100 MCG PO SCH (07:06)
[2018-02-27] MEDS: BUPRENORPHINE/NALOXONE 8 MG/2 MG FILM PACKET SL SCH (10:14)
[2018-02-27] MEDS: ESCITALOPRAM OXALATE 20 MG TABLET (FP) PO SCH (10:14)
[2018-02-27] MEDS: PRENATAL VITAMINS W/ FOLIC ACID TABLET (FP) PO SCH (10:14)
[2018-02-27] MEDS: MUPIROCIN CA 2% TOPICAL CREAM 15 GM TUBE TP SCH ×2 (10:14→21:34)
[2018-02-27] MEDS: LISINOPRIL 10 MG TABLET (FP) PO SCH ×2 (10:14→21:32)
[2018-02-27] MEDS: THIAMINE HCL 100 MG TABLET (FP) PO SCH (21:32)
[2018-02-27] MEDS: QUEtiapine FUMARATE 100 MG TABLET (FP) PO SCH (21:32)
[2018-02-27] MEDS: MELATONIN 5 MG TABLETS PO SCH (21:33)
[2018-02-28] MEDS ORDERED: LEVOTHYROXINE NA 25 MCG TABLET (FP) ONE (03:18)
[2018-02-28] MEDS ORDERED: LEVOTHYROXINE NA 100 MCG TABLET (FP) ONE (03:18)
[2018-02-28] MEDS: CEPHALEXIN MONOHYDRATE 250 MG CAPSULE (FP) PO SCH ×2 (06:20→12:07)
[2018-02-28] MEDS: LEVOTHYROXINE 25 MCG, LEVOTHYROXINE 100 MCG PO SCH (06:20)
[2018-02-28] MEDS ORDERED: PT OWN MED DRAWER 7, Y5N ONE ×2 (08:42→19:30)
[2018-02-28] MEDS: BUPRENORPHINE/NALOXONE 8 MG/2 MG FILM PACKET SL SCH (10:04)
[2018-02-28] MEDS: PRENATAL VITAMINS W/ FOLIC ACID TABLET (FP) PO SCH (10:04)
[2018-02-28] MEDS: MUPIROCIN CA 2% TOPICAL CREAM 15 GM TUBE TP SCH ×2 (10:04→21:17)
[2018-02-28] MEDS: ESCITALOPRAM OXALATE 20 MG TABLET (FP) PO SCH (10:04)
[2018-02-28] MEDS: LISINOPRIL 10 MG TABLET (FP) PO SCH ×2 (10:04→21:17)
[2018-02-28] MEDS: MELATONIN 5 MG TABLETS PO SCH (21:17)
[2018-02-28] MEDS: QUEtiapine FUMARATE 100 MG TABLET (FP) PO SCH (21:17)
[2018-02-28] MEDS: THIAMINE HCL 100 MG TABLET (FP) PO SCH (21:17)
[2018-03-01] MEDS ORDERED: LEVOTHYROXINE NA 25 MCG TABLET (FP) ONE (05:53)
[2018-03-01] MEDS ORDERED: LEVOTHYROXINE NA 100 MCG TABLET (FP) ONE (05:53)
[2018-03-01] MEDS: LEVOTHYROXINE 25 MCG, LEVOTHYROXINE 100 MCG PO SCH (06:33)
[2018-03-01] MEDS: PRENATAL VITAMINS W/ FOLIC ACID TABLET (FP) PO SCH (09:45)
[2018-03-01] MEDS: ESCITALOPRAM OXALATE 20 MG TABLET (FP) PO SCH (09:46)
[2018-03-01] MEDS: LISINOPRIL 10 MG TABLET (FP) PO SCH ×2 (09:46→21:11)
[2018-03-01] MEDS: BUPRENORPHINE/NALOXONE 8 MG/2 MG FILM PACKET SL SCH (09:46)
[2018-03-01] MEDS: MUPIROCIN CA 2% TOPICAL CREAM 15 GM TUBE TP SCH ×2 (09:46→21:12)
--- NOTE | 2018-03-01 13:10 | PN ---
S Progress Note Note: Patient requesting flu vaccine prior discharge. Order placed.
[2018-03-01] MEDS: THIAMINE HCL 100 MG TABLET (FP) PO SCH (21:11)
[2018-03-01] MEDS: MELATONIN 5 MG TABLETS PO SCH (21:11)
[2018-03-01] MEDS: QUEtiapine FUMARATE 100 MG TABLET (FP) PO SCH (21:11)
[2018-03-02] MEDS ORDERED: LEVOTHYROXINE NA 100 MCG TABLET (FP) ONE (03:25)
[2018-03-02] MEDS ORDERED: LEVOTHYROXINE NA 25 MCG TABLET (FP) ONE (03:25)
[2018-03-02] MEDS: LEVOTHYROXINE 25 MCG, LEVOTHYROXINE 100 MCG PO SCH (06:52)
[2018-03-02] MEDS ORDERED: PT OWN MED DRAWER 7, Y5N ONE (08:56)
[2018-03-02] MEDS: ESCITALOPRAM OXALATE 20 MG TABLET (FP) PO SCH (09:42)
[2018-03-02] MEDS: LISINOPRIL 10 MG TABLET (FP) PO SCH ×2 (09:42→21:18)
[2018-03-02] MEDS: PRENATAL VITAMINS W/ FOLIC ACID TABLET (FP) PO SCH (09:42)
[2018-03-02] MEDS: MUPIROCIN CA 2% TOPICAL CREAM 15 GM TUBE TP SCH ×2 (09:43→21:17)
[2018-03-02] MEDS: BUPRENORPHINE/NALOXONE 8 MG/2 MG FILM PACKET SL SCH (09:44)
[2018-03-02] MEDS ORDERED: FLU VACCINE QUAD 60 MCG/0.5 ML (MDV 17-18) IM ONE (12:00)
[2018-03-02] MEDS: MELATONIN 5 MG TABLETS PO SCH (21:17)
[2018-03-02] MEDS: QUEtiapine FUMARATE 100 MG TABLET (FP) PO SCH (21:18)
[2018-03-02] MEDS: THIAMINE HCL 100 MG TABLET (FP) PO SCH (21:18)
[2018-03-03] MEDS: COLLOIDAL OATMEAL 1 BAR EACH TP PRN (00:02)
[2018-03-03] MEDS ORDERED: LEVOTHYROXINE NA 100 MCG TABLET (FP) ONE (03:15)
[2018-03-03] MEDS ORDERED: LEVOTHYROXINE NA 25 MCG TABLET (FP) ONE (03:15)
[2018-03-03] MEDS: LEVOTHYROXINE 25 MCG, LEVOTHYROXINE 100 MCG PO SCH (06:27)
[2018-03-03] MEDS: PRENATAL VITAMINS W/ FOLIC ACID TABLET (FP) PO SCH (09:34)
[2018-03-03] MEDS: MUPIROCIN CA 2% TOPICAL CREAM 15 GM TUBE TP SCH ×2 (09:34→21:17)
[2018-03-03] MEDS: LISINOPRIL 10 MG TABLET (FP) PO SCH ×2 (09:34→21:17)
[2018-03-03] MEDS: ESCITALOPRAM OXALATE 20 MG TABLET (FP) PO SCH (09:34)
[2018-03-03] MEDS: BUPRENORPHINE/NALOXONE 8 MG/2 MG FILM PACKET SL SCH (09:34)
[2018-03-03] MEDS: MELATONIN 5 MG TABLETS PO SCH (21:17)
[2018-03-03] MEDS: THIAMINE HCL 100 MG TABLET (FP) PO SCH (21:17)
[2018-03-03] MEDS: QUEtiapine FUMARATE 100 MG TABLET (FP) PO SCH (21:17)
[2018-03-04] MEDS ORDERED: LEVOTHYROXINE NA 100 MCG TABLET (FP) ONE (03:04)
[2018-03-04] MEDS ORDERED: LEVOTHYROXINE NA 25 MCG TABLET (FP) ONE (03:04)
[2018-03-04] MEDS: LEVOTHYROXINE 25 MCG, LEVOTHYROXINE 100 MCG PO SCH (06:45)
[2018-03-04] MEDS ORDERED: PT OWN MED DRAWER 7, Y5N ONE (08:21)
[2018-03-04] MEDS: ESCITALOPRAM OXALATE 20 MG TABLET (FP) PO SCH (10:00)
[2018-03-04] MEDS: LISINOPRIL 10 MG TABLET (FP) PO SCH ×2 (10:00→21:13)
[2018-03-04] MEDS: PRENATAL VITAMINS W/ FOLIC ACID TABLET (FP) PO SCH (10:00)
[2018-03-04] MEDS: BUPRENORPHINE/NALOXONE 8 MG/2 MG FILM PACKET SL SCH (10:00)
[2018-03-04] MEDS: MUPIROCIN CA 2% TOPICAL CREAM 15 GM TUBE TP SCH ×2 (10:00→21:14)
--- NOTE | 2018-03-04 16:25 | PN ---
Psychiatric Progress Note Vital Signs: Vital Signs Period Temp Pulse Resp BP Sys/Gomez Pulse Ox Last 24 Hr 97.8 F 90-91 -18 125-137/75-86 Date of Session: 03/04/18 Chief Complaint:: My sleep is a big problem. HPI: Patient addressed Opioid dependence comorbid with Bipolar disorder. ROS: Hep C,Bronchitis,Anemia. Current Medications: Active Medications Generic Name Dose Route Start Last Admin Trade Name Freq PRN Reason Stop Dose Admin Acetaminophen 650 mg 02/18/18 14:57 02/19/18 09:49 Tylenol - PO 650 mg Q4H PRN Administration FEVER Al Hydroxide/Mg Hydroxide 30 ml 02/18/18 14:57 Mylanta Oral Suspension - PO Q6H PRN DYSPEPSIA Albuterol Sulfate 2 puff 02/18/18 15:00 Ventolin Hfa Inhaler - IH Q4H PRN WHEEZING Buprenorphine/Naloxone 1 each 02/26/18 10:00 03/04/18 10:00 Suboxone 8mg/2mg Sl Film - SL 1 each DAILY DEBRA Administration Colloidal Oatmeal 1 applic 02/19/18 07:33 03/03/18 00:02 Aveeno Soap - TP 1 applic DAILY PRN Administration HYGEINE Cyclobenzaprine HCl 10 mg 02/18/18 15:01 02/19/18 06:50 Flexeril - PO 10 mg TID PRN Administration MUSCLE SPASMS Diphenhydramine HCl 50 mg 02/18/18 16:53 02/19/18 00:34 Benadryl - PO 50 mg HS PRN Administration INSOMNIA Escitalopram Oxalate 20 mg 02/18/18 17:15 03/04/18 10:00 Lexapro - PO 20 mg DAILY DEBRA Administration Eucalyptus/Menthol/Phenol/Sorbitol 1 each 02/18/18 14:57 Cepastat Lozenge - MM Q4H PRN SORE THROAT Guaifenesin 10 ml 02/18/18 14:57 Robitussin Dm - PO Q6H PRN COUGH Hydroxyzine Pamoate 50 mg 02/18/18 14:57 02/19/18 02:41 Vistaril - PO 50 mg Q4H PRN Administration AGITATION Ibuprofen 400 mg 02/18/18 14:57 Motrin - PO Q6H PRN Pain level 4-6 Levothyroxine Sodium 25 mcg/ 125 mcg 02/19/18 07:00 03/04/18 06:45 Levothyroxine Sodium 100 mcg PO 125 mcg DAILY@0700 DEBRA Administration Lisinopril 10 mg 02/19/18 22:00 03/04/18 10:00 Prinivil PO 10 mg BID DEBRA Administration Loperamide HCl 4 mg 02/18/18 14:57 Imodium - PO Q6H PRN DIARRHEA Magnesium Citrate 300 ml 02/18/18 14:57 Citroma - PO Q48H PRN CONSTIPATION Magnesium Hydroxide 30 ml 02/18/18 14:57 02/26/18 12:57 Milk Of Magnesia - PO 30 ml DAILY PRN Administration CONSTIPATION Melatonin 5 mg 02/18/18 22:00 03/03/18 21:17 Melatonin PO 5 mg HS DEBRA Administration Mupirocin 1 applic 02/21/18 13:45 03/04/18 10:00 Bactroban 2% Cream - TP 1 applic BID DEBRA Administration Nicotine Polacrilex 2 mg 02/18/18 14:57 Nicorette Gum - BUC Q2H PRN NICOTINE REPLACEMENT RX Multivit/Folic Acid/Iron 1 tab 02/19/18 10:00 03/04/18 10:00 Vitamins (Sjr) - PO 1 tab DAILY DEBRA Administration Pseudoephedrine/Triprolidine 1 combo 02/18/18 14:57 Actifed - PO TID PRN NASAL CONGESTION Thiamine HCl 100 mg 02/18/18 22:00 03/03/18 21:17 Vitamin B1 - PO 100 mg HS DEBRA Administration Current Side Effect: No Lab tests ordered: No Lab tests reviewed: Yes Provider note:: Chat was revuewed and patient was seen in my office to address her depressed mood,anxiety and sleeping difficulties.She reports sadness,crying spells,stilll mood instability. medications ,treatment plan has been discussed with the patient .She will continue Lexapro 20 mg po daily and Neurontin 300 mg po tid.SEroquel 100 mg po hs will be adjusted to 150 mg po hs. Supportive therapy provided focusing on relaxation techniques. Total face to face time:: 30 Mental Status Exam - Mental Status Exam Alert and Oriented to: Time, Place, Person Cognitive Function: Grossly Intact Patient Appearance: Well Groomed Mood: Nervous, Apprehensive, Expansive Affect: Mood Congruent, Labile Patient Behavior: Cooperative Speech Pattern: Clear Voice Loudness: Normal Thought Process: Goal Oriented Thought Disorder: Not Present Hallucinations: Denies Suicidal Ideation: Denies Homicidal Ideation: Denies Insight/Judgement: Fair Sleep: Difficulty falling asleep Appetite: Good Muscle strength/Tone: Normal Gait/Station: Normal Psychiatric Treatment Plan - Problem List (1) Hepatitis C virus Current Visit: Yes (2) Acute bronchitis Current Visit: Yes (3) Opioid dependence on agonist therapy Current Visit: Yes (4) Bipolar disorder Current Visit: Yes (5) History of anemia Current Visit: Yes
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
[2018-03-04] MEDS: LIDOCAINE 5% TOPICAL PATCH TP SCH (17:31)
[2018-03-04] MEDS: QUEtiapine FUMARATE 50 MG TABLET PO SCH (21:13)
[2018-03-04] MEDS: THIAMINE HCL 100 MG TABLET (FP) PO SCH (21:13)
[2018-03-04] MEDS: MELATONIN 5 MG TABLETS PO SCH (21:14)
[2018-03-05] MEDS ORDERED: LEVOTHYROXINE NA 100 MCG TABLET (FP) ONE (05:52)
[2018-03-05] MEDS ORDERED: LEVOTHYROXINE NA 25 MCG TABLET (FP) ONE (05:52)
[2018-03-05] MEDS: LEVOTHYROXINE 25 MCG, LEVOTHYROXINE 100 MCG PO SCH (06:41)
[2018-03-05] MEDS: ESCITALOPRAM OXALATE 20 MG TABLET (FP) PO SCH (10:07)
[2018-03-05] MEDS: BUPRENORPHINE/NALOXONE 8 MG/2 MG FILM PACKET SL SCH (10:07)
[2018-03-05] MEDS: LISINOPRIL 10 MG TABLET (FP) PO SCH ×2 (10:07→21:28)
[2018-03-05] MEDS: PRENATAL VITAMINS W/ FOLIC ACID TABLET (FP) PO SCH (10:07)
[2018-03-05] MEDS: MUPIROCIN CA 2% TOPICAL CREAM 15 GM TUBE TP SCH ×2 (10:08→21:31)
[2018-03-05] MEDS: LIDOCAINE 5% TOPICAL PATCH TP SCH (10:08)
[2018-03-05] MEDS ORDERED: PT OWN MED DRAWER 7, Y5N ONE ×2 (10:59→21:31)
[2018-03-05] MEDS: QUEtiapine FUMARATE 50 MG TABLET PO SCH (21:28)
[2018-03-05] MEDS: THIAMINE HCL 100 MG TABLET (FP) PO SCH (21:29)
[2018-03-05] MEDS: LIDOCAINE PATCH REMOVAL MC SCH (21:30)
[2018-03-05] MEDS: MELATONIN 5 MG TABLETS PO SCH (21:32)
[2018-03-06] MEDS ORDERED: LEVOTHYROXINE NA 100 MCG TABLET (FP) ONE (03:09)
[2018-03-06] MEDS ORDERED: LEVOTHYROXINE NA 25 MCG TABLET (FP) ONE (03:10)
[2018-03-06] MEDS: LEVOTHYROXINE 25 MCG, LEVOTHYROXINE 100 MCG PO SCH (06:19)
[2018-03-06] MEDS: PRENATAL VITAMINS W/ FOLIC ACID TABLET (FP) PO SCH (10:15)
[2018-03-06] MEDS: ESCITALOPRAM OXALATE 20 MG TABLET (FP) PO SCH (10:15)
[2018-03-06] MEDS: LISINOPRIL 10 MG TABLET (FP) PO SCH ×2 (10:15→21:28)
[2018-03-06] MEDS: BUPRENORPHINE/NALOXONE 8 MG/2 MG FILM PACKET SL SCH (10:16)
[2018-03-06] MEDS: LIDOCAINE 5% TOPICAL PATCH TP SCH (10:16)
[2018-03-06] MEDS: MUPIROCIN CA 2% TOPICAL CREAM 15 GM TUBE TP SCH ×2 (10:18→21:29)
[2018-03-06] MEDS ORDERED: PT OWN MED DRAWER 7, Y5N ONE (10:18)
--- NOTE | 2018-03-06 14:05 | PN ---
Psychiatric Progress Note Vital Signs: Vital Signs Period Temp Pulse Resp BP Sys/Gomez Pulse Ox Last 24 Hr 98.0 F 78-96 16-18 108-127/71-87 Date of Session: 03/06/18 Chief Complaint:: Discharge Note HPI: Patient addressing Opioid and Sedative Dependence comorbid with Nicotine Dependence and Bipolar Disorder ROS: Anemia, Asthma, HTN, Hep C, Hypothyroidism were medically managed Current Medications: Active Medications Generic Name Dose Route Start Last Admin Trade Name Freq PRN Reason Stop Dose Admin Acetaminophen 650 mg 02/18/18 14:57 02/19/18 09:49 Tylenol - PO 650 mg Q4H PRN Administration FEVER Al Hydroxide/Mg Hydroxide 30 ml 02/18/18 14:57 Mylanta Oral Suspension - PO Q6H PRN DYSPEPSIA Albuterol Sulfate 2 puff 02/18/18 15:00 Ventolin Hfa Inhaler - IH Q4H PRN WHEEZING Buprenorphine/Naloxone 1 each 02/26/18 10:00 03/06/18 10:16 Suboxone 8mg/2mg Sl Film - SL 1 each DAILY DEBRA Administration Colloidal Oatmeal 1 applic 02/19/18 07:33 03/03/18 00:02 Aveeno Soap - TP 1 applic DAILY PRN Administration HYGEINE Cyclobenzaprine HCl 10 mg 02/18/18 15:01 02/19/18 06:50 Flexeril - PO 10 mg TID PRN Administration MUSCLE SPASMS Diphenhydramine HCl 50 mg 02/18/18 16:53 02/19/18 00:34 Benadryl - PO 50 mg HS PRN Administration INSOMNIA Escitalopram Oxalate 20 mg 02/18/18 17:15 03/06/18 10:15 Lexapro - PO 20 mg DAILY DEBRA Administration Eucalyptus/Menthol/Phenol/Sorbitol 1 each 02/18/18 14:57 Cepastat Lozenge - MM Q4H PRN SORE THROAT Guaifenesin 10 ml 02/18/18 14:57 Robitussin Dm - PO Q6H PRN COUGH Hydroxyzine Pamoate 50 mg 02/18/18 14:57 02/19/18 02:41 Vistaril - PO 50 mg Q4H PRN Administration AGITATION Ibuprofen 400 mg 02/18/18 14:57 Motrin - PO Q6H PRN Pain level 4-6 Levothyroxine Sodium 25 mcg/ 125 mcg 02/19/18 07:00 03/06/18 06:19 Levothyroxine Sodium 100 mcg PO 125 mcg DAILY@0700 DEBRA Administration Lidocaine 1 patch 03/04/18 17:30 03/06/18 10:16 Lidoderm Patch - TP 1 patch DAILY DEBRA Administration Lisinopril 10 mg 02/19/18 22:00 03/06/18 10:15 Prinivil PO 10 mg BID DEBRA Administration Loperamide HCl 4 mg 02/18/18 14:57 Imodium - PO Q6H PRN DIARRHEA Magnesium Citrate 300 ml 02/18/18 14:57 Citroma - PO Q48H PRN CONSTIPATION Magnesium Hydroxide 30 ml 02/18/18 14:57 02/26/18 12:57 Milk Of Magnesia - PO 30 ml DAILY PRN Administration CONSTIPATION Melatonin 5 mg 02/18/18 22:00 03/05/18 21:32 Melatonin PO 5 mg HS DEBRA Administration Miscellaneous 1 each 03/05/18 22:00 03/05/18 21:30 Lidoderm Patch Removal MC 1 each DAILY@2200 DEBRA Administration Mupirocin 1 applic 02/21/18 13:45 03/06/18 10:18 Bactroban 2% Cream - TP 1 applic BID DEBRA Administration Nicotine Polacrilex 2 mg 02/18/18 14:57 Nicorette Gum - BUC Q2H PRN NICOTINE REPLACEMENT RX Multivit/Folic Acid/Iron 1 tab 02/19/18 10:00 03/06/18 10:15 Vitamins (Sjr) - PO 1 tab DAILY DEBRA Administration Pseudoephedrine/Triprolidine 1 combo 02/18/18 14:57 Actifed - PO TID PRN NASAL CONGESTION Quetiapine Fumarate 150 mg 03/04/18 22:00 03/05/18 21:28 Seroquel - PO 150 mg HS DEBRA Administration Thiamine HCl 100 mg 02/18/18 22:00 03/05/18 21:29 Vitamin B1 - PO 100 mg HS DEBRA Administration Current Side Effect: No Lab tests ordered: Yes Lab tests reviewed: Yes Provider note:: Patient will be complete this program on 03/07/18. She has met her treatment goals and will continue to address her issues in outpatient treatment at [facility] at [address] [place] [id number]. Told aligner typewriter that from her participation in this program, she has learned the importance of establishing a sober support network in order to maintain abstinence. She responded well to Lexapro 20 mg po daily and Seroquel 150 mg po HS. Scripts for these medications will be electronicaly transmitted to [facility]) at [address] [place] [id number]. She is stable for discharge on 03/07/18 Total face to face time:: 35 Mental Status Exam - Mental Status Exam Alert and Oriented to: Time, Place, Person Cognitive Function: Fair Patient Appearance: Well Groomed Mood: Hopeful, Euthymic Affect: Appropriate Patient Behavior: Cooperative Speech Pattern: Clear Voice Loudness: Normal Thought Process: Intact, Goal Oriented Thought Disorder: Not Present Hallucinations: Denies Suicidal Ideation: Denies Homicidal Ideation: Denies Insight/Judgement: Fair Sleep: Fair Appetite: Good Muscle strength/Tone: Normal Gait/Station: Normal Psychiatric Treatment Plan - Problem List (1) Opioid dependence Current Visit: Yes (2) Sedative hypnotic or anxiolytic dependence Current Visit: Yes (3) Nicotine dependence Current Visit: No (4) Bipolar II disorder Current Visit: No (5) Hepatitis C virus Current Visit: Yes (6) History of anemia Current Visit: Yes (7) Hypertension Current Visit: Yes Qualifiers: Hypertension type: essential hypertension Qualified Code(s): I10 - Essential (primary) hypertension (8) Hypothyroidism Current Visit: Yes Qualifiers: Hypothyroidism type: unspecified Qualified Code(s): E03.9 - Hypothyroidism , unspecified Initial treatment plan: Patient will be discharged tomorrow and referred to [facility] for outpatient treatment
[2018-03-06] MEDS: THIAMINE HCL 100 MG TABLET (FP) PO SCH (21:28)
[2018-03-06] MEDS: QUEtiapine FUMARATE 50 MG TABLET PO SCH (21:28)
[2018-03-06] MEDS: MELATONIN 5 MG TABLETS PO SCH (21:29)
[2018-03-06] MEDS: LIDOCAINE PATCH REMOVAL MC SCH (21:29)
[2018-03-07] MEDS ORDERED: LEVOTHYROXINE NA 100 MCG TABLET (FP) ONE (03:07)
[2018-03-07] MEDS ORDERED: LEVOTHYROXINE NA 25 MCG TABLET (FP) ONE (03:08)
[2018-03-07] MEDS: LEVOTHYROXINE 25 MCG, LEVOTHYROXINE 100 MCG PO SCH (06:24)
[2018-03-07 07:14] VITALS: TEMP 97.9
[2018-03-07] MEDS ORDERED: PT OWN MED DRAWER 7, Y5N ONE (08:27)
[2018-03-07] MEDS: BUPRENORPHINE/NALOXONE 8 MG/2 MG FILM PACKET SL SCH (09:05)
[2018-03-07] MEDS: LISINOPRIL 10 MG TABLET (FP) PO SCH (09:05)
[2018-03-07] MEDS: MUPIROCIN CA 2% TOPICAL CREAM 15 GM TUBE TP SCH (09:05)
[2018-03-07] MEDS: PRENATAL VITAMINS W/ FOLIC ACID TABLET (FP) PO SCH (09:05)
[2018-03-07] MEDS: ESCITALOPRAM OXALATE 20 MG TABLET (FP) PO SCH (09:05)
[2018-03-07] MEDS: LIDOCAINE 5% TOPICAL PATCH TP SCH (09:06)
[2018-03-07 09:21] VITALS: BP 124/80; PULSE 114
== END 2018-03-07 09:45 | disposition home or self-care (01) | DRG 772 ==
LOC: YASAS 10:47 → Y3E 15:14
PROVIDERS: ADMIT Psychiatry & Neurology Psychiatry; ATTEND Psychiatry & Neurology Psychiatry
PROC: HZ42ZZZ Group Counseling for Substance Abuse Treatment, Cognitive-Behavioral (ICD-10-PCS; principal; 2018-02-18)
DX: F11.20 Opioid dependence, uncomplicated (principal); F13.230 Sedative, hypnotic or anxiolytic dependence with withdrawal, uncomplicated; F17.210 Nicotine dependence, cigarettes, uncomplicated; F31.81 Bipolar II disorder; K21.9 Gastro-esophageal reflux disease without esophagitis; E03.9 Hypothyroidism, unspecified; I10 Essential (primary) hypertension; J45.909 Unspecified asthma, uncomplicated; B18.2 Chronic viral hepatitis C; M25.531 Pain in right wrist; J20.9 Acute bronchitis, unspecified; Z86.2 Personal history of diseases of the blood and blood-forming organs and certain disorders involving the immune mechanism; Z91.5 Personal history of self-harm
CPT/HCPCS: 36415; 80053; 81003; 81015; 85027; 86593; 90688; 93005; 93010; J0735

== ENCOUNTER 2018-09-16 11:16 | Inpatient (IN) | payer OTHER ==
[2018-09-16 12:49] VITALS: BMI 27.1
--- NOTE | 2018-09-16 15:56 | HP ---
COWS - Scale Resting Pulse: 0= [place] 80 or Below Sweatin=Flushed/Facial Moisture Restless Observation: 3= Extraneous Movement Pupil Size: 2= Moderately Dilated (4 mm) Bone or Joint Aches: 1= Mild Discomfort Runny Nose/ Eye Tearin= Runny Nose/Eyes GI Upset > 30mins: 2= Nausea/Diarrhea (no diarrhea) Tremor Observation: 2= Slight Tremor Visible Yawning Observation: 1= 1-2x During Session Anxiety or Irritability: 1=Feels Anxious/Irritable Goose Flesh Skin: 0=Smooth Skin COWS Score: 16 Admission ROS [facility] Chief Complaint: Here for heroin withdrawal. Allergies/Adverse Reactions: Allergies Allergy/AdvReac Type Severity Reaction Status Date / Time No Known Allergies Allergy Verified 09/16/18 16:46 History of Present Illness: Here for heroin and opiate detox. States I haven't taken my Suboxone in over a month. Denies blackouts or seizures. This provider spoke w/ Dr. Unruly Jeffrey at [facility] and discussed treatment plan. Dr. Jeffrey is informed of patients' non-compliance w/ Suboxone and that urine toxicolgy is positive for heroin, fentanyl, and oxy and negative for Suboxone. Dr Jeffrey states it is okay to discontinue patient's Suboxone. Upon patient's discharge, patient will be evaluated. Denies blackouts or seizures. Medical Hx: Hypothyroidism, HTN, Asthma, Cardiac Murmur Patient Name: Shannon Hdz Date: 1960 Address: [address] [place] [address] Sex: Female Rx Written Rx Dispensed Drug Quantity Days Supply Prescriber Name 09/09/2018 09/09/2018 suboxone 8 mg-2 mg sl film 60 30 Unruly Jeffrey MD 08/26/2018 09/04/2018 zolpidem tartrate 10 mg tablet 30 30 Steffanie Bolivar MD 08/26/2018 08/27/2018 clonazepam 0.5 mg tablet 90 30 Steffanie Bolivar MD 07/22/2018 08/12/2018 zolpidem tartrate 10 mg tablet 30 30 Steffanie Bolivar MD 08/09/2018 08/12/2018 suboxone 8 mg-2 mg sl film 60 30 Unruly Jeffrey MD 05/06/2018 07/22/2018 zolpidem tartrate 10 mg tablet 30 30 Steffanie Bolivar MD 07/22/2018 07/22/2018 clonazepam 0.5 mg tablet 90 30 Steffanie Bolivar MD 07/11/2018 07/11/2018 suboxone 8 mg-2 mg sl film 60 30 Unruly Jeffrey MD 05/06/2018 07/09/2018 zolpidem tartrate 10 mg tablet 30 30 Steffanie Bolivar MD 05/06/2018 06/10/2018 zolpidem tartrate 10 mg tablet 30 30 LubSteffanie dick MD 06/10/2018 06/10/2018 suboxone 8 mg-2 mg sl film 60 30 Unruly Jeffrey MD 05/07/2018 05/09/2018 suboxone 8 mg-2 mg sl film 60 30 Unruly Jeffrey MD 05/06/2018 05/06/2018 clonazepam 0.5 mg tablet 90 30 Steffanie Bolivar MD 03/19/2018 05/02/2018 zolpidem tartrate 10 mg tablet 30 30 LubSteffanie dick MD 04/09/2018 04/11/2018 suboxone 8 mg-2 mg sl film 60 30 Unruly Jeffrey MD 03/19/2018 03/19/2018 clonazepam 0.5 mg tablet 90 30 Steffanie Bolivar MD 03/19/2018 03/19/2018 zolpidem tartrate 10 mg tablet 30 30 Steffanie Bolivar MD 03/12/2018 03/12/2018 suboxone 8 mg-2 mg sl film 60 30 Jesus Duncan MD 02/02/2018 02/04/2018 clonazepam 0.5 mg tablet 90 30 Steffanie Bolivar MD 02/02/2018 02/04/2018 zolpidem tartrate 10 mg tablet 30 30 Steffanie Bolivar MD 01/25/2018 01/28/2018 suboxone 8 mg-2 mg sl film 60 30 Unruly Jeffrey MD 12/28/2017 12/28/2017 suboxone 8 mg-2 mg sl film 60 30 Jesus Duncan MD 12/04/2017 12/04/2017 clonazepam 0.5 mg tablet 90 30 Steffanie Bolivar MD 11/29/2017 11/29/2017 suboxone 8 mg-2 mg sl film 60 30 Jesus Duncan MD 10/17/2017 10/17/2017 suboxone 8 mg-2 mg sl film 60 30 Araceli Mitchell 10/16/2017 10/16/2017 clonazepam 0.5 mg tablet 90 30 Steffanie Bolivar MD 09/14/2017 09/18/2017 suboxone 8 mg-2 mg sl film 60 30 Dileep Khan MD Exam Limitations: No Limitations - Ebola screening Have you traveled outside of the country in the last 21 days: No Have you had contact with anyone from an Ebola affected area: No Have you been sick,other than usual withdrawal symptoms: No Do you have a fever: No - Review of Systems Constitutional: Chills, Diaphoresis, Changes in sleep, Unexplained wgt Loss (r/ t drug use) EENT: reports: Blurred Vision (Wears glasses), Nose Congestion (r/t withdrawal) Respiratory: reports: Cough (x 1 month. Productive whitish phlegm.), SOB with Exertion (W/ climbing stairs) Cardiac: reports: Other (Hx Heart Murmur. Denies chest pain.) GI: reports: Constipated (Takes 'dates' BM's every 2 days.), Nausea (r/t withdrawal) : reports: No Symptoms Reported Musculoskeletal: reports: Back Pain (r/t withdrawal), Joint Pain (r/t withdrawal ) Integumentary: reports: No Symptoms Reported Neuro: reports: Headache (r/t withdrawal), Tremors (r/t withdrawal) Endocrine: reports: Other (On thyroid medications) Hematology: reports: No Symptoms Reported Psychiatric: reports: Judgement Intact, Orientated x3, Agitated, Anxious, Depressed (Denies thoughts of harming self or others.) Patient History - Patient Medical History Hx Anemia: Yes (was given iron pills) Hx Asthma: Yes (ON MDI) Hx Chronic Obstructive Pulmonary Disease (COPD): No Hx Cancer: No Hx Cardiac Disorders: Yes (HEART MURMER) Hx Congestive Heart Failure: No Hx Hypertension: No Hx Hypercholesterolemia: No Hx Pacemaker: No HX Cerebrovascular Accident: No Hx Seizures: No Hx Dementia: No Hx Diabetes: No Hx Gastrointestinal Disorders: Yes (GASTRITIS) Hx Liver Disease: No Hx Genitourinary Disorders: No Hx Sexually Transmitted Disorders: No Hx Renal Disease (ESRD): No Hx Thyroid Disease: Yes (HYPOTHYROIDISM -ON SYNTHROID) Hx Human Immunodeficiency Virus (HIV): No (NEGATIVE HX, LAST 03/09/2017) Hx Hepatitis C: Yes (treated with SVR 2 years ago) Hx Depression: Yes Hx Suicide Attempt: Yes (X2) Hx Bipolar Disorder: Yes Hx Schizophrenia: No - Patient Surgical History Past Surgical History: Yes Hx Neurologic Surgery: No Hx Cataract Extraction: No Hx Cardiac Surgery: No Hx Lung Surgery: No Hx Breast Surgery: No Hx Breast Biopsy: No Hx Abdominal Surgery: No Hx Appendectomy: Yes (7 or 8 yo) Hx Cholecystectomy: No Hx Genitourinary Surgery: No Hx Section: No Hx Orthopedic Surgery: No Hx Hysterectomy: No Anesthesia Reaction: No - PPD History Date: 05/12/17 Results: 0 MM PPD to be Administered?: Yes - Reproductive History Last Menstrual Period: 12/30/11 Patient : No - Smoking Cessation Smoking history: Current every day smoker Have you smoked in the past 12 months: Yes Aproximately how many cigarettes per day: 4 If you are a former smoker, when did you quit?: february 2014 Cigars Per Day: 0 Hx Chewing Tobacco Use: No Initiated information on smoking cessation: Yes 'Breaking Loose' booklet given: 09/16/18 - Substance & Tx. History Hx Alcohol Use: Yes Hx Substance Use: Yes Substance Use Type: Heroin Hx Substance Use Treatment: Yes (detox, rehab, Suboxone) - Substances Abused Heroin Route: Injection Frequency: Daily Amount used: 6 BAGS Age of first use: 20 Date of Last Use: 09/16/18 Family Disease History - Family Disease History Family Disease History: Diabetes: Father (), Mother (depression;HTN, ), Sister (depression; liver and kidney problems), Heart Disease: Mother , Sister, Other: Father, Mother, Sister Admission Physical Exam [facility] - Vital Signs Vital Signs: Vital Signs - 24 hr 09/16/18 12:47 Temperature 96.6 F L Pulse Rate 76 Respiratory 20 Rate Blood Pressure 154/101 H - Physical General Appearance: Yes: Moderate Distress, Tremorous, Sweating, Anxious HEENTM: Yes: EOMI, Hearing grossly Normal, MAI, Pharynx Normal Respiratory: Yes: Chest Non-Tender, Wheezing (Negro inspir/expir wheeze) Neck: Yes: No masses,lesions,Nodules, Supple Breast: Yes: Breast Exam Deferred Cardiology: Yes: Regular Rhythm, Regular Rate, Murmur Abdominal: Yes: Non Tender, Soft, Increased Bowel Sounds Genitourinary: Yes: Within Normal Limits Back: Yes: Normal Inspection Musculoskeletal: Yes: full range of Motion, Gait Steady Extremities: Yes: Normal Capillary Refill Neurological: Yes: garden center manager II-XII NML intact, Fully Oriented, Alert, Motor Strength 5/5, Normal Mood/Affect Integumentary: Yes: Normal Color, Dry (Dry skin w/ decreased skin turgor.), Warm Lymphatic: Yes: Within Normal Limits - Diagnostic (1) Acute asthma exacerbation Current Visit: Yes Status: Acute Qualifiers: Asthma severity: moderate Asthma persistence: unspecified Qualified Code( s): J45.901 - Unspecified asthma with (acute) exacerbation (2) Opioid dependence Current Visit: Yes Status: Chronic Qualifiers: Substance use status: in withdrawal Qualified Code(s): F11.23 - Opioid dependence with withdrawal (3) GERD (gastroesophageal reflux disease) Current Visit: Yes Status: Chronic Qualifiers: Esophagitis presence: without esophagitis Qualified Code(s): K21.9 - Gastro -esophageal reflux disease without esophagitis (4) Hypothyroidism Current Visit: Yes Status: Chronic Qualifiers: Hypothyroidism type: unspecified Qualified Code(s): E03.9 - Hypothyroidism , unspecified (5) Nicotine dependence Current Visit: Yes Status: Chronic Qualifiers: Nicotine product type: cigarettes Substance use status: in withdrawal Qualified Code(s): F17.213 - Nicotine dependence, cigarettes, with withdrawal Cleared for Admission [facility] - Detox or Rehab [facility] Level of Care: Medically Managed Detox Regimen/Protocol: Methadone [facility] Breath Alcohol Content Breath Alcohol Content: 0 Urine Pregancy Test - Result Urine Test Results: Negative- NO Line Present Urine Drug Screen - Results Drug Screen Negative: No Urine Drug Screen Results: OPI-Opiates, MTD-Methadone, OXY-Oxycodone, FEN- Fentanyl
[2018-09-16] MEDS ORDERED: NICOTINE POLACRILEX 2 MG GUM BC PRN (17:50)
[2018-09-16] MEDS ORDERED: MAG HYDROX/AL HYDROX/SIMETH 30 ML UNIT-DOSE CUP PO PRN (17:50)
[2018-09-16] MEDS ORDERED: LOPERAMIDE HCL 2 MG CAPSULE PO PRN (17:50)
[2018-09-16] MEDS ORDERED: MAGNESIUM CITRATE 300 ML BOTTLE PO PRN (17:50)
[2018-09-16] MEDS ORDERED: MAGNESIUM HYDROX 2400MG/30ML ORAL SUSPENSION 30 ML CUP PO PRN (17:50)
[2018-09-16] MEDS ORDERED: ACETAMINOPHEN 325 MG TABLET (FP) PO PRN (17:50)
[2018-09-16] MEDS ORDERED: MENTHOL/PHENOL 1 EACH UD MM PRN (17:50)
[2018-09-16] MEDS ORDERED: ALBUTEROL SO4 0.083% IH SOL 2.5 MG/3 ML VIAL.NEB. NEB PRN (17:52)
[2018-09-16] MEDS ORDERED: guaiFENesin 200 MG/10 ML 10 ML UNIT-DOSE CUPS PO PRN (17:53)
[2018-09-16] MEDS ORDERED: METHADONE HCL 10 MG TABLET (FOR DETOX USE ONLY) PO ONE ×2 (18:30→23:00)
[2018-09-16] MEDS: diazePAM 5 MG TABLET PO PRN (18:56)
[2018-09-16] MEDS: IBUPROFEN 400 MG TABLET (FP) PO PRN (19:02)
[2018-09-16] MEDS ORDERED: cloNIDine HCL 0.1 MG TABLET PO ONE (21:42)
[2018-09-16] MEDS: THIAMINE HCL 100 MG TABLET (FP) PO SCH (22:30)
[2018-09-16 23:48] LABS: URINE APPEARANCE CLEAR; URINE BILIRUBIN NEGATIVE (<2.0 mg/dL); URINE COLOR YELLOW; URINE GLUCOSE (UA) NEGATIVE (NEGATIVE); URINE KETONE NEGATIVE (NEGATIVE); URINE LEUK ESTERASE 1+ (NEGATIVE); URINE NITRITE NEGATIVE (NEGATIVE); URINE PROTEIN NEGATIVE (NEGATIVE)
[2018-09-17 00:18] LABS: EPI CELLS RARE /HPF (FEW)
[2018-09-17] MEDS: diazePAM 5 MG TABLET PO PRN ×2 (05:21→15:40)
[2018-09-17] MEDS ORDERED: LEVOTHYROXINE NA 100 MCG TABLET (FP) ONE (06:10)
[2018-09-17] MEDS ORDERED: LEVOTHYROXINE NA 25 MCG TABLET (FP) ONE (06:10)
[2018-09-17] MEDS ORDERED: LEVOTHYROXINE NA 125 MCG TABLET (FP) PO SCH (07:00)
[2018-09-17] MEDS: LEVOTHYROXINE 100 MCG, LEVOTHYROXINE 25 MCG PO SCH (07:40)
[2018-09-17] MEDS ORDERED: TRIMETHOBENZAMIDE HCL 200MG/2ML INJ IM ONE ×2 (09:51→19:23)
[2018-09-17] MEDS ORDERED: METHADONE HCL 10 MG TABLET (FOR DETOX USE ONLY) PO ONE (10:00)
[2018-09-17] MEDS ORDERED: LISINOPRIL PO SCH (10:00)
[2018-09-17] MEDS ORDERED: METHADONE DETOX 10 MG/1 ML [20ML VIAL] IM ONE (10:09)
[2018-09-17] MEDS: LISINOPRIL 10 MG TABLET (FP) PO SCH (10:59)
[2018-09-17] MEDS: PANTOPRAZOLE 40 MG TABLET (FP) PO SCH (10:59)
[2018-09-17] MEDS: PRENATAL VITAMINS W/ FOLIC ACID TABLET (FP) PO SCH (10:59)
[2018-09-17] MEDS: NICOTINE 14 MG/24 HOURS TOPICAL PATCH TD SCH (11:00)
--- NOTE | 2018-09-17 11:52 | PN ---
[facility] COWS - Scale Resting Pulse: 2= ID [id number] Sweatin= Chills/Flushing Restless Observation: 0= Sits Still Pupil Size: 0= Normal to Room Light Bone or Joint Aches: 2= Severe Diffuse Aches Runny Nose/ Eye Tearin= None GI Upset > 30mins: 5=Frequent Vomit/Diarrhea Tremor Observation of Outstretched Hands: 2= Slight Tremor Visible Yawning Observation: 0= None Anxiety or Irritability: 1=Feels Anxious/Irritable Goose Flesh Skin: 0=Smooth Skin COWS Score: 13 BHS Progress Note (SOAP) Subjective: PATIENT VOMITING MULTIPLE TIMES, C/O CHILLS/SHAKES. Objective: 09/17/18 11:50 Vital Signs Period Temp Pulse Resp BP Sys/Gomez Pulse Ox Last 24 Hr 96.6 F-98.2 F 76-111 16-20 133-187/93-107 Laboratory Tests 09/16/18 22:22 Urine Color Yellow Urine Appearance Clear Urine pH 6.0 Ur Specific [place] 1.023 Urine Protein Negative Urine Glucose (UA) Negative Urine Ketones Negative Urine Blood Negative Urine Nitrite Negative Urine Bilirubin Negative Urine Urobilinogen 2.0 H Ur Leukocyte Esterase 1+ H Urine WBC (Auto) 29 Urine RBC (Auto) 25 Ur Epithelial Cells Rare SKIN WARM AND MOIST RESTLESS/ANXIOUS VOMITED MULTIPLE TIMES ALERT AND ORIENTED X 3 EXT FULL ROM Assessment: 09/17/18 11:51 WITHDRAWAL SX Plan: MTD DOSE CHANGED TO 10MG IM TIGAN 200MG IM ORDERED FOR VOMITING CONTINUE TO MONITOR CLINICALLY
[2018-09-17] MEDS: ONDANSETRON *ODT* 4 MG TABLET SL PRN (12:02)
--- NOTE | 2018-09-17 12:59 | EKG ---
Test Reason : Blood Pressure : / mmHG Vent. Rate : 070 BPM Atrial Rate : 070 BPM P-R Int : 152 ms QRS Dur : 086 ms QT Int : 402 ms P-R-T Axes : 078 017 046 degrees QTc Int : 434 ms NORMAL SINUS RHYTHM NORMAL ECG Confirmed by MD LEATHA, DAMIAN ([id number]) on 09/17/2018 12:59:02 PM Referred By: Confirmed By:DAMIAN ZHANG MD
--- NOTE | 2018-09-17 14:03 | CONSULT ---
[facility] Psych[facility] Consult - Data Date of interview: 09/17/18 Identifying data: Patient approched for psychiatric consultation. She refused, stated to instructional writer, " I don't want to talk to you." Nursing staff informed.
--- NOTE | 2018-09-17 19:24 | PN ---
[facility] Progress Note Note: Vital Signs Temperature 98.9 F 09/17/18 17:32 Pulse Rate 77 09/17/18 17:32 Respiratory Rate 19 09/17/18 17:32 Blood Pressure 154/92 09/17/18 17:32 O2 Sat by Pulse Oximetry (%) nausea vomiting and back pain one time dose tigan IM flexeril PRN fluids as tolerated continue to monitor
[2018-09-17] MEDS ORDERED: TRIMETHOBENZAMIDE HCL 200MG/2ML INJ IM PRN (19:25)
[2018-09-17] MEDS: THIAMINE HCL 100 MG TABLET (FP) PO SCH (22:30)
--- NOTE | 2018-09-17 23:22 | PN ---
S Progress Note Note: Pt's intractable n/v has not resolved with the administration of Tigan at 19: 32. Tylenol administered at 22:20 however she is unable to tolerate oral intake. Temp. is currently 100.3F, BP: 182/102, P: 84. Pt. c/o malaise, body aches and chills. Pt. to be sent to the ER for further evaluation. Report given to Dr. Nunes.
[2018-09-18] MEDS ORDERED: LEVOTHYROXINE NA 25 MCG TABLET (FP) ONE (09:17)
[2018-09-18] MEDS ORDERED: LEVOTHYROXINE NA 100 MCG TABLET (FP) ONE (09:17)
[2018-09-18] MEDS: ONDANSETRON *ODT* 4 MG TABLET SL PRN (09:35)
[2018-09-18] MEDS: LEVOTHYROXINE 100 MCG, LEVOTHYROXINE 25 MCG PO SCH (09:35)
[2018-09-18] MEDS: CYCLOBENZAPRINE HCL 10 MG TABLET (FP) PO PRN (09:36)
[2018-09-18] MEDS: diazePAM 5 MG TABLET PO PRN ×3 (09:36→22:39)
[2018-09-18] MEDS: LISINOPRIL 10 MG TABLET (FP) PO SCH (09:36)
[2018-09-18] MEDS ORDERED: METHADONE HCL 5 MG TABLET (FOR DETOX USE ONLY) PO ONE (10:00)
--- NOTE | 2018-09-18 10:15 | PN ---
BHS CIWA - CIWA Score Muscle Tremors: 2 Paroxysmal Sweats: 2 BHS COWS - Scale Resting Pulse: 1= MS 81-100 Sweatin= Chills/Flushing Restless Observation: 1= Difficult to Sit Still Pupil Size: 1= Pupils >than Normal Bone or Joint Aches: 1= Mild Discomfort Runny Nose/ Eye Tearin= Nasal Congestion GI Upset > 30mins: 1= Stomach Cramp Tremor Observation of Outstretched Hands: 1= Tremor [place], Not Seen Yawning Observation: 0= None Anxiety or Irritability: 1=Feels Anxious/Irritable Goose Flesh Skin: 0=Smooth Skin COWS Score: 9 BHS Progress Note (SOAP) Subjective: INTERRUPTED SLEEP, HEADACHE, -PT NAUSEA AND VOMITING MUCH IMPROVED Objective: 09/18/18 10:15 Vital Signs Temperature 98.1 F 09/18/18 09:25 Pulse Rate 96 H 09/18/18 09:25 Respiratory Rate 18 09/18/18 09:25 Blood Pressure 184/109 H 09/18/18 09:25 O2 Sat by Pulse Oximetry (%) Laboratory Tests 09/16/18 22:22 Urine Color Yellow Urine Appearance Clear Urine pH 6.0 Ur Specific [place] 1.023 Urine Protein Negative Urine Glucose (UA) Negative Urine Ketones Negative Urine Blood Negative Urine Nitrite Negative Urine Bilirubin Negative Urine Urobilinogen 2.0 H Ur Leukocyte Esterase 1+ H Urine WBC (Auto) 29 Urine RBC (Auto) 25 Ur Epithelial Cells Rare PENDING LAbs 09/18/18 10:19 pt aox3 in nad ambulating , no vomiting Assessment: 09/18/18 10:20 withdrawal sx's htn Plan: cont. detox. clonidine 0.1mg po now increase fluids tsh
[2018-09-18] MEDS ORDERED: cloNIDine HCL 0.1 MG TABLET PO ONE ×2 (10:22→23:23)
[2018-09-18] MEDS: PRENATAL VITAMINS W/ FOLIC ACID TABLET (FP) PO SCH (11:54)
[2018-09-18] MEDS: NICOTINE 14 MG/24 HOURS TOPICAL PATCH TD SCH (11:54)
[2018-09-18] MEDS: PANTOPRAZOLE 40 MG TABLET (FP) PO SCH (11:54)
[2018-09-18] MEDS: IBUPROFEN 400 MG TABLET (FP) PO PRN (15:18)
[2018-09-18] MEDS: THIAMINE HCL 100 MG TABLET (FP) PO SCH (22:40)
--- NOTE | 2018-09-18 23:26 | PN ---
S Progress Note Note: Patient's blood pressure is B/P 157/110. Patient is asymptomatic Vital Signs Temperature 98.7 F 09/18/18 22:34 Pulse Rate 109 H 09/18/18 22:34 Respiratory Rate 19 09/18/18 22:34 Blood Pressure 157/110 H 09/18/18 22:34 O2 Sat by Pulse Oximetry (%) Action: Clonidine 0.1mg oral ordered
[2018-09-19] MEDS: LEVOTHYROXINE 100 MCG, LEVOTHYROXINE 25 MCG PO SCH (06:40)
[2018-09-19] MEDS ORDERED: METHADONE HCL 5 MG TABLET (FOR DETOX USE ONLY) PO ONE (10:00)
[2018-09-19] MEDS: diazePAM 5 MG TABLET PO PRN (10:21)
[2018-09-19] MEDS: PANTOPRAZOLE 40 MG TABLET (FP) PO SCH (10:21)
[2018-09-19] MEDS: LISINOPRIL 10 MG TABLET (FP) PO SCH ×2 (10:21→22:13)
[2018-09-19] MEDS: PRENATAL VITAMINS W/ FOLIC ACID TABLET (FP) PO SCH (10:22)
[2018-09-19] MEDS: CYCLOBENZAPRINE HCL 10 MG TABLET (FP) PO PRN (10:22)
[2018-09-19] MEDS: NICOTINE 14 MG/24 HOURS TOPICAL PATCH TD SCH (10:22)
[2018-09-19 11:16] LABS: ALBUMIN 4.1 g/dl (3.4-5.0); ALK PHOS 80 U/L (45-117); ANION GAP 11 MMOL/L (8-16); BILIRUBIN,TOTAL 0.7 mg/dL (0.2-1); BLOOD UREA NITROGEN 19 mg/dL (7-18); CALCIUM 9.4 mg/dL (8.5-10.1); CHLORIDE 102 mmol/L (98-107); CO2 27 mmol/L (21-32); CREATININE 0.9 mg/dL (0.55-1.3); GLUCOSE,RANDOM 105 mg/dL (74-106); POTASSIUM 3.8 mmol/L (3.5-5.1); SGOT/AST 33 U/L (15-37); SGPT/ALT 21 U/L (13-61); SODIUM 140 mmol/L (136-145); TOT PROT 8.2 g/dl (6.4-8.2)
--- NOTE | 2018-09-19 11:21 | PN ---
[facility] Progress Note (SOAP) Subjective: joints pain muscle ache sweat nausea report in suboxone program x 1 year wants to return to suboxone program Objective: 09/19/18 11:33 Vital Signs Temperature 98.1 F 09/19/18 09:39 Pulse Rate 89 09/19/18 09:39 Respiratory Rate 18 09/19/18 09:39 Blood Pressure 161/100 09/19/18 09:39 O2 Sat by Pulse Oximetry (%) lisinopril 10 mg bid 09/19/18 11:33 Laboratory Last Values Sodium 140 mmol/L (136-145) 09/19/18 07:00 Potassium 3.8 mmol/L (3.5-5.1) 09/19/18 07:00 Chloride 102 mmol/L (98-107) 09/19/18 07:00 Carbon Dioxide 27 mmol/L (21-32) 09/19/18 07:00 Anion Gap 11 MMOL/L (8-16) 09/19/18 07:00 BUN 19 mg/dL (7-18) H 09/19/18 07:00 Creatinine 0.9 mg/dL (0.55-1.3) 09/19/18 07:00 Creat Clearance w eGFR > 60 (>60) 09/19/18 07:00 Random Glucose 105 mg/dL (74-106) 09/19/18 07:00 Calcium 9.4 mg/dL (8.5-10.1) 09/19/18 07:00 Total Bilirubin 0.7 mg/dL (0.2-1) 09/19/18 07:00 AST 33 U/L (15-37) 09/19/18 07:00 ALT 21 U/L (13-61) 09/19/18 07:00 Alkaline Phosphatase 80 U/L (45-117) 09/19/18 07:00 Total Protein 8.2 g/dl (6.4-8.2) 09/19/18 07:00 Albumin 4.1 g/dl (3.4-5.0) 09/19/18 07:00 Urine Color Yellow 09/16/18 22:22 Urine Appearance Clear 09/16/18 22:22 Urine pH 6.0 (5.0-8.0) 09/16/18 22:22 Ur Specific [place] 1.023 (1.010-1.035) 09/16/18 22: Urine Protein Negative (NEGATIVE) 09/16/18 22: Urine Glucose (UA) Negative (NEGATIVE) 09/16/18: Urine Ketones Negative (NEGATIVE) 09/16/18: Urine Blood Negative (NEGATIVE) 09/16/18: Urine Nitrite Negative (NEGATIVE) 09/16/18: Urine Bilirubin Negative (<2.0 mg/dL) 09/16/18: Urine Urobilinogen 2.0 mg/dL (0.2-1.0) H 09/16/18: Ur Leukocyte Esterase 1+ (NEGATIVE) H 09/16/18: Urine WBC (Auto) 29 /hpf (3-5) 09/16/18: Urine RBC (Auto) 25 /hpf (0-3) 09/16/18:22 Ur Epithelial Cells Rare /HPF (FEW) 09/16/18 22:22 RPR Titer Nonreactive (NONREACTIVE) 09/18/18 07:00 lab noted Assessment: 09/19/18 11:33 withdrawal sx suboxone program hypertension Plan: continue detox increase lisinopril 10 mg bid health teaching on suboxone vs methadone
--- NOTE | 2018-09-19 17:10 | PN ---
[facility] Progress Note Note: Vital Signs - 24 hr 09/18/18 09/18/18 09/19/18 17:29 22:34 00:30 Temperature 98.8 F 98.7 F Pulse Rate 117 H 109 H Respiratory 19 19 18 Rate Blood Pressure 108/79 157/110 H 09/19/18 09/19/18 09/19/18 03:30 07:07 09:39 Temperature 99.1 F 98.1 F Pulse Rate 103 H 89 Respiratory 18 20 18 Rate Blood Pressure 178/111 H 161/100 09/19/18 09/19/18 13:22 17:04 Temperature 98.1 F 99.3 F Pulse Rate 110 H 91 H Respiratory 19 20 Rate Blood Pressure 157/84 194/126 H patient currently in opioid detox asymptomatic elevated BP one time dose clonidie 0.1 mg ordered repeat v/s in 30 min continue to monitor
[2018-09-19] MEDS ORDERED: cloNIDine HCL 0.1 MG TABLET PO ONE (17:30)
[2018-09-19] MEDS: THIAMINE HCL 100 MG TABLET (FP) PO SCH (22:13)
[2018-09-20] MEDS: MELATONIN 5 MG TABLETS PO PRN ×2 (03:13→22:41)
[2018-09-20] MEDS ORDERED: LEVOTHYROXINE NA 100 MCG TABLET (FP) ONE (03:19)
[2018-09-20] MEDS ORDERED: LEVOTHYROXINE NA 25 MCG TABLET (FP) ONE (03:19)
[2018-09-20] MEDS ORDERED: cloNIDine HCL 0.1 MG TABLET PO ONE ×2 (06:10→08:24)
--- NOTE | 2018-09-20 06:12 | PN ---
S Progress Note Note: Patient's blood pressure is B/P 202/118. Patient complained of headache Vital Signs Temperature 97.9 F 09/20/18 06:00 Pulse Rate 87 09/20/18 06:00 Respiratory Rate 22 H 09/20/18 06:00 Blood Pressure 202/118 H 09/20/18 06:00 O2 Sat by Pulse Oximetry (%) Action: Clonidine 0.2mg tablet oral ordered.
[2018-09-20] MEDS: LEVOTHYROXINE 100 MCG, LEVOTHYROXINE 25 MCG PO SCH (06:42)
[2018-09-20] MEDS ORDERED: METHADONE HCL 10 MG TABLET (FOR DETOX USE ONLY) PO ONE (10:00)
[2018-09-20] MEDS: NICOTINE 14 MG/24 HOURS TOPICAL PATCH TD SCH (11:19)
[2018-09-20] MEDS: PRENATAL VITAMINS W/ FOLIC ACID TABLET (FP) PO SCH (11:19)
[2018-09-20] MEDS: LISINOPRIL 10 MG TABLET (FP) PO SCH ×2 (11:20→22:37)
[2018-09-20] MEDS: PANTOPRAZOLE 40 MG TABLET (FP) PO SCH (11:22)
--- NOTE | 2018-09-20 13:46 | PN ---
[facility] Progress Note Note: PATIENT CONTINUES WITH DETOX REGIMEN. EARLY THIS MORNING, PATIENT NOTED WITH BP 202/118. PATIENT WAS ORDERED CLONIDINE 0.3MG PO X ONE BY Carolina WELDON NP. PATIENT DENIES CP, SOB AND DIZZINESS. Laboratory Tests 09/16/18 09/17/18 09/18/18 22:22 Unknown 07:00 Sodium Cancelled Potassium Cancelled Chloride Cancelled Carbon Dioxide Cancelled Anion Gap Cancelled BUN Cancelled Creatinine Cancelled Creat Clearance w eGFR Cancelled Random Glucose Cancelled Calcium Cancelled Total Bilirubin Cancelled AST Cancelled ALT Cancelled Alkaline Phosphatase Cancelled Total Protein Cancelled Albumin Cancelled Urine Color Yellow Urine Appearance Clear Urine pH 6.0 Ur Specific [place] 1.023 Urine Protein Negative Urine Glucose (UA) Negative Urine Ketones Negative Urine Blood Negative Urine Nitrite Negative Urine Bilirubin Negative Urine Urobilinogen 2.0 H Ur Leukocyte Esterase 1+ H Urine WBC (Auto) 29 Urine RBC (Auto) 25 Ur Epithelial Cells Rare RPR Titer Nonreactive 09/19/18 07:00 Sodium 140 Potassium 3.8 Chloride 102 Carbon Dioxide 27 Anion Gap 11 BUN 19 H Creatinine 0.9 Creat Clearance w eGFR > 60 Random Glucose 105 Calcium 9.4 Total Bilirubin 0.7 AST 33 ALT 21 Alkaline Phosphatase 80 Total Protein 8.2 Albumin 4.1 Urine Color Urine Appearance Urine pH Ur Specific [place] Urine Protein Urine Glucose (UA) Urine Ketones Urine Blood Urine Nitrite Urine Bilirubin Urine Urobilinogen Ur Leukocyte Esterase Urine WBC (Auto) Urine RBC (Auto) Ur Epithelial Cells RPR Titer ALERT AND ORIENTED X 3 SKIN WARM AND DRY +PERRLA, EOMS INTACT CAR S1S2 RESP CTA BL EXT FULL ROM, NO EDEMA A/P WITHDRAWAL SX ELEVATED BP CLONIDINE GIVEN ORDERED CONTINUE TO MONITOR CLINICALLY
[2018-09-20] MEDS: THIAMINE HCL 100 MG TABLET (FP) PO SCH (22:36)
[2018-09-21] MEDS ORDERED: LEVOTHYROXINE NA 100 MCG TABLET (FP) ONE (05:34)
[2018-09-21] MEDS ORDERED: LEVOTHYROXINE NA 25 MCG TABLET (FP) ONE (05:34)
[2018-09-21] MEDS ORDERED: METHADONE HCL 5 MG TABLET (FOR DETOX USE ONLY) PO ONE (06:00)
[2018-09-21] MEDS: LEVOTHYROXINE 100 MCG, LEVOTHYROXINE 25 MCG PO SCH (06:58)
[2018-09-21 09:23] VITALS: BP 94/59; PULSE 71; TEMP 97.5
[2018-09-21] MEDS: PANTOPRAZOLE 40 MG TABLET (FP) PO SCH (10:10)
[2018-09-21] MEDS: PRENATAL VITAMINS W/ FOLIC ACID TABLET (FP) PO SCH (10:10)
[2018-09-21] MEDS: NICOTINE 14 MG/24 HOURS TOPICAL PATCH TD SCH (10:11)
[2018-09-21] MEDS: LISINOPRIL 10 MG TABLET (FP) PO SCH (10:11)
--- NOTE | 2018-09-21 11:31 | PN ---
[facility] Progress Note Note: Alert and oriented. States doing well. Vital Signs 09/21/18 09/21/18 06:52 09:23 Temperature 96.8 F L 97.5 F L Pulse Rate 66 71 Respiratory 16 16 Rate Blood Pressure 107/63 94/59 L Current B/P: 126/75, P-74, T-97.9 Resp-16. Laboratory Last Values Sodium 140 mmol/L (136-145) 09/19/18 07:00 Potassium 3.8 mmol/L (3.5-5.1) 09/19/18 07:00 Chloride 102 mmol/L (98-107) 09/19/18 07:00 Carbon Dioxide 27 mmol/L (21-32) 09/19/18 07:00 Anion Gap 11 MMOL/L (8-16) 09/19/18 07:00 BUN 19 mg/dL (7-18) H 09/19/18 07:00 Creatinine 0.9 mg/dL (0.55-1.3) 09/19/18 07:00 Creat Clearance w eGFR > 60 (>60) 09/19/18 07:00 Random Glucose 105 mg/dL (74-106) 09/19/18 07:00 Calcium 9.4 mg/dL (8.5-10.1) 09/19/18 07:00 Total Bilirubin 0.7 mg/dL (0.2-1) 09/19/18 07:00 AST 33 U/L (15-37) 09/19/18 07:00 ALT 21 U/L (13-61) 09/19/18 07:00 Alkaline Phosphatase 80 U/L (45-117) 09/19/18 07:00 Total Protein 8.2 g/dl (6.4-8.2) 09/19/18 07:00 Albumin 4.1 g/dl (3.4-5.0) 09/19/18 07:00 Urine Color Yellow 09/16/18 22:22 Urine Appearance Clear 09/16/18 22:22 Urine pH 6.0 (5.0-8.0) 09/16/18 22:22 Ur Specific [place] 1.023 (1.010-1.035) 09/16/18 22:22 Urine Protein Negative (NEGATIVE) 09/16/18 22:22 Urine Glucose (UA) Negative (NEGATIVE) 09/16/18: Urine Ketones Negative (NEGATIVE) 09/16/18: Urine Blood Negative (NEGATIVE) 09/16/18: Urine Nitrite Negative (NEGATIVE) 09/16/18: Urine Bilirubin Negative (<2.0 mg/dL) 09/16/18: Urine Urobilinogen 2.0 mg/dL (0.2-1.0) H 09/16/18: Ur Leukocyte Esterase 1+ (NEGATIVE) H 09/16/18: Urine WBC (Auto) 29 /hpf (3-5) 09/16/18: Urine RBC (Auto) 25 /hpf (0-3) 09/16/18: Ur Epithelial Cells Rare /HPF (FEW) 09/16/18: RPR Titer Nonreactive (NONREACTIVE) 09/18/18 07:00 Labs reviewed. Will discharge so patient. Patient is accepting rehab recommendation.
--- NOTE | 2018-09-21 11:32 | DS ---
[facility] Detox Discharge Summary Admission Date: 09/16/18 Discharge Date: 09/21/18 - History Present History: Opioid Dependence Additional Comments: Admitted for opiate withdrawal symptoms. Opiate use sisnce age 20. Was non- compliant w/ prescribed Suboxone treatment and was using illicit opiates. - Physical Exam Results Vital Signs: Vital Signs Temperature 97.5 F L 09/21/18 09:23 Pulse Rate 71 09/21/18 09:23 Respiratory Rate 16 09/21/18 09:23 Blood Pressure 94/59 L 09/21/18 09:23 O2 Sat by Pulse Oximetry (%) Pertinent Admission Physical Exam Findings: Admitted for opiate use disorder w/ presence of withdrawal symptoms. Discussed detox regimen w/ patients' Suboxone treatment provider to facilitate coordination of care. Laboratory Last Values Sodium 140 mmol/L (136-145) 09/19/18 07:00 Potassium 3.8 mmol/L (3.5-5.1) 09/19/18 07:00 Chloride 102 mmol/L (98-107) 09/19/18 07:00 Carbon Dioxide 27 mmol/L (21-32) 09/19/18 07:00 Anion Gap 11 MMOL/L (8-16) 09/19/18 07:00 BUN 19 mg/dL (7-18) H 09/19/18 07:00 Creatinine 0.9 mg/dL (0.55-1.3) 09/19/18 07:00 Creat Clearance w eGFR > 60 (>60) 09/19/18 07:00 Random Glucose 105 mg/dL (74-106) 09/19/18 07:00 Calcium 9.4 mg/dL (8.5-10.1) 09/19/18 07:00 Total Bilirubin 0.7 mg/dL (0.2-1) 09/19/18 07:00 AST 33 U/L (15-37) 09/19/18 07:00 ALT 21 U/L (13-61) 09/19/18 07:00 Alkaline Phosphatase 80 U/L (45-117) 09/19/18 07:00 Total Protein 8.2 g/dl (6.4-8.2) 09/19/18 07:00 Albumin 4.1 g/dl (3.4-5.0) 09/19/18 07:00 Urine Color Yellow 10/22/18 22:22 Urine Appearance Clear 09/16/18: Urine pH 6.0 (5.0-8.0) 09/16/18:22 Ur Specific [place] 1.023 (1.010-1.035) 09/16/18:22 Urine Protein Negative (NEGATIVE) 09/16/18: Urine Glucose (UA) Negative (NEGATIVE) 09/16/18: Urine Ketones Negative (NEGATIVE) 09/16/18: Urine Blood Negative (NEGATIVE) 09/16/18: Urine Nitrite Negative (NEGATIVE) 09/16/18: Urine Bilirubin Negative (<2.0 mg/dL) 09/16/18: Urine Urobilinogen 2.0 mg/dL (0.2-1.0) H 09/16/18: Ur Leukocyte Esterase 1+ (NEGATIVE) H 09/16/18: Urine WBC (Auto) 29 /hpf (3-5) 09/16/18: Urine RBC (Auto) 25 /hpf (0-3) 09/16/18: Ur Epithelial Cells Rare /HPF (FEW) 09/16/18: RPR Titer Nonreactive (NONREACTIVE) 09/18/18 07:00 Labs reviewed. - Treatment Hospital Course: Detox Protocol Followed, Detoxed Safely, Responded well, Discharged Condition Good, Rehab Referral Accepted - Medication Discharge Medications: Ambulatory Orders Levothyroxine [Synthroid -] 125 mcg PO DAILY 09/16/18 Lisinopril [Prinivil -] 10 mg PO DAILY 09/16/18 Quetiapine Fumarate [Seroquel] 100 tab PO HS 09/16/18 - Diagnosis (1) Acute asthma exacerbation Status: Chronic Qualifiers: Asthma severity: moderate Asthma persistence: unspecified Qualified Code( s): J45.901 - Unspecified asthma with (acute) exacerbation (2) Opioid dependence Status: Chronic Qualifiers: Substance use status: in remission Qualified Code(s): F11.21 - Opioid dependence, in remission (3) GERD (gastroesophageal reflux disease) Status: Chronic Qualifiers: Esophagitis presence: without esophagitis Qualified Code(s): K21.9 - Gastro -esophageal reflux disease without esophagitis (4) Hypothyroidism Status: Chronic Qualifiers: Hypothyroidism type: unspecified Qualified Code(s): E03.9 - Hypothyroidism , unspecified (5) Nicotine dependence Status: Chronic Qualifiers: Nicotine product type: cigarettes Substance use status: in withdrawal Qualified Code(s): F17.213 - Nicotine dependence, cigarettes, with withdrawal - AMA Did Patient Leave Against Medical Advice: No
== END 2018-09-21 11:38 | disposition other institution (70) | DRG 773 ==
LOC: YASAS 11:16 → Y6N 16:54
PROC: HZ2ZZZZ Detoxification Services for Substance Abuse Treatment (ICD-10-PCS; principal; 2018-09-16)
DX: F11.23 Opioid dependence with withdrawal (principal); F17.213 Nicotine dependence, cigarettes, with withdrawal; F31.9 Bipolar disorder, unspecified; K21.9 Gastro-esophageal reflux disease without esophagitis; E03.9 Hypothyroidism, unspecified; R11.2 Nausea with vomiting, unspecified; D64.9 Anemia, unspecified; R01.1 Cardiac murmur, unspecified; Z86.19 Personal history of other infectious and parasitic diseases; Z91.5 Personal history of self-harm
CPT/HCPCS: 36415; 80053; 81003; 81015; 86593; 93005; 93010; J0735; Q0162

== ENCOUNTER 2018-09-18 00:08 | Emergency (ER) | payer OTHER ==
[2018-09-18] MEDS ORDERED: SODIUM CHLORIDE 1,000 ML IV STA (00:44)
[2018-09-18] MEDS ORDERED: METOCLOPRAMIDE HCL INJECTION 10 MG/2 ML VIAL IVPUSH ONE (00:44)
--- NOTE | 2018-09-18 00:47 | PDOC ---
History of Present Illness - General Chief Complaint: Nausea/Vomiting Stated Complaint: ABDOMINAL PAIN, VOMIT Time Seen by Provider: 09/18/18 00:34 History Source: Patient - History of Present Illness Initial Comments: 09/18/18 03:04 58 year old female currently at [facility] for opioid dependence / detox BIBA for evaluation of intractable nausea and vomiting. patient was give tigan in [facility] with no improvement in symptoms. Past History - Past Medical History Allergies/Adverse Reactions: Allergies Allergy/AdvReac Type Severity Reaction Status Date / Time No Known Allergies Allergy Verified 09/18/18 01:15 Home Medications: Ambulatory Orders Levothyroxine [Synthroid -] 125 mcg PO DAILY 09/16/18 Lisinopril [Prinivil -] 10 mg PO DAILY 09/16/18 Quetiapine Fumarate [Seroquel] 100 tab PO HS 09/16/18 Anemia: Yes (was given iron pills) Asthma: Yes (ON MDI) Cancer: No Cardiac Disorders: Yes (HEART MURMER) CVA: No COPD: No CHF: No Dementia: No Diabetes: No GI Disorders: Yes (GASTRITIS) Disorders: No HTN: No Hypercholesterolemia: No Kidney Stones: No Liver Disease: No Seizures: No Thyroid Disease: Yes (HYPOTHYROIDISM -ON SYNTHROID) - Surgical History Abdominal Surgery: No Appendectomy: Yes (7 or 8 yo) Cardiac Surgery: No Cholecystectomy: No Lung Surgery: No Neurologic Surgery: No Orthopedic Surgery: No - Reproductive History PID: No - Suicide/Smoking/Psychosocial Hx Smoking History: Current every day smoker Have you smoked in the past 12 months: Yes Number of Cigarettes Smoked Daily: 4 If you are a former smoker, when did you quit?: february 2014 Cigars Per Day: 0 'Breaking Loose' booklet given: 09/16/18 Hx Alcohol Use: Yes Drug/Substance Use Hx: Yes Substance Use Type: Heroin Hx Substance Use Treatment: Yes (detox, rehab, Suboxone) *Physical Exam - Vital Signs 09/18/18 06:18 Last Vital Signs Temp Pulse Resp BP Pulse Ox 98.6 F 102 H 19 153/92 100 09/18/18 00:10 09/18/18 00:10 09/18/18 00:10 09/18/18 00:10 09/18/18 00:10 - Physical Exam General Appearance: Yes: Appropriately Dressed Respiratory/Chest: positive: Lungs Clear, Normal Breath Sounds Gastrointestinal/Abdominal: positive: Normal Bowel Sounds, Soft Extremity: positive: Normal Capillary Refill, Normal Inspection, Delayed Capillary Refill Integumentary: positive: Dry (muccosa) Neurologic: positive: Fully Oriented, Alert ED Treatment Course - LABORATORY CBC & Chemistry Diagram: 09/18/18 01:03 09/18/18 01:03 Medical Decision Making - Medical Decision Making 09/18/18 05:58 patient alert walking. no vomiting. reports feeling better. will d/c back to [facility]. 09/18/18 06:16 patient now tolerated PO water,. no vomiting. will d/c back to [facility] 09/18/18 06:19 I spone to [employer] [employer] DESIGN COORDINATOR. [patient is accepted back to the [facility] for Detox *DC/Admit/Observation/Transfer Diagnosis at time of Disposition: Withdrawal from opioids Vomiting Qualifiers: Vomiting type: unspecified Vomiting Intractability: intractable Nausea presence : with nausea Qualified Code(s): R11.2 - Nausea with vomiting, unspecified - Discharge Dispostion Disposition: HOME Condition at time of disposition: Fair - Referrals - Patient Instructions Printed Discharge Instructions: DI for Vomiting -- Adult Additional Instructions: encourage plenty of fluid intake follow with your doctor as soon as possible. \ return to the ER fi symptoms - Post Discharge Activity
[2018-09-18] MEDS ORDERED: METOCLOPRAMIDE HCL INJECTION 10 MG/2 ML VIAL IVPB ONE (00:49)
[2018-09-18] MEDS ORDERED: FAMOTIDINE 20 MG/50 ML IVPB 20 MG/50 ML MG IVPB ONE ×2 (00:56→01:51)
[2018-09-18] MEDS ORDERED: METOCLOPRAMIDE HCL INJECTION 10 MG/2 ML VIAL ONE (01:13)
[2018-09-18 01:16] VITALS: BMI 29.9
[2018-09-18 01:18] LABS: BASO % 0.8 % (0-2.0); HEMATOCRIT 43.2 % (32.4-45.2); HEMOGLOBIN 14.1 GM/dL (10.7-15.3); LYMPH % 13.9 % (8-40); MCH 26.6 pg (25.7-33.7); MCHC 32.7 g/dl (32.0-36.0); MEAN CELL VOLUME 81.3 fl (80-96); MEAN PLT VOLUME 8.8 fl (7.5-11.1); MONO % 4.3 % (3.8-10.2); PLATELET COUNT 336 K/MM3 (134-434); RBC 5.31 M/mm3 (3.60-5.2); RDW 14.8 % (11.6-15.6)
[2018-09-18 01:42] LABS: ALBUMIN 4.4 g/dl (3.4-5.0); ALK PHOS 86 U/L (45-117); ANION GAP 11 MMOL/L (8-16); BILIRUBIN,TOTAL 0.6 mg/dL (0.2-1); BLOOD UREA NITROGEN 25 mg/dL (7-18); CALCIUM 10.7 mg/dL (8.5-10.1); CHLORIDE 99 mmol/L (98-107); CO2 29 mmol/L (21-32); CREATININE 1.2 mg/dL (0.55-1.3); GLUCOSE,RANDOM 120 mg/dL (74-106); LIPASE 91 U/L (73-393); POTASSIUM 3.2 mmol/L (3.5-5.1); SGOT/AST 28 U/L (15-37); SGPT/ALT 20 U/L (13-61); SODIUM 139 mmol/L (136-145); TOT PROT 9.2 g/dl (6.4-8.2)
[2018-09-18] MEDS ORDERED: LACTATED RINGERS SOLUTION 1000 ML INFUS.BAG IV ONE (02:15)
[2018-09-18 03:16] LABS: URINE APPEARANCE CLEAR; URINE BILIRUBIN NEGATIVE (<2.0 mg/dL); URINE COLOR YELLOW; URINE GLUCOSE (UA) 1+ (NEGATIVE); URINE KETONE 2+ (NEGATIVE); URINE LEUK ESTERASE TRACE (NEGATIVE); URINE NITRITE NEGATIVE (NEGATIVE); URINE PROTEIN 2+ (NEGATIVE); URINE UROBILINOGEN NEGATIVE mg/dL (0.2-1.0)
[2018-09-18 03:31] LABS: EPI CELLS RARE /HPF (FEW); URINE BACTERIA RARE /hpf (NONE SEEN); URINE MUCUS MODERATE
[2018-09-18] MEDS ORDERED: POTASSIUM CHLORIDE TABS 20 MEQ TABLET.ER (FP) PO ONE ×2 (04:56→05:12)
[2018-09-18] MEDS: KCL 10 MEQ IVPB 10 MEQ/100 ML INFUS.BAG IVPB SCH (05:09)
[2018-09-18] MEDS ORDERED: LISINOPRIL 10 MG TABLET (FP) PO ONE (07:54)
[2018-09-18] MEDS ORDERED: LISINOPRIL 5 MG TABLET (FP) ONE (07:55)
--- NOTE | 2018-09-18 07:56 | PDOC ---
*Physical Exam - Vital Signs Last Vital Signs Temp Pulse Resp BP Pulse Ox 98.6 F 102 H 19 153/92 100 09/18/18 00:10 09/18/18 00:10 09/18/18 00:10 09/18/18 00:10 09/18/18 00:10 - Physical Exam General Appearance: Yes: Nourished, Appropriately Dressed. No: Apparent Distress ED Treatment Course - LABORATORY CBC & Chemistry Diagram: 09/18/18 01:03 09/18/18 01:03 - ADDITIONAL ORDERS Additional order review: Laboratory Results 09/18/18 09/18/18 02:50 01:03 Sodium 139 Potassium 3.2 L Chloride 99 Carbon Dioxide 29 Anion Gap 11 BUN 25 H Creatinine 1.2 Creat Clearance w eGFR 46.14 Random Glucose 120 H Calcium 10.7 H Total Bilirubin 0.6 AST 28 ALT 20 Alkaline Phosphatase 86 Total Protein 9.2 H Albumin 4.4 Lipase 91 Urine Color Yellow Urine Appearance Clear Urine pH 7.0 Ur Specific [place] 1.018 Urine Protein 2+ H Urine Glucose (UA) 1+ H Urine Ketones 2+ H Urine Blood 1+ H Urine Nitrite Negative Urine Bilirubin Negative Urine Urobilinogen Negative Ur Leukocyte Esterase Trace Urine WBC (Auto) 5 Urine RBC (Auto) 31 Ur Epithelial Cells Rare Urine Bacteria Rare Urine Mucus Moderate 09/18/18 01:03 RBC 5.31 H MCV 81.3 MCHC 32.7 RDW 14.8 MPV 8.8 Neutrophils % 81.0 Lymphocytes % 13.9 D Monocytes % 4.3 D Eosinophils % 0.0 Basophils % 0.8 - Medications Given in the ED: ED Medications Discontinued Medications Generic Name Dose Route Start Last Admin Trade Name Freq PRN Reason Stop Dose Admin Sodium Chloride 1,000 mls @ 1,000 mls/hr 09/18/18 00:44 09/18/18 01:34 Normal Saline - IV 09/18/18 01:43 1,000 mls/hr ASDIR STA Administration Famotidine/Sodium Chloride 20 mg in 50 mls @ 100 mls/hr 09/18/18 00:56 01:35 Pepcid 20 Mg Premixed Ivpb - IVPB 09/18/18 01:25 100 mls/hr ONCE ONE Administration Potassium Chloride 10 meq in 100 mls @ 100 mls/hr 09/18/18 02:15 09/18/18 05: 09 Potassium Chloride 10 Meq Premix Ivpb - IVPB 09/18/18 04:14 Not Given Q60M DEBRA Lactated Ringer's 1,000 ml 09/18/18 02:15 09/18/18 05:09 Lactated Ringers Solution IV 09/18/18 02:16 1,000 ml NOW ONE Administration Metoclopramide HCl 10 mg 09/18/18 00:44 09/18/18 01:34 Reglan Injection - IVPUSH 09/18/18 00:45 10 mg ONCE ONE Administration Metoclopramide HCl 10 mg 09/18/18 00:49 09/18/18 01:35 Reglan Injection - IVPB 09/18/18 00:50 Not Given ONCE ONE Potassium Chloride 40 meq 09/18/18 04:56 09/18/18 05:16 K-Dur - PO 09/18/18 04:57 40 meq ONCE ONE Administration Medical Decision Making - Medical Decision Making 09/18/18 07:55 Pt to be discharged back to [facility]. Pt b/p at discharge 180/90. Pt usually on Lisinopril. Did not receive home dose. [facility] will take pt back when bp comes down. 09/18/18 08:17 repeat pressure 153/80. DC back to [facility] *DC/Admit/Observation/Transfer Diagnosis at time of Disposition: Withdrawal from opioids Vomiting Qualifiers: Vomiting type: unspecified Vomiting Intractability: intractable Nausea presence : with nausea Qualified Code(s): R11.2 - Nausea with vomiting, unspecified - Discharge Dispostion Disposition: HOME Condition at time of disposition: Fair - Referrals - Patient Instructions Printed Discharge Instructions: DI for Vomiting -- Adult Additional Instructions: encourage plenty of fluid intake follow with your doctor as soon as possible. \ return to the ER fi symptoms - Post Discharge Activity
[2018-09-18 08:26] VITALS: BP 183/94; PULSE 94; TEMP 98.3
--- NOTE | 2018-09-18 11:27 | EKG ---
Test Reason : Blood Pressure : / mmHG Vent. Rate : 082 BPM Atrial Rate : 082 BPM P-R Int : 138 ms QRS Dur : 084 ms QT Int : 396 ms P-R-T Axes : 074 010 054 degrees QTc Int : 462 ms NORMAL SINUS RHYTHM POSSIBLE LEFT ATRIAL ENLARGEMENT BORDERLINE ECG WHEN COMPARED WITH ECG OF 16-SEP-2018 23:26, NO SIGNIFICANT CHANGE WAS FOUND Confirmed by KIARRA SMALL, KANU ([id number]) on 09/18/2018 11:26:43 AM Referred By: Confirmed By:KANU PLUNKETT MD
== END 2018-09-18 07:59 | disposition home or self-care (01) ==
LOC: JER 00:08
PROC: 3E033GC Introduction of Other Therapeutic Substance into Peripheral Vein, Percutaneous Approach (ICD-10-PCS; principal; 2018-09-18)
PROC: 3E033GC Introduction of Other Therapeutic Substance into Peripheral Vein, Percutaneous Approach (ICD-10-PCS; 2018-09-18)
DX: F11.23 Opioid dependence with withdrawal (principal); D64.9 Anemia, unspecified; E03.9 Hypothyroidism, unspecified; J45.909 Unspecified asthma, uncomplicated; F17.210 Nicotine dependence, cigarettes, uncomplicated
CPT/HCPCS: 36415; 80053; 81003; 81015; 83690; 84484; 85025; 93005; 93010; 96365; 96375; 99283-25; J7030

== ENCOUNTER 2018-09-21 11:13 | Inpatient (IN) | payer OTHER ==
[2018-09-21] MEDS ORDERED: IBUPROFEN 400 MG TABLET (FP) PO PRN (13:29)
[2018-09-21] MEDS ORDERED: MAGNESIUM CITRATE 300 ML BOTTLE PO PRN (13:29)
[2018-09-21] MEDS ORDERED: MENTHOL/PHENOL 1 EACH UD MM PRN (13:29)
[2018-09-21] MEDS ORDERED: MAGNESIUM HYDROX 2400MG/30ML ORAL SUSPENSION 30 ML CUP PO PRN (13:29)
[2018-09-21] MEDS ORDERED: ACETAMINOPHEN 325 MG TABLET (FP) PO PRN (13:29)
[2018-09-21] MEDS ORDERED: LOPERAMIDE HCL 2 MG CAPSULE PO PRN (13:29)
--- NOTE | 2018-09-21 13:40 | PN ---
S Progress Note Note: Psychiatric nurse practitioner parcel contractor note: Call received by RN requesting patient's evening medication of seroquel 100mg qhs. Chart reviewed. Will order Seroquel 100mg qhs.
[2018-09-21] MEDS ORDERED: ALBUTEROL SO4 0.083% IH SOL 2.5 MG/3 ML VIAL.NEB. NEB PRN (14:22)
--- NOTE | 2018-09-21 17:49 | HP ---
[facility] SMALL Rehab Assess/Revision - Admission History Admitted to Rehab from: [facility] Date of Admission to Rehab: 09/21/2018 - Vital signs Vital Signs: Vital Signs Period Temp Pulse Resp BP Sys/Gomez Pulse Ox Last 24 Hr 97.9 F 69 18 140/72 - Findings Detox History & Physical reviewed: Yes Concur with findings: Yes Inpatient Rehab Admission - Initial Determination Are CD services needed?: Yes Free of communicable disease: Yes Not in need of hospitalization: Yes - Rehab Admission Criteria Previous failed treatment: Yes Poor recovery environment: Yes Comorbidities: Yes Lacks judgement: No Patient is meeting Inpatient Rehab admission criteria:: Yes
[2018-09-21] MEDS ORDERED: PT OWN MED DRAWER 7, Y5N ONE (19:56)
[2018-09-21] MEDS: THIAMINE HCL 100 MG TABLET (FP) PO SCH (21:38)
[2018-09-21] MEDS: QUEtiapine FUMARATE 100 MG TABLET (FP) PO SCH (21:45)
[2018-09-21] MEDS ORDERED: MELATONIN 5 MG TABLETS PO PRN (22:00)
[2018-09-21] MEDS ORDERED: QUEtiapine FUMARATE 100 MG TABLET (FP) PO SCH (22:00)
[2018-09-22] MEDS: hydrOXYzine PAMOATE 25 MG CAPSULE (FP) PO PRN ×2 (01:31→21:28)
[2018-09-22] MEDS: MAG HYDROX/AL HYDROX/SIMETH 30 ML UNIT-DOSE CUP PO PRN ×2 (03:33→15:42)
[2018-09-22] MEDS: TRIMETHOBENZAMIDE HCL 200MG/2ML INJ IM PRN ×2 (04:51→13:13)
[2018-09-22] MEDS ORDERED: PT OWN MED DRAWER 7, Y5N ONE (06:03)
[2018-09-22] MEDS: LEVOTHYROXINE 100 MCG, LEVOTHYROXINE 25 MCG PO SCH (08:05)
[2018-09-22] MEDS ORDERED: LEVOTHYROXINE NA 125 MCG TABLET (FP) PO SCH (10:00)
[2018-09-22] MEDS ORDERED: amLODIPine BESYLATE 10 MG TABLET (FP) PO ONE (10:02)
--- NOTE | 2018-09-22 10:06 | PN ---
[facility] Progress Note Note: alert,no complaint history of hypertension,hypothyroidism,opiate dependence Vital Signs Temperature 98.6 F 09/22/18 10:00 Pulse Rate 103 H 09/22/18 10:00 Respiratory Rate 18 09/22/18 10:00 Blood Pressure 190/110 H 09/22/18 10:00 O2 Sat by Pulse Oximetry (%) withdrawal symptom treatment add hydrochlorothiazide 25 mgs po daily amlodipine 10 mgs po daily lisinopril 40 mgs po daily flexeril 10 mgs po tid prn clonidine 0.2 mg po bid vital signs monitoring close monitoring and abservation Zofran 0.4 mg sl prn for nausea and or vomiting
[2018-09-22] MEDS: PRENATAL VITAMINS W/ FOLIC ACID TABLET (FP) PO SCH (10:49)
[2018-09-22] MEDS: LISINOPRIL 10 MG TABLET (FP) PO SCH (10:50)
[2018-09-22] MEDS: ONDANSETRON *ODT* 4 MG TABLET SL PRN (10:51)
[2018-09-22] MEDS ORDERED: HYDROCHLOROTHIAZIDE 25 MG TABLET (FP) PO ONE (11:00)
[2018-09-22] MEDS ORDERED: cloNIDine HCL 0.1 MG TABLET PO ONE (11:37)
[2018-09-22] MEDS ORDERED: FLU VACCINE QUAD 60 MCG/0.5 ML (MDV 18-19) IM ONE (12:00)
[2018-09-22] MEDS: CYCLOBENZAPRINE HCL 10 MG TABLET (FP) PO PRN (21:28)
[2018-09-22] MEDS: THIAMINE HCL 100 MG TABLET (FP) PO SCH (21:28)
[2018-09-22] MEDS: QUEtiapine FUMARATE 100 MG TABLET (FP) PO SCH (21:28)
[2018-09-22] MEDS: cloNIDine HCL 0.1 MG TABLET PO SCH (21:29)
[2018-09-23] MEDS ORDERED: PT OWN MED DRAWER 7, Y5N ONE (06:00)
[2018-09-23] MEDS: LEVOTHYROXINE 100 MCG, LEVOTHYROXINE 25 MCG PO SCH (07:00)
[2018-09-23] MEDS: ONDANSETRON *ODT* 4 MG TABLET SL PRN ×2 (07:36→15:47)
[2018-09-23] MEDS: PRENATAL VITAMINS W/ FOLIC ACID TABLET (FP) PO SCH (11:16)
[2018-09-23] MEDS: cloNIDine HCL 0.1 MG TABLET PO SCH ×2 (11:16→21:51)
[2018-09-23] MEDS: amLODIPine BESYLATE 10 MG TABLET (FP) PO SCH (11:17)
[2018-09-23] MEDS: LISINOPRIL 10 MG TABLET (FP) PO SCH (11:17)
[2018-09-23] MEDS: HYDROCHLOROTHIAZIDE 25 MG TABLET (FP) PO SCH (11:17)
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
[2018-09-23] MEDS: CYCLOBENZAPRINE HCL 10 MG TABLET (FP) PO PRN (21:51)
[2018-09-23] MEDS: THIAMINE HCL 100 MG TABLET (FP) PO SCH (21:51)
[2018-09-23] MEDS: hydrOXYzine PAMOATE 25 MG CAPSULE (FP) PO PRN (21:51)
[2018-09-23] MEDS: QUEtiapine FUMARATE 100 MG TABLET (FP) PO SCH (21:51)
[2018-09-24] MEDS ORDERED: PT OWN MED DRAWER 7, Y5N ONE ×4 (02:54→08:55)
[2018-09-24] MEDS: ONDANSETRON *ODT* 4 MG TABLET SL PRN (05:55)
[2018-09-24] MEDS: MAG HYDROX/AL HYDROX/SIMETH 30 ML UNIT-DOSE CUP PO PRN ×2 (06:32→21:51)
[2018-09-24] MEDS: LEVOTHYROXINE 100 MCG, LEVOTHYROXINE 25 MCG PO SCH (07:20)
[2018-09-24] MEDS: CYCLOBENZAPRINE HCL 10 MG TABLET (FP) PO PRN (07:23)
[2018-09-24] MEDS: HYDROCHLOROTHIAZIDE 25 MG TABLET (FP) PO SCH (09:55)
[2018-09-24] MEDS: cloNIDine HCL 0.1 MG TABLET PO SCH ×2 (09:55→21:52)
[2018-09-24] MEDS: amLODIPine BESYLATE 10 MG TABLET (FP) PO SCH (09:55)
[2018-09-24] MEDS: PRENATAL VITAMINS W/ FOLIC ACID TABLET (FP) PO SCH (09:55)
[2018-09-24] MEDS: QUEtiapine FUMARATE 100 MG TABLET (FP) PO SCH ×2 (09:55→21:52)
[2018-09-24] MEDS: LISINOPRIL 10 MG TABLET (FP) PO SCH (09:55)
[2018-09-24] MEDS: lamoTRIgine 25 MG TABLET PO SCH (11:18)
[2018-09-24] MEDS: THIAMINE HCL 100 MG TABLET (FP) PO SCH (21:52)
[2018-09-25] MEDS ORDERED: LEVOTHYROXINE NA 25 MCG TABLET (FP) ONE (04:58)
[2018-09-25] MEDS ORDERED: LEVOTHYROXINE NA 100 MCG TABLET (FP) ONE (04:58)
[2018-09-25] MEDS: LEVOTHYROXINE 100 MCG, LEVOTHYROXINE 25 MCG PO SCH (06:42)
[2018-09-25] MEDS: ONDANSETRON *ODT* 4 MG TABLET SL PRN (06:43)
[2018-09-25] MEDS: amLODIPine BESYLATE 10 MG TABLET (FP) PO SCH (09:23)
[2018-09-25] MEDS: HYDROCHLOROTHIAZIDE 25 MG TABLET (FP) PO SCH (09:23)
[2018-09-25] MEDS: lamoTRIgine 25 MG TABLET PO SCH (09:23)
[2018-09-25] MEDS: cloNIDine HCL 0.1 MG TABLET PO SCH ×2 (09:23→21:33)
[2018-09-25] MEDS: QUEtiapine FUMARATE 100 MG TABLET (FP) PO SCH ×2 (09:24→21:33)
[2018-09-25] MEDS: PRENATAL VITAMINS W/ FOLIC ACID TABLET (FP) PO SCH (09:24)
[2018-09-25] MEDS: LISINOPRIL 10 MG TABLET (FP) PO SCH (09:24)
[2018-09-25] MEDS: CYCLOBENZAPRINE HCL 10 MG TABLET (FP) PO PRN (21:33)
[2018-09-25] MEDS: hydrOXYzine PAMOATE 25 MG CAPSULE (FP) PO PRN (21:33)
[2018-09-25] MEDS: THIAMINE HCL 100 MG TABLET (FP) PO SCH (21:33)
[2018-09-26] MEDS ORDERED: LEVOTHYROXINE NA 25 MCG TABLET (FP) ONE (03:25)
[2018-09-26] MEDS ORDERED: LEVOTHYROXINE NA 100 MCG TABLET (FP) ONE (03:25)
[2018-09-26] MEDS: LEVOTHYROXINE 100 MCG, LEVOTHYROXINE 25 MCG PO SCH (06:19)
[2018-09-26] MEDS: MAG HYDROX/AL HYDROX/SIMETH 30 ML UNIT-DOSE CUP PO PRN (06:20)
[2018-09-26] MEDS: ONDANSETRON *ODT* 4 MG TABLET SL PRN (08:25)
[2018-09-26] MEDS: PRENATAL VITAMINS W/ FOLIC ACID TABLET (FP) PO SCH (09:43)
[2018-09-26] MEDS: cloNIDine HCL 0.1 MG TABLET PO SCH (09:43)
[2018-09-26] MEDS: HYDROCHLOROTHIAZIDE 25 MG TABLET (FP) PO SCH (09:43)
[2018-09-26] MEDS: lamoTRIgine 25 MG TABLET PO SCH (09:44)
[2018-09-26] MEDS: QUEtiapine FUMARATE 100 MG TABLET (FP) PO SCH ×2 (09:44→21:23)
[2018-09-26] MEDS: LISINOPRIL 10 MG TABLET (FP) PO SCH (09:44)
[2018-09-26] MEDS: amLODIPine BESYLATE 10 MG TABLET (FP) PO SCH (09:44)
--- NOTE | 2018-09-26 15:12 | PN ---
[facility] Progress Note Note: NURSE REPORTED THAT THIS PATIENT WANTS TO GET ON SUBOXONE. I SAW PT TODAY AND PATIENT IS NOT SURE IF SHE IS READY TO GET BACK ON SUBOXONE. PT REPORTS SHE WAS ON SUBOXONE AND PICKED UP HER LAST RX ON 09/09/18 FROM HER DOCTOR BUT DID NOT TAKE IT. REPORTS SHE HAS BEEN OFF SUBOXONE FOR 2 MONTHS BEFORE THE LAST LANGUAGE INTERPRETER. ASKED PT IF SHE HAS HER BOTTLE OF SUBOXONE RX BUT PT SAID "I SOLD THEM" AND SAYS SHE RESORTED TO USING HEROIN ON THE STREET DURING THOSE PERIODS. EXPLAINED TO PATIENT THE DISEASE PROCESS OF ADDICTION AND THE NEUROBIOLOGY OF THE BRAIN AND MAT/RELAPSE RELATIONSHIPS. PT VERBALIZED UNDERSTANDING AT THIS TIME BUT STILL NOT SURE. PT IS ALERT O X 3. Vital Signs - 24 hr 09/25/18 09/26/18 09/26/18 22:36 00:30 07:15 Temperature 98.2 F Pulse Rate 98 H 110 H Respiratory 18 16 Rate Blood Pressure 110/80 137/95 09/26/18 09/26/18 09:43 12:37 Temperature Pulse Rate 118 H 94 H Respiratory 17 Rate Blood Pressure 122/85 92/66 IMPRESSION:NAD AMBIVALENT TO MAT AT THIS TIME. PLAN:PT TO BE RE-EVALUATED FOR READINESS OF MAT.
[2018-09-26] MEDS ORDERED: cloNIDine HCL 0.1 MG TABLET PO PRN (15:21)
[2018-09-26] MEDS: THIAMINE HCL 100 MG TABLET (FP) PO SCH (21:23)
[2018-09-27] MEDS: ONDANSETRON *ODT* 4 MG TABLET SL PRN (03:55)
[2018-09-27] MEDS: LEVOTHYROXINE 100 MCG, LEVOTHYROXINE 25 MCG PO SCH (06:13)
[2018-09-27] MEDS: hydrOXYzine PAMOATE 25 MG CAPSULE (FP) PO PRN ×2 (06:48→21:26)
[2018-09-27] MEDS: LISINOPRIL 10 MG TABLET (FP) PO SCH (10:12)
[2018-09-27] MEDS: HYDROCHLOROTHIAZIDE 25 MG TABLET (FP) PO SCH (10:12)
[2018-09-27] MEDS: lamoTRIgine 25 MG TABLET PO SCH (10:12)
[2018-09-27] MEDS: amLODIPine BESYLATE 10 MG TABLET (FP) PO SCH (10:12)
[2018-09-27] MEDS: QUEtiapine FUMARATE 100 MG TABLET (FP) PO SCH ×2 (10:12→21:26)
[2018-09-27] MEDS: PRENATAL VITAMINS W/ FOLIC ACID TABLET (FP) PO SCH (10:12)
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
[2018-09-27] MEDS ORDERED: COLLOIDAL OATMEAL 1 BAR EACH TP PRN (11:16)
[2018-09-27] MEDS ORDERED: RANITIDINE HCL 150 MG TABLET (FP) PO ONE (12:15)
[2018-09-27] MEDS ORDERED: BUPRENORPHINE/NALOXONE 2 MG/0.5 MG FILM PACKET SL ONE (13:45)
[2018-09-27] MEDS: HYDROCORTISONE 1% TOPICAL CREAM 30 GM TUBE TP SCH ×3 (14:58→21:28)
[2018-09-27] MEDS: CYCLOBENZAPRINE HCL 10 MG TABLET (FP) PO PRN (21:26)
[2018-09-27] MEDS: THIAMINE HCL 100 MG TABLET (FP) PO SCH (21:26)
[2018-09-27] MEDS: RANITIDINE HCL 150 MG TABLET (FP) PO SCH (21:29)
[2018-09-28] MEDS ORDERED: LEVOTHYROXINE NA 25 MCG TABLET (FP) ONE (03:22)
[2018-09-28] MEDS ORDERED: LEVOTHYROXINE NA 100 MCG TABLET (FP) ONE (03:23)
[2018-09-28] MEDS: LEVOTHYROXINE 100 MCG, LEVOTHYROXINE 25 MCG PO SCH (06:41)
[2018-09-28] MEDS ORDERED: PT OWN MED DRAWER 7, Y5N ONE (08:29)
[2018-09-28] MEDS: LISINOPRIL 10 MG TABLET (FP) PO SCH (09:56)
[2018-09-28] MEDS: HYDROCHLOROTHIAZIDE 25 MG TABLET (FP) PO SCH (09:56)
[2018-09-28] MEDS: amLODIPine BESYLATE 10 MG TABLET (FP) PO SCH (09:56)
[2018-09-28] MEDS: HYDROCORTISONE 1% TOPICAL CREAM 30 GM TUBE TP SCH ×4 (10:12→21:33)
[2018-09-28] MEDS: lamoTRIgine 25 MG TABLET PO SCH (10:13)
[2018-09-28] MEDS: PRENATAL VITAMINS W/ FOLIC ACID TABLET (FP) PO SCH (10:13)
[2018-09-28] MEDS: QUEtiapine FUMARATE 100 MG TABLET (FP) PO SCH ×2 (10:13→21:32)
[2018-09-28] MEDS: BUPRENORPHINE/NALOXONE 2 MG/0.5 MG FILM PACKET SL SCH (10:13)
[2018-09-28] MEDS: RANITIDINE HCL 150 MG TABLET (FP) PO SCH ×2 (10:13→21:33)
[2018-09-28] MEDS: THIAMINE HCL 100 MG TABLET (FP) PO SCH (21:32)
[2018-09-28] MEDS: MAG HYDROX/AL HYDROX/SIMETH 30 ML UNIT-DOSE CUP PO PRN (22:50)
[2018-09-29] MEDS ORDERED: LEVOTHYROXINE NA 25 MCG TABLET (FP) ONE (02:39)
[2018-09-29] MEDS ORDERED: LEVOTHYROXINE NA 100 MCG TABLET (FP) ONE (02:39)
[2018-09-29] MEDS: LEVOTHYROXINE 100 MCG, LEVOTHYROXINE 25 MCG PO SCH (06:30)
[2018-09-29] MEDS: amLODIPine BESYLATE 10 MG TABLET (FP) PO SCH (09:59)
[2018-09-29] MEDS: lamoTRIgine 25 MG TABLET PO SCH (09:59)
[2018-09-29] MEDS: HYDROCHLOROTHIAZIDE 25 MG TABLET (FP) PO SCH (09:59)
[2018-09-29] MEDS: HYDROCORTISONE 1% TOPICAL CREAM 30 GM TUBE TP SCH ×4 (09:59→21:22)
[2018-09-29] MEDS: QUEtiapine FUMARATE 100 MG TABLET (FP) PO SCH ×2 (10:00→21:21)
[2018-09-29] MEDS: LISINOPRIL 10 MG TABLET (FP) PO SCH (10:00)
[2018-09-29] MEDS: PRENATAL VITAMINS W/ FOLIC ACID TABLET (FP) PO SCH (10:00)
[2018-09-29] MEDS: BUPRENORPHINE/NALOXONE 2 MG/0.5 MG FILM PACKET SL SCH (10:00)
[2018-09-29] MEDS: RANITIDINE HCL 150 MG TABLET (FP) PO SCH ×2 (10:00→21:21)
[2018-09-29] MEDS: THIAMINE HCL 100 MG TABLET (FP) PO SCH (21:21)
[2018-09-30] MEDS ORDERED: LEVOTHYROXINE NA 25 MCG TABLET (FP) ONE (03:25)
[2018-09-30] MEDS ORDERED: LEVOTHYROXINE NA 100 MCG TABLET (FP) ONE (03:25)
[2018-09-30] MEDS: LEVOTHYROXINE 100 MCG, LEVOTHYROXINE 25 MCG PO SCH (06:12)
[2018-09-30] MEDS ORDERED: PT OWN MED DRAWER 7, Y5N ONE ×2 (09:03→13:44)
[2018-09-30] MEDS: LISINOPRIL 10 MG TABLET (FP) PO SCH (10:13)
[2018-09-30] MEDS: QUEtiapine FUMARATE 100 MG TABLET (FP) PO SCH ×2 (10:13→21:49)
[2018-09-30] MEDS: BUPRENORPHINE/NALOXONE 2 MG/0.5 MG FILM PACKET SL SCH (10:13)
[2018-09-30] MEDS: HYDROCHLOROTHIAZIDE 25 MG TABLET (FP) PO SCH (10:13)
[2018-09-30] MEDS: amLODIPine BESYLATE 10 MG TABLET (FP) PO SCH (10:13)
[2018-09-30] MEDS: PRENATAL VITAMINS W/ FOLIC ACID TABLET (FP) PO SCH (10:13)
[2018-09-30] MEDS: RANITIDINE HCL 150 MG TABLET (FP) PO SCH ×2 (10:13→21:49)
[2018-09-30] MEDS: lamoTRIgine 25 MG TABLET PO SCH (10:13)
[2018-09-30] MEDS: HYDROCORTISONE 1% TOPICAL CREAM 30 GM TUBE TP SCH ×4 (10:51→21:50)
[2018-09-30] MEDS: CYCLOBENZAPRINE HCL 10 MG TABLET (FP) PO PRN (21:49)
[2018-09-30] MEDS: THIAMINE HCL 100 MG TABLET (FP) PO SCH (21:49)
[2018-09-30] MEDS: hydrOXYzine PAMOATE 25 MG CAPSULE (FP) PO PRN (21:49)
[2018-10-01] MEDS ORDERED: LEVOTHYROXINE NA 25 MCG TABLET (FP) ONE (06:10)
[2018-10-01] MEDS ORDERED: LEVOTHYROXINE NA 100 MCG TABLET (FP) ONE (06:10)
[2018-10-01] MEDS: LEVOTHYROXINE 100 MCG, LEVOTHYROXINE 25 MCG PO SCH (06:10)
[2018-10-01] MEDS: LISINOPRIL 10 MG TABLET (FP) PO SCH (10:44)
[2018-10-01] MEDS: BUPRENORPHINE/NALOXONE 2 MG/0.5 MG FILM PACKET SL SCH (10:44)
[2018-10-01] MEDS: amLODIPine BESYLATE 10 MG TABLET (FP) PO SCH (10:44)
[2018-10-01] MEDS: lamoTRIgine 25 MG TABLET PO SCH (10:44)
[2018-10-01] MEDS: HYDROCHLOROTHIAZIDE 25 MG TABLET (FP) PO SCH (10:44)
[2018-10-01] MEDS: RANITIDINE HCL 150 MG TABLET (FP) PO SCH ×2 (10:44→21:39)
[2018-10-01] MEDS: QUEtiapine FUMARATE 100 MG TABLET (FP) PO SCH ×2 (10:45→21:39)
[2018-10-01] MEDS: HYDROCORTISONE 1% TOPICAL CREAM 30 GM TUBE TP SCH ×4 (10:45→21:40)
[2018-10-01] MEDS: PRENATAL VITAMINS W/ FOLIC ACID TABLET (FP) PO SCH (10:45)
[2018-10-01] MEDS: CYCLOBENZAPRINE HCL 10 MG TABLET (FP) PO PRN (21:39)
[2018-10-01] MEDS: hydrOXYzine PAMOATE 25 MG CAPSULE (FP) PO PRN (21:39)
[2018-10-01] MEDS: THIAMINE HCL 100 MG TABLET (FP) PO SCH (21:39)
[2018-10-02] MEDS ORDERED: LEVOTHYROXINE NA 25 MCG TABLET (FP) ONE (03:22)
[2018-10-02] MEDS ORDERED: LEVOTHYROXINE NA 100 MCG TABLET (FP) ONE (03:22)
[2018-10-02] MEDS: LEVOTHYROXINE 100 MCG, LEVOTHYROXINE 25 MCG PO SCH (06:18)
[2018-10-02] MEDS: LISINOPRIL 10 MG TABLET (FP) PO SCH (10:32)
[2018-10-02] MEDS: lamoTRIgine 25 MG TABLET PO SCH (10:32)
[2018-10-02] MEDS: HYDROCORTISONE 1% TOPICAL CREAM 30 GM TUBE TP SCH ×4 (10:32→21:36)
[2018-10-02] MEDS: amLODIPine BESYLATE 10 MG TABLET (FP) PO SCH (10:32)
[2018-10-02] MEDS: RANITIDINE HCL 150 MG TABLET (FP) PO SCH ×2 (10:32→21:35)
[2018-10-02] MEDS: HYDROCHLOROTHIAZIDE 25 MG TABLET (FP) PO SCH (10:32)
[2018-10-02] MEDS: BUPRENORPHINE/NALOXONE 2 MG/0.5 MG FILM PACKET SL SCH (10:33)
[2018-10-02] MEDS: QUEtiapine FUMARATE 100 MG TABLET (FP) PO SCH ×2 (10:33→21:35)
[2018-10-02] MEDS: PRENATAL VITAMINS W/ FOLIC ACID TABLET (FP) PO SCH (10:33)
[2018-10-02] MEDS ORDERED: PT OWN MED DRAWER 7, Y5N ONE ×2 (14:27→15:47)
[2018-10-02] MEDS: THIAMINE HCL 100 MG TABLET (FP) PO SCH (21:35)
[2018-10-02] MEDS: hydrOXYzine PAMOATE 25 MG CAPSULE (FP) PO PRN (21:35)
[2018-10-02] MEDS: CYCLOBENZAPRINE HCL 10 MG TABLET (FP) PO PRN (21:35)
[2018-10-03] MEDS ORDERED: LEVOTHYROXINE NA 25 MCG TABLET (FP) ONE (06:05)
[2018-10-03] MEDS: LEVOTHYROXINE 100 MCG, LEVOTHYROXINE 25 MCG PO SCH (06:05)
[2018-10-03] MEDS ORDERED: LEVOTHYROXINE NA 100 MCG TABLET (FP) ONE (06:05)
[2018-10-03] MEDS: HYDROCORTISONE 1% TOPICAL CREAM 30 GM TUBE TP SCH ×4 (10:21→21:16)
[2018-10-03] MEDS: BUPRENORPHINE/NALOXONE 2 MG/0.5 MG FILM PACKET SL SCH (10:21)
[2018-10-03] MEDS: HYDROCHLOROTHIAZIDE 25 MG TABLET (FP) PO SCH (10:22)
[2018-10-03] MEDS: LISINOPRIL 10 MG TABLET (FP) PO SCH (10:22)
[2018-10-03] MEDS: RANITIDINE HCL 150 MG TABLET (FP) PO SCH ×2 (10:22→21:13)
[2018-10-03] MEDS: QUEtiapine FUMARATE 100 MG TABLET (FP) PO SCH ×2 (10:22→21:13)
[2018-10-03] MEDS: PRENATAL VITAMINS W/ FOLIC ACID TABLET (FP) PO SCH (10:22)
[2018-10-03] MEDS: amLODIPine BESYLATE 10 MG TABLET (FP) PO SCH (10:22)
[2018-10-03] MEDS: lamoTRIgine 25 MG TABLET PO SCH (10:22)
[2018-10-03] MEDS: THIAMINE HCL 100 MG TABLET (FP) PO SCH (21:12)
[2018-10-03] MEDS: hydrOXYzine PAMOATE 25 MG CAPSULE (FP) PO PRN (21:13)
[2018-10-04] MEDS ORDERED: LEVOTHYROXINE NA 25 MCG TABLET (FP) ONE (05:47)
[2018-10-04] MEDS ORDERED: LEVOTHYROXINE NA 100 MCG TABLET (FP) ONE (05:47)
[2018-10-04] MEDS: LEVOTHYROXINE 100 MCG, LEVOTHYROXINE 25 MCG PO SCH (06:07)
[2018-10-04 07:10] VITALS: TEMP 98.1
[2018-10-04] MEDS: BUPRENORPHINE/NALOXONE 2 MG/0.5 MG FILM PACKET SL SCH (09:06)
[2018-10-04] MEDS: PRENATAL VITAMINS W/ FOLIC ACID TABLET (FP) PO SCH (09:06)
[2018-10-04] MEDS: RANITIDINE HCL 150 MG TABLET (FP) PO SCH (09:06)
[2018-10-04] MEDS: amLODIPine BESYLATE 10 MG TABLET (FP) PO SCH (09:07)
[2018-10-04] MEDS: lamoTRIgine 25 MG TABLET PO SCH (09:07)
[2018-10-04] MEDS: LISINOPRIL 10 MG TABLET (FP) PO SCH (09:07)
[2018-10-04] MEDS: HYDROCHLOROTHIAZIDE 25 MG TABLET (FP) PO SCH (09:07)
[2018-10-04] MEDS: QUEtiapine FUMARATE 100 MG TABLET (FP) PO SCH (09:07)
[2018-10-04] MEDS: HYDROCORTISONE 1% TOPICAL CREAM 30 GM TUBE TP SCH (09:08)
--- NOTE | 2018-10-04 09:08 | PN ---
Psychiatric Progress Note Vital Signs: Vital Signs Period Temp Pulse Resp BP Sys/Gomez Pulse Ox Last 24 Hr 98.1 F 100-102 -18 104-109/75-79 Date of Session: 10/04/18 Chief Complaint:: Discharge visit HPI: Patient addressed Opioid dependence comorbid with Substance induced sleep disorder,PTSD. Current Medications: Active Medications Generic Name Dose Route Start Last Admin Trade Name Freq PRN Reason Stop Dose Admin Acetaminophen 650 mg 09/21/18 13:29 Tylenol - PO Q4H PRN FEVER Al Hydroxide/Mg Hydroxide 30 ml 09/21/18 13:29 09/28/18 22:50 Mylanta Oral Suspension - PO 30 ml Q6H PRN Administration DYSPEPSIA Amlodipine Besylate 10 mg 09/23/18 10:00 10/03/18 10:22 Norvasc - PO 10 mg DAILY DEBRA Administration Buprenorphine/Naloxone 1 each 09/28/18 10:00 10/03/18 10:21 Suboxone 2mg/0.5mg Sl Film - SL 1 each DAILY DEBRA Administration Clonidine 0.1 mg 09/26/18 15:21 Catapres - PO BID PRN WITHDRAWAL(CONT SUBST) Cyclobenzaprine HCl 10 mg 09/21/18 14:23 10/02/18 21:35 Flexeril - PO 10 mg TID PRN Administration MUSCLE SPASMS Eucalyptus/Menthol/Phenol/Sorbitol 1 each 09/21/18 13:29 Cepastat Lozenge - MM Q4H PRN SORE THROAT Hydrochlorothiazide 25 mg 09/23/18 10:00 10/03/18 10:22 Hctz - PO 25 mg DAILY DEBRA Administration Hydrocortisone 1 applic 09/27/18 14:00 10/03/18 21:16 Hytone 1% Cream - TP Not Given QID DEBRA Hydroxyzine Pamoate 25 mg 09/21/18 13:29 10/03/18 21:13 Vistaril - PO 25 mg Q4H PRN Administration AGITATION Ibuprofen 400 mg 09/21/18 13:29 Motrin - PO Q6H PRN Pain Level 4-6 Lamotrigine 25 mg 09/24/18 10:00 10/03/18 10:22 Lamictal - PO 25 mg DAILY DEBRA Administration Levothyroxine Sodium 100 mcg/ 125 mcg 09/22/18 07:00 10/04/18 06:07 Levothyroxine Sodium 25 mcg PO 125 mcg DAILY@0700 DEBRA Administration Lisinopril 10 mg 09/22/18 10:00 10/03/18 10:22 Prinivil PO 10 mg DAILY DEBRA Administration Loperamide HCl 4 mg 09/21/18 13:29 Imodium - PO Q6H PRN DIARRHEA Magnesium Citrate 300 ml 09/21/18 13:29 Citroma - PO Q48H PRN CONSTIPATION Magnesium Hydroxide 30 ml 09/21/18 13:29 Milk Of Magnesia - PO DAILY PRN CONSTIPATION Melatonin 5 mg 09/21/18 22:00 09/24/18 21:52 Melatonin PO 5 mg HS PRN Administration INSOMNIA Ondansetron HCl 4 mg 09/22/18 10:05 09/27/18 03:55 Zofran Odt - SL 4 mg Q6H PRN Administration NAUSEA AND/OR VOMITING Multivit/Folic Acid/Iron 1 tab 09/22/18 10:00 10/03/18 10:22 Vitamins (Sjr) - PO 1 tab DAILY DEBRA Administration Quetiapine Fumarate 100 mg 09/24/18 10:00 10/03/18 21:13 Seroquel - PO 100 mg BID DEBRA Administration Ranitidine HCl 150 mg 09/27/18 22:00 10/03/18 21:13 Zantac - PO 150 mg BID DEBRA Administration Thiamine HCl 100 mg 09/21/18 22:00 10/03/18 21:12 Vitamin B1 - PO 100 mg HS DEBRA Administration Trimethobenzamide HCl 200 mg 09/22/18 04:37 09/22/18 13:13 Tigan Injection - IM 200 mg Q6H PRN Administration NAUSEA Current Side Effect: No Lab tests ordered: No Lab tests reviewed: Yes Provider note:: Patient completed this program today.she has met her treatment goals and will continue to address her issue on outpatient basis.Patient will continue current medicatiosn:Lamictal 25 mg po daily and Seroquel 100 mg po hs.Scripts for 30 provided. Supportive therapy provided focusing on relapse prevention. Patient is stable for discharge today. Total face to face time:: 30 Mental Status Exam - Mental Status Exam Alert and Oriented to: Time, Place, Person Cognitive Function: Grossly Intact Patient Appearance: Well Groomed Mood: Euthymic Affect: Appropriate, Mood Congruent Patient Behavior: Cooperative Voice Loudness: Normal Thought Process: Goal Oriented Thought Disorder: Not Present Hallucinations: Denies Suicidal Ideation: Denies Homicidal Ideation: Denies Insight/Judgement: Fair Sleep: Fair Appetite: Good Muscle strength/Tone: Normal Gait/Station: Normal Psychiatric Treatment Plan - Problem List (1) Opioid dependence Current Visit: Yes (2) Substance-induced sleep disorder Current Visit: Yes (3) PTSD (post-traumatic stress disorder) Current Visit: Yes (4) Abscess of left arm Current Visit: No
[2018-10-04 09:22] VITALS: BP 113/76; PULSE 106
== END 2018-10-04 09:32 | disposition home or self-care (01) | DRG 772 ==
LOC: YASAS 11:13 → Y3E 11:15
PROVIDERS: ADMIT Psychiatry & Neurology Psychiatry; ATTEND Psychiatry & Neurology Psychiatry
PROC: HZ42ZZZ Group Counseling for Substance Abuse Treatment, Cognitive-Behavioral (ICD-10-PCS; principal; 2018-09-21)
DX: F11.20 Opioid dependence, uncomplicated (principal); F17.211 Nicotine dependence, cigarettes, in remission; F19.280 Other psychoactive substance dependence with psychoactive substance-induced anxiety disorder; F19.282 Other psychoactive substance dependence with psychoactive substance-induced sleep disorder; F31.81 Bipolar II disorder; F43.10 Post-traumatic stress disorder, unspecified; L02.414 Cutaneous abscess of left upper limb; I10 Essential (primary) hypertension; K21.9 Gastro-esophageal reflux disease without esophagitis; J45.909 Unspecified asthma, uncomplicated; J44.9 Chronic obstructive pulmonary disease, unspecified; E03.9 Hypothyroidism, unspecified; B18.2 Chronic viral hepatitis C; D64.9 Anemia, unspecified
CPT/HCPCS: J0735; Q0162